=== PATIENT | male | born 1950 | race Two or more races ===

== ENCOUNTER 2018-12-28 01:55 | Inpatient (IN) | payer MEDICARE, OTHER ==
[2018-12-28] VITALS (7 sets, daily range): BP systolic 110–133; BP diastolic 67–77
[~2018-12-28] VITALS: Ht 167.6 cm; Wt 90.3 kg
--- NOTE | 2018-12-28 02:10 | Emergency Room Report ---
History of Present Illness General Chief Complaint: Chest Pain Source: Patient, Medical Record Present Illness HPI This is a 68-year-old male who is a [facility] patient. He has a history of sepsis, GI bleed. He presents with chief complaint of chest pain. Onset was about 40 minutes prior to arrival. He was laying in bed and developed sudden left-sided chest pain. It was sharp. No radiation. No nausea no vomiting. No fever chills. halfway gave him a dose of nitroglycerin. They called 911. He said the pain is 8 out of 10. Nursing Education Specialist gave him nitroglycerin and aspirin. Now pain is 1 out of 10. Never had this problem before. No exertional component. Allergies: Coded Allergies: No Known Allergies (Unverified , 12/28/18) Patient History Past Medical History: see triage record, old chart reviewed Past Surgical History: other Pertinent Family History: none Social History: Denies: smoking Immunizations: other Reviewed Nursing Documentation: PMH: Agreed; PSxH: Agreed Nursing Documentation-PM Past Medical History: No History, Except For Review of Systems Eye: Denies: eye pain, blurred vision ENT: Denies: ear pain, nose congestion, throat swelling Respiratory: Denies: cough, shortness of breath Cardiovascular: Reports: chest pain; Denies: palpitations Gastrointestinal: Denies: abdominal pain, diarrhea, nausea, vomiting Musculoskeletal: Denies: back pain, joint pain Skin: Denies: rash Neurological: Denies: headache, numbness Endocrine: Denies: increased thirst, increased urine Hematologic/Lymphatic: Denies: easy bruising All Other Systems: negative except mentioned in HPI Physical Exam Vital Signs Date Time Temp Pulse Resp B/P (MAP) Pulse Ox O2 Delivery O2 Flow Rate FiO2 12/28/18 01:53 98.2 72 18 118/75 (89) 98 Room Air Vitals normal Sp02 EP Interpretation: reviewed, normal General Appearance: well appearing, no apparent distress, alert Head: normocephalic, atraumatic Eyes: bilateral eye PERRL, bilateral eye EOMI ENT: hearing grossly normal, normal pharynx Neck: full range of motion, supple, no meningismus Respiratory: chest non-tender, lungs clear, normal breath sounds Cardiovascular #1: regular rate, rhythm, no murmur Gastrointestinal: normal bowel sounds, non tender, no mass, no organomegaly, no bruit, non-distended Musculoskeletal: back normal, normal range of motion Psychiatric: mood/affect normal Medical Decision Making Diagnostic Impression: Primary Impression: Chest pain Qualified Codes: R07.9 - Chest pain, unspecified Additional Impression: UTI (urinary tract infection) Qualified Codes: N30.00 - Acute cystitis without hematuria ER Course Patient presents with chest pain that got better with nitro. Atypical in nature but based on his age and risk factor, will admit for rule out. He does have a urinary tract infections and Rocephin was given. Based on his insurance , will admit to Dr. Aldridge. I discussed case with him. EKG Diagnostic Results Rate: normal Rhythm: NSR ST Segments: other - NSST changes Rhythm Strip Diag. Results EP Interpretation: yes Rate: 65 Rhythm: NSR, no PVC's, no ectopy Chest X-Ray Diagnostic Results Chest X-Ray Diagnostic Results : Chest X-Ray Ordered: Yes # of Views/Limited/Complete: 1 View Indication: Chest Pain EP Interpretation: Yes Interpretation: no consolidation, no effusion, no pneumothorax, no acute cardiopulmonary disease Impression: No acute disease Electronically Signed by: Micah Gooden MD Last Vital Signs Date Time Temp Pulse Resp B/P (MAP) Pulse Ox O2 Delivery O2 Flow Rate FiO2 12/28/18 01:53 98.2 72 18 118/75 (89) 98 Room Air Status: improved Disposition: ADMITTED INPATIENT Condition: Serious Micah Gooden MD Dec 28, 2018 02:10
[2018-12-28] MEDS ORDERED: NITROSTAT0.4 M2 SL (02:13)
[2018-12-28] MEDS ORDERED: DOCUSATE SODIU100 MG ORAL (02:13)
[2018-12-28] MEDS ORDERED: PANTOPRAZOLE SO40 MG ORAL (02:13)
[2018-12-28] MEDS ORDERED: COUMADIN2.5 MG ORAL (02:13)
[2018-12-28] MEDS ORDERED: FERROUSUL325 M1 PO (02:13)
[2018-12-28] MEDS ORDERED: CARVEDILOL3.125 MG ORAL (02:13)
[2018-12-28] MEDS ORDERED: LACTULOSE20 GM/301 ORAL (02:13)
[2018-12-28] MEDS ORDERED: FUROSEMIDE20 M1 ORAL (02:13)
[2018-12-28] MEDS ORDERED: SENNA8.6 M2 PO (02:13)
[2018-12-28] MEDS ORDERED: ULTRAM50 MG ORAL (02:13)
--- NOTE | 2018-12-28 02:15 | NUR ---
ER Nurse Note: Pt BIBA [facility] c/o chest pain, sudden onset while pt is resting in bed for about 40 mins ago prior to arrival. Pt stated pain was 6/10 throbbing and pressure on LT chest that radiates for LT arm. On route, EMS administed nitro and asa; effective and pain is 1/10. Pt a&ox4, VSS, no signs of acute distress. Redness with blanching was found around the groin and sacral area. SLIV started on RT wrist by EMS; patent. Will continue to [facility].
[2018-12-28 02:23] LABS: BASOPHILS % (AUTO) 0.5 % (0.0-2.0); EOSINOPHILS % (AUTO) 2.3 % (0.0-3.0); HEMATOCRIT 28.5 % (42.0-52.0); HEMOGLOBIN 9.2 G/DL (14.2-18.0); LYMPHOCYTES % (AUTO) 23.2 % (20.0-45.0); MEAN CORPUSCULAR VOLUME 83 FL (80-99); MONOCYTES % (AUTO) 7.7 % (1.0-10.0); NEUTROPHILS % (AUTO) 66.3 % (45.0-75.0); PLATELET COUNT 186 K/UL (150-450); RED BLOOD COUNT 3.41 M/UL (4.70-6.10); RED CELL DISTRIBUTION WIDTH 17.3 % (11.6-14.8); WHITE BLOOD COUNT 6.3 K/UL (4.8-10.8)
[2018-12-28 02:26] LABS: BILIRUBIN, URINE NEGATIVE (NEGATIVE); GLUCOSE, URINE (UA) NEGATIVE (NEGATIVE); KETONES,URINE 1+ (NEGATIVE); LEUKOCYTE ESTERASE ,URINE 1+ (NEGATIVE); NITRITE,URINE NEGATIVE (NEGATIVE); PH,URINE 6 (4.5-8.0); PROTEIN,URINE 2+ (NEGATIVE); UROBILINOGEN,URINE 1 MG/DL (0.0-1.0)
[2018-12-28 02:29] LABS: ANION GAP 6 mmol/L (5-15); BLOOD UREA NITROGEN 12 mg/dL (7-18); CARBON DIOXIDE 28 MMOL/L (21-32); CHLORIDE 102 MMOL/L (98-107); CREATININE 1.2 MG/DL (0.55-1.30); POTASSIUM 3.6 MMOL/L (3.5-5.1); SODIUM 136 MMOL/L (136-145)
[2018-12-28 02:35] LABS: COLOR,URINE YELLOW
[2018-12-28 02:36] LABS: APPEARANCE,URINE SLIGHTLY CLOUDY
[2018-12-28 02:43] LABS: ALANINE AMINOTRANSFERASE 68 U/L (12-78); ALBUMIN 2.2 G/DL (3.4-5.0); ALBUMIN/GLOBULIN RATIO 0.4 (1.0-2.7); ALKALINE PHOSPHATASE 135 U/L (46-116); ASPARTATE AMINO TRANSFERASE 73 U/L (15-37); BILIRUBIN,TOTAL 0.4 MG/DL (0.2-1.0); CREATINE KINASE 34 U/L (26-308)
--- NOTE | 2018-12-28 02:46 | NUR ---
ER Nurse Note: All orders completed per ERMD orders. Pictures uploaded. Pt calm, relaxed, cooperative. VSS. All safety measures met; will continue to monitor.
[2018-12-28] MEDS ORDERED: cefTRIAXone 1 GM in NS 55 ML IVPB ONE (03:00)
--- NOTE | 2018-12-28 03:22 | NUR ---
ER Nurse Note: Report given to YASMIN Tabor in tele for continuity of care. Pt a&ox4, VSS, no signs of distress. All orders completed per ERMD orders. Per CN in tele, room is getting ready and was told to bring pt in 10 minutes. All safety measures met; will continue to montior.
--- NOTE | 2018-12-28 03:40 | NUR ---
ER Nurse Note: Pt transported 207-2; pt stable.
--- NOTE | 2018-12-28 03:45 | NUR ---
NURSE NOTES: Received report from Saw Cormier RN. regarding patient's transfer to TELE floor from ED. No belongings noted and head to toe assessment initiated with noted skin issue observed (pictures taken). Patient is AAO X4 Prydeinig speaking with some Frisian noted. No complaints of CP or discomfort at this time. IV line intact and patent with continuous cardiac monitoring in place per protocol. Safety precaution in place; siderails X3 up, call light within reach, bed in lowest position, brakes and alarm on at all times. Patient is on bedrest and offered urinal at bedside. Needs and wants anticipated and attended, will continue plan of care.
[2018-12-28] MEDS ORDERED: Nitroglycerin Subl 0.4mg tab SL PRN (04:45)
--- NOTE | 2018-12-28 04:50 | NUR ---
NURSE NOTES: Spoke with Saulo Aldridge MD. regarding patient's arrival on the floor. New orders received and carried out. Will continue to monitor.
--- NOTE | 2018-12-28 06:00 | NUR ---
NURSE NOTES: EKG result reported to Saulo Aldridge MD. NNO
--- NOTE | 2018-12-28 07:10 | NUR ---
NURSE NOTES: Report received from Leander HOFFMAN.Pt asleep but awakens easily with verbal command alert oriented,,no resp distress presented,on RA,denies any c/o chest pain,verbalized feeling better,SR on the monitor,IV site to RH heplock intact ,skin warm and dry ,HOB elevated,SR up x2 bed lock in lowest position,will continue with plans of care.
[2018-12-28] MEDS ORDERED: Warfarin Sodium 2.5mg ORAL SCH (09:00)
[2018-12-28] MEDS: Lactulose 20gm/30ml UDC ORAL SCH (09:41)
[2018-12-28] MEDS: Docusate 100mg cap ORAL SCH ×2 (09:42→17:50)
[2018-12-28] MEDS: Sennosides 8.6mg tab ORAL SCH (09:42)
--- NOTE | 2018-12-28 13:28 | NUR ---
*-* INSURANCE *-* AVAILABLE CLINICALS HAVE BEEN FAXED TO: [facility] F: [phone] P: [phone]
--- NOTE | 2018-12-28 13:30 | NUR ---
NURSE NOTES: Dr Aldridge at bedside,discussed with pt re plans of care with an wrist liner Renae HOFFMAN.
--- NOTE | 2018-12-28 14:52 | History & Physical ---
History and Physical History & Physicial dict ACS CHF hx PE AZUL multiple other medical problems see orders cardiology to see Zac Aldridge MD Dec 28, 2018 14:52
[2018-12-28] MEDS ORDERED: Warfarin Sodium 1mg ORAL SCH (17:00)
--- NOTE | 2018-12-28 17:15 | History and Physical Report ---
DATE OF ADMISSION: 12/28/2018 CHIEF COMPLAINT: Chest pain. HISTORY OF PRESENT ILLNESS: The patient was hospitalized recently at another facility for sepsis and discharged to a retirement where he resided for several weeks getting rehabilitation therapy. Yesterday, he developed severe chest pain across the right anterior chest. He was transported to the emergency department here by paramedics and chest pain resolved after nitroglycerin. Admission was arranged. PAST MEDICAL HISTORY: The patient is a poor historian. Records from the retirement are reviewed. He has a history of hypertension, possible coronary disease, congestive heart failure with ejection fraction 25 to 30 percent, cardiomyopathy, atrial fibrillation with rapid ventricular response, now in sinus rhythm with PVC's. Recently, he has been admitted with sepsis due to urinary tract infection and GI bleeding due to a gastric ulcer. He had a right lower lobe pulmonary embolism and is now on anticoagulants. He had severe aortic stenosis and underwent transcutaneous aortic valve replacement on December 03, 2018. He has had a past stroke and has difficulty ambulating. The details of his coronary disease are not known. He has pulmonary hypertension and sleep apnea, on CPAP. MEDICATIONS: Reviewed in detail and reconciled. He is on Coumadin with therapeutic INR. ALLERGIES: None. REVIEW OF SYSTEMS: He has no chest pain at this time. He has no shortness of breath. There is no nausea, vomiting, or diarrhea. He has no difficulty urinating. There are no headaches. He has no visual difficulty. He is not ambulatory. He eats regular diet. PHYSICAL EXAMINATION: GENERAL: The patient is alert and responds appropriately in Ukrainian. VITAL SIGNS: Stable. The dish room worker shows sinus rhythm with PVC's. SKIN: Warm and dry. He is obese. HEENT: The head is normocephalic. CHEST: Clear. CARDIAC: Rhythm is irregular. ABDOMEN: Soft and nontender. EXTREMITIES: No clubbing, cyanosis, or edema. CODE STATUS: Full Code. IMPRESSION: 1. Acute coronary syndrome with history of coronary heart disease. Details unknown. 2. Status post TAVR. 3. History of atrial fibrillation and PVC's, currently in sinus rhythm. 4. History of sepsis. 5. Recent GI bleed due to gastric ulcer. 6. Recent pulmonary embolism, on therapeutic Coumadin. 7. Congestive heart failure with reduced ejection fraction. 8. Hyperlipidemia. 9. History of stroke involving the right middle cerebral artery. 10. Aortic atheromatous disease. 11. Anemia. PLAN: The patient has had normal troponin tests since admission. He will be seen by Cardiology and some cardiac imaging will be obtained to evaluate the severity of his coronary disease. He will be transferred back to a nursing facility and his condition is stabilized. However, he declines to go back to the same facility he came from. Zac Aldridge M.D. DR: GEORGES JOB#: [id number] CC:
--- NOTE | 2018-12-28 17:23 | Consultation ---
Consult Note Assessment/Plan IMP: CP doubt ischemia Elevated LFTs S/P TAVR AZUL Obesity H/O PE Plan: Abdominal CONSTANTIN Lexiscan stress test on Mon Adjust Coumadin Continue other meds. Discussed with Ag Salomon MD Dec 28, 2018 17:23
--- NOTE | 2018-12-28 17:47 | Cardiology Report ---
APPROVED REPORT EXAM: Two-dimensional and M-mode echocardiogram with Doppler and color Doppler. INDICATION Congestive Heart Failure M-Mode DIMENSIONS IVSd1.1 (0.7-1.1cm)Left Atrium (MM)3.5 (1.6-4.0cm) LVDd6.5 (3.5-5.6cm)Aortic Root2.9 (2.0-3.7cm) PWd1.4 (0.7-1.1cm)Aortic Cusp Exc.1.1 (1.5-2.0cm) LVDs4.9 (2.5-4.0cm) PWs1.8 cm Technically difficult study due to poor acoustic windows. Study quality precludes accurate assessment of regional wall motion. Mild left ventricular enlargement. Global left ventricular hypokinesis. Left ventricular ejection fraction estimated to be 40-45 %. Mild left ventricular hypertrophy. No evidence of pericardial effusion. Mild left atrial enlargement by 2D. Right atrial chamber size is within normal limits. Right ventricular chamber size at upper limits of normal. S/P TAVR with decreased aortic valve cusp excursion c/w aortic stenosis. Mildly thickened mitral valve leaflets with normal excursion. Mild mitral annulus and aortic root calcification. Pulmonic valve not well visualized. Normal tricuspid valve structure. IVC is normal in size with physiological collapse. A color flow and spectral Doppler study was performed and revealed: Mild to moderate aortic regurgitation. Peak aortic valve gradient of 53 mmHg and a mean of 27 mmHg. Aortic valve area 0.7 cm2 calculated by continuity equation. NOTE: Presence of AI may cause an overestimatio of A.S. Mild mitral regurgitation. Mitral inflow velocities indicates possible pseudo normalization pattern implying significant left ventricular diastolic dysfunction (Grade II). Mild tricuspid regurgitation. Tricuspid systolic velocities suggests peak right ventricular systolic pressure of 38 mmHg, consistent with mild pulmonary hypertension. No pulmonic regurgitation present.
--- NOTE | 2018-12-28 17:55 | Diagnostic Imaging Report ---
Indication: Chest pain for 2 hours Technique: One view of the chest Comparison: none Findings: Heart is borderline enlarged. The lungs and pleural spaces are clear. The aorta is tortuous and calcified Impression: Borderline cardiomegaly No acute process
--- NOTE | 2018-12-28 19:34 | NUR ---
HAND-OFF: Report given to Kristian Hilton RN,pt stable no c/o chest pain during the shift.
--- NOTE | 2018-12-28 19:46 | NUR ---
NURSE NOTES: Report received from YASMIN Henriquez. Observed pt lying in the bed. A/O x4, denies any pain. No signs of acute distress at this time. SR with PVC noted on telemetry monitor. IV on R FA 20G, SL. Bed in the lowest position. Side rails up x3. Call light within reach. Will continue to monitor.
--- NOTE | 2018-12-28 22:47 | NUR ---
RESPIRATORY NOTE: Pt placed on CPAP for nightly use. Pt now on CPAP 10, 30%. Pt placed on a Facial mask, skin intact, no redness/breakdowns noted. Foam tape applied on pt's nosebridge/cheeks/chin to prevent any mask irritations. Pt is alert/awake, follows commands. B/S eduarda. diminished, nonproductive cough. CPAP plugged into red outlet, alarms on & audible. Pt in no apparent distress at this time. Will continue plan of care.
--- NOTE | 2018-12-28 23:00 | NUR ---
NURSE NOTES: Left a message to regarding Mg is 1.4. Awaiting for call back.
--- NOTE | 2018-12-28 23:16 | NUR ---
NURSE NOTES: Notified regarding pt having trigeminy, asymptomatic, BP 130/69, P 60. New order received and will be carried out.
--- NOTE | 2018-12-28 23:46 | NUR ---
NURSE NOTES: Left a message regarding 4 beats of Vtach, asymptomatic, BP 120/60, P 60. Pt appears calm and comfortable. Awaiting call back. Will continue to monitor.
--- NOTE | 2018-12-28 23:54 | NUR ---
NURSE NOTES: New order of Mg 2g IVPB received and will be carried out. Pt appears calm and comfortable. On CPAP with no distress noted. Will continue to monitor.
[2018-12-29] VITALS: BP 131/61
--- NOTE | 2018-12-29 00:30 | Consultation ---
DATE OF CONSULTATION: 12/28/2018 CARDIOLOGY CONSULTATION CONSULTING PHYSICIAN: Ag Diaz M.D. ATTENDING PHYSICIAN: Zac Aldridge M.D. REASON FOR CONSULTATION: Evaluation of chest pain in patient with complicated past medical history. HISTORY OF PRESENT ILLNESS: The patient is a 68-year-old male, who was brought in from the [facility] because of an episode of chest pain, which lasted for 30 minutes. The patient describes the pain as a sharp pain, which started in the right lower chest area and radiated to the left lower chest area and was not exertionally induced and not related to food or activity. The patient has been sedentary and walks with a walker and is mostly in bed. The patient has had no further chest pain since admission. Troponins have been negative so far. EKG shows left bundle branch block with PVC's and has been nondiagnostic. PAST MEDICAL HISTORY: Significant for: 1. Aortic stenosis status post TAVR, 2. History of renal insufficiency. 3. History of gastric ulcer with H. pylori. 4. History of obstructive sleep apnea on CPAP. 5. Obesity. 6. History of UTI. 7. History of PVC's. 8. History of first-degree AV block. 9. History of pulmonary embolism. MEDICATIONS: Include Coumadin 2 mg a day, which has now been reduced to 1 mg due to elevated INR, carvedilol 3.125 mg b.i.d, Lasix 20 mg daily, lactulose 20 mg daily, Pantoprazole 40 mg daily, Senokot daily, ferrous sulfate 325 mg daily, nitroglycerin p.r.n., tramadol p.r.n., and ceftriaxone IV. ALLERGIES: None known. REVIEW OF SYSTEMS: GENERAL: Denies weight loss, fevers, chills, or night sweats. HEENT: Denies headaches or sinus problem. PULMONARY: Denies cough or sputum production. CARDIOVASCULAR: Complains of chest pain as above, but currently has no chest pain and denies chest pain with activity. He does not exercise, but walks with a walker at the assisted. GASTROINTESTINAL: Denies dysphagia, dyspepsia, abdominal pain, nausea, vomiting, or diarrhea. GENITOURINARY: Denies dysuria or hematuria. MUSCULOSKELETAL: Complains of pain in the upper extremities and his hands. PHYSICAL EXAMINATION: VITAL SIGNS: Blood pressure is 127/71, heart rate 97, temp afebrile. HEENT: Unremarkable. NECK: Supple. Jugular venous pressure is about 8 cm of water. LUNGS: Without rales or wheezes, but breath sounds are diminished at the bases with poor inspiration. CARDIAC: S1, S2 are normal. Heart sounds are distant. No murmurs heard. ABDOMEN: Obese, soft, and nontender. Bowel sounds are present. EXTREMITIES: Without cyanosis, clubbing, or edema, but there were chronic changes of the skin of the lower extremities bilaterally. DIAGNOSTIC DATA: EKG shows sinus rhythm with frequent PVC's and left bundle branch block and first-degree AV block. LABORATORY DATA: Reviewed. An echocardiogram was obtained which shows a mildly reduced LV ejection fraction with ejection fraction of 40 to 45 percent with aortic valve replacement. Aortic valve area is reduced with aortic valve area of 0.7 cm consistent with severe aortic stenosis. There is mild tricuspid and mitral regurgitation. The tricuspid velocities suggest systolic pressure of 38 mmHg consistent with mild pulmonary hypertension. IMPRESSION: 1. Status post TAVR, still with increased Aortic valve gradient which may be due to the valve structure and presence of AI. 2. Cardiomyopathy with reduced LV ejection fraction. 3. LV dysfunction with congestive heart failure. 4. Left bundle branch block. 5. First-degree AV block. 6. Chest pain, most likely, nonischemic based on the nature of the pain and lack of history of coronary artery disease. 7. Obstructive sleep apnea. 8. Obesity. 9. History of GI bleed. PLAN OF SUGGESTION: At this point, we will continue current medication and reduced dose of Coumadin as has been initiated. Echocardiogram and EKGs have been reviewed. Will schedule Lexiscan nuclear stress test to r/o ischemia. If stress test is negative and the patient remains stable, I would feel that he can be discharged back to the extended care facility and monitored for his PT/INR and dose of Coumadin adjusted. Dr. Aldridge, thank you for allowing me to participate in the care of this patient and I will be happy to follow with you as necessary. Ag Diaz M.D. DR: AFTAB JOB#: [id number] CC: Ag Diaz M.D.; Fax#: [phone] The Chart MTDD
--- NOTE | 2018-12-29 01:24 | NUR ---
NURSE NOTES: Observed pt sleeping in the bed. On CPAP 10, 30%. No acute distress noted at this time. SR with BBB and 1st AVB noted on library monitor. Will continue to monitor.
[2018-12-29] MEDS: traMADol 50mg tab ORAL PRN (03:33)
[2018-12-29 04:00] VITALS: BP 135/64
--- NOTE | 2018-12-29 07:26 | NUR ---
HAND-OFF: Report given to YASMIN Henriquez. No acute distress noted at this time.
--- NOTE | 2018-12-29 07:30 | NUR ---
NURSE NOTES: Report received from Kristian Hilton RN.Pt resting quietly in bed awake,alert oriented in no resp distress,denies any c/o chest pain or discomfort,SR on the monitor,kept NPO for ultrasound of Abdomen, IV site to RH heplock intact,skin warm and dry,SRn up x2 HOB elevated,bed lock in lowest position will continue with plans of care.
[2018-12-29 08:00] VITALS: BP 141/57
[2018-12-29 08:34] LABS: INR 1.7 (0.9-1.1)
[2018-12-29 08:39] LABS: BASOPHILS % (AUTO) 0.7 % (0.0-2.0); EOSINOPHILS % (AUTO) 2.6 % (0.0-3.0); HEMATOCRIT 26.7 % (42.0-52.0); HEMOGLOBIN 8.4 G/DL (14.2-18.0); MEAN CORPUSCULAR VOLUME 84 FL (80-99); MONOCYTES % (AUTO) 9.7 % (1.0-10.0); PLATELET COUNT 153 K/UL (150-450); RED BLOOD COUNT 3.17 M/UL (4.70-6.10); RED CELL DISTRIBUTION WIDTH 17.2 % (11.6-14.8); WHITE BLOOD COUNT 5.4 K/UL (4.8-10.8)
[2018-12-29 08:57] LABS: ALANINE AMINOTRANSFERASE 51 U/L (12-78); ALBUMIN 2.2 G/DL (3.4-5.0); ALBUMIN/GLOBULIN RATIO 0.5 (1.0-2.7); ALKALINE PHOSPHATASE 113 U/L (46-116); ANION GAP 3 mmol/L (5-15); ASPARTATE AMINO TRANSFERASE 54 U/L (15-37); BILIRUBIN,TOTAL 0.5 MG/DL (0.2-1.0); BLOOD UREA NITROGEN 10 mg/dL (7-18); CARBON DIOXIDE 31 MMOL/L (21-32); CHLORIDE 103 MMOL/L (98-107); CREATININE 1.1 MG/DL (0.55-1.30); POTASSIUM 3.6 MMOL/L (3.5-5.1); SODIUM 137 MMOL/L (136-145)
--- NOTE | 2018-12-29 09:00 | NUR ---
NURSE NOTES: PO medic on hold pending US of Abdomen,pt is NPO.
[2018-12-29 12:00] VITALS: BP 137/58
--- NOTE | 2018-12-29 12:00 | NUR ---
NURSE NOTES: Ultra sound Tech at bedside,US of abdomen in progress.
[2018-12-29] MEDS: Docusate 100mg cap ORAL SCH ×2 (13:40→17:24)
[2018-12-29] MEDS: Lactulose 20gm/30ml UDC ORAL SCH (13:40)
[2018-12-29] MEDS: Sennosides 8.6mg tab ORAL SCH (13:41)
--- NOTE | 2018-12-29 14:24 | NUR ---
NURSE NOTES: Dr Diaz at bedside,aware of pt's abnormal EKG rhythm.
--- NOTE | 2018-12-29 14:29 | Cardiology Progress Note ---
Assessment/Plan Status Narrative H/O A.S. s/p TAVR CMP HTN PVCs/ VT CP - NC ruled out Elevated LFTs Assessment/Plan Continue current meds Await Abd. CONSTANTIN results Lexiscan stress test on Monday Continue meds. Increase Coreg to 6.25 mg BID, may need to increase further if BP tolerates. Subjective Cardiovascular: Reports: palpitations; Denies: chest pain Respiratory: Denies: cough, orthopnea, shortness of breath Gastrointestinal/Abdominal: Reports: no symptoms; Denies: abdominal pain Genitourinary: Reports: no symptoms Subjective Feeling better, no CP. Had abd. CONSTANTIN done Last nite had PVCs with 4 beat VT. Mg level 1.4. IV mg given Objective Last 24 Hour Vital Signs Date Time Temp Pulse Resp B/P (MAP) Pulse Ox O2 Delivery O2 Flow Rate FiO2 12/29/18 13:40 59 137/58 12/29/18 12:00 59 12/29/18 12:00 98.1 54 18 137/58 (84) 96 12/29/18 09:00 Room Air 12/29/18 08:00 98.3 58 18 141/57 (85) 98 12/29/18 08:00 55 12/29/18 04:00 97.5 61 20 135/64 (87) 98 12/29/18 04:00 62 12/29/18 03:25 30 12/29/18 03:12 60 17 100 Facial 30 12/29/18 00:55 60 18 98 Facial 30 12/29/18 00:00 30 12/29/18 00:00 61 12/29/18 00:00 98.0 63 19 131/61 (84) 99 12/28/18 22:45 61 21 97 Facial 30 12/28/18 22:45 61 21 97 Bi-Pap 30 12/28/18 22:30 30 12/28/18 21:00 Room Air 12/28/18 20:55 65 130/69 12/28/18 20:00 65 12/28/18 20:00 97.0 60 19 130/69 (89) 97 12/28/18 16:00 97.7 61 20 117/67 (84) 97 12/28/18 16:00 59 General Appearance: WD/WN, no apparent distress EENT: PERRL/EOMI Neck: supple Rhythm: NSR, PVCs Cardiovascular: regular rhythm, no gallop/murmur Respiratory/Chest: lungs clear Abdomen: normal bowel sounds, non tender, soft, no organomegaly, no mass Extremities: non-tender, no calf tenderness, no swelling Intake and Output 12/28/18 12/29/18 19:00 07:00 Intake Total 450 ml 320 ml Balance 450 ml 320 ml Intake Oral 450 ml 120 ml IV Total 200 ml # Voids 5 2 # Bowel Movements 1 Laboratory Tests Test 12/28/18 21:42 12/29/18 07:34 Magnesium Level 1.4 MG/DL (1.8-2.4) L Troponin I 0.023 ng/mL (0.000-0.056) White Blood Count 5.4 K/UL (4.8-10.8) Red Blood Count 3.17 M/UL (4.70-6.10) L Hemoglobin 8.4 G/DL (14.2-18.0) L Hematocrit 26.7 % (42.0-52.0) L Mean Corpuscular Volume 84 FL (80-99) Mean Corpuscular Hemoglobin 26.7 PG (27.0-31.0) L Mean Corpuscular Hemoglobin Concent 31.6 G/DL (32.0-36.0) L Red Cell Distribution Width 17.2 % (11.6-14.8) H Platelet Count 153 K/UL (150-450) Mean Platelet Volume 4.4 FL (6.5-10.1) L Neutrophils (%) (Auto) 62.0 % (45.0-75.0) Lymphocytes (%) (Auto) 25.0 % (20.0-45.0) Monocytes (%) (Auto) 9.7 % (1.0-10.0) Eosinophils (%) (Auto) 2.6 % (0.0-3.0) Basophils (%) (Auto) 0.7 % (0.0-2.0) Prothrombin Time 17.5 SEC (9.30-11.50) H Prothromb Time International Ratio 1.7 (0.9-1.1) H Sodium Level 137 MMOL/L (136-145) Potassium Level 3.6 MMOL/L (3.5-5.1) Chloride Level 103 MMOL/L (98-107) Carbon Dioxide Level 31 MMOL/L (21-32) Anion Gap 3 mmol/L (5-15) L Blood Urea Nitrogen 10 mg/dL (7-18) Creatinine 1.1 MG/DL (0.55-1.30) Estimat Glomerular Filtration Rate > 60 mL/min (>60) Glucose Level 96 MG/DL (74-106) Calcium Level 9.0 MG/DL (8.5-10.1) Total Bilirubin 0.5 MG/DL (0.2-1.0) Aspartate Amino Transf (AST/SGOT) 54 U/L (15-37) H Alanine Aminotransferase (ALT/SGPT) 51 U/L (12-78) Alkaline Phosphatase 113 U/L (46-116) Total Protein 7.0 G/DL (6.4-8.2) Albumin 2.2 G/DL (3.4-5.0) L Globulin 4.8 g/dL Albumin/Globulin Ratio 0.5 (1.0-2.7) L Microbiology Date/Time Source Procedure Growth Status 12/28/18 02:15 Nasal Nares MRSA Culture - Final Staphylococcus Aureus - Mrsa Complete 12/28/18 02:20 Urine,Clean Catch Urine Culture - Preliminary Gram Negative Narciso Resulted 12/28/18 02:15 Rectum Received Ag Diaz MD Dec 29, 2018 14:29
--- NOTE | 2018-12-29 14:30 | NUR ---
NURSE NOTES: Seen by Dr Diaz,aware of pt's abnormal ECG strips,with orders noted.
--- NOTE | 2018-12-29 14:43 | Cardiology Report ---
APPROVED REPORT EKG Measurement Heart [id number] Sinus rhythm with 1st degree AV block with frequent premature ventricular complexes Left axis deviation Left bundle branch block Abnormal ECG
--- NOTE | 2018-12-29 14:48 | Cardiology Report ---
APPROVED REPORT EKG Measurement Heart [id number] Sinus rhythm with 1st degree AV block with frequent premature ventricular complexes Left axis deviation Nonspecific intraventricular block Cannot rule out Inferior infarct, age undetermined Abnormal ECG
--- NOTE | 2018-12-29 15:12 | Diagnostic Imaging Report ---
EXAM: US Abdomen Complete CLINICAL HISTORY: Chest pain TECHNIQUE: Real-time ultrasound of the abdomen (complete) with image documentation. COMPARISON: No relevant prior studies available. FINDINGS: Liver: Diffusely echogenic liver, suggesting fatty infiltration. Liver diameter of 16.9 cm. No visible parenchymal lesions. No intrahepatic biliary ductal dilatation. Gallbladder: Mild diffusely thickened gallbladder wall measuring up to 6.5 mm. Mild pericholecystic fluid. No visible gallstones or sludge. Common bile duct: Common bile duct diameter 3.7 mm, within normal limits. Pancreas: Unremarkable as visualized. Pancreatic body and tail are obscured by bowel gas. Kidneys: 2.7 x 2.4 cm solid masslike lesion in the right lower renal pole. 1.2 x 0.8 cm simple-appearing cortical cyst in the mid right kidney. Right kidney length of 11 cm. Left kidney length of 10.8 cm. Normal cortical thickness. No visible stones. No hydronephrosis. Spleen: Spleen is enlarged, with a diameter of 13.8 cm. Aorta: Obscured by bowel gas. Inferior vena cava: Obscured by bowel gas. IMPRESSION: 1. 2.7 x 2.4 cm solid masslike lesion in the right lower renal pole. Recommend further evaluation with contrast-enhanced CT or MRI. 2. Gallbladder wall thickening, measuring up to 6.5 mm. Mild pericholecystic fluid. No visible gallstones or sludge. Cannot exclude an acalculous cholecystitis. 3. Spleen is enlarged, with a diameter of 13.8 cm. 4. 1.2 x 0.8 cm simple-appearing cortical cyst in the mid right kidney. 5. Diffusely echogenic liver, suggesting fatty infiltration.
[2018-12-29 16:00] VITALS: BP 134/66
[2018-12-29] MEDS ORDERED: Warfarin Sodium 1mg ORAL SCH (17:00)
[2018-12-29] MEDS ORDERED: Tubing IV Secondary IV ONE (17:32)
[2018-12-29] MEDS ORDERED: NS 275ml ONE (17:32)
[2018-12-29] MEDS ORDERED: PANTOPRAZOLE SO40 MG ORAL (18:00)
[2018-12-29] MEDS ORDERED: DERMAFUNGAL113 GM TP (18:14)
[2018-12-29] MEDS ORDERED: A AND D DIAPER113 GM TP (18:14)
[2018-12-29] MEDS ORDERED: ASCORBIC ACID500 MG ORAL (18:14)
[2018-12-29] MEDS ORDERED: POVIDONE IODINE TOP (18:14)
[2018-12-29] MEDS ORDERED: AMIODARONE HCL400 M1 ORAL (18:14)
[2018-12-29] MEDS ORDERED: ASPIRIN EC81 MG ORAL (18:14)
[2018-12-29] MEDS ORDERED: ATORVASTATIN CA40 MG ORAL (18:14)
[2018-12-29] MEDS ORDERED: MULTIVITAMINS1 EAC2 ORAL (18:21)
[2018-12-29] MEDS ORDERED: MAGNESIUM CITR296 M1 PO (18:21)
[2018-12-29] MEDS ORDERED: VOLTAREN100 G1 TP (18:21)
--- NOTE | 2018-12-29 19:25 | NUR ---
HAND-OFF: Report given to King Gaona RN,pt resting in bed ,stable no Cp presented during the shift.
--- NOTE | 2018-12-29 19:26 | NUR ---
NURSE NOTES: Got report from Florence HOFFMAN. Pt in stable condition. Denies any pain. No s/s of distress or discomfort noted. Pt resting in bed comfortably. Bed in low and locked position, call light within reach, bedside table within reach. Continue to monitor.
[2018-12-29 20:00] VITALS: BP 146/63
--- NOTE | 2018-12-29 20:13 | Pulmonology Progress Note ---
Assessment/Plan Assessment/Plan 1. Acute coronary syndrome with history of coronary heart disease. Details unknown. 2. Status post TAVR. 3. History of atrial fibrillation and PVC's, currently in sinus rhythm. 4. History of sepsis. 5. Recent GI bleed due to gastric ulcer. 6. Recent pulmonary embolism, on therapeutic Coumadin. 7. Congestive heart failure with reduced ejection fraction. 8. Hyperlipidemia. 9. History of stroke involving the right middle cerebral artery. 10. Aortic athersclerosis 11. UTI start abx and fu UA results check labs bipap qhs and prn distress wound care CM to address placemetn issues Subjective Constitutional: Reports: no symptoms HEENT: Repors: no symptoms Respiratory: Reports: dry cough, productive cough Cardiovascular: Reports: no symptoms Gastrointestinal/Abdominal: Reports: no symptoms Allergies: Coded Allergies: No Known Allergies (Unverified , 12/28/18) Subjective awale on RA no distress not getting oob no pain no vnv or bleeding Objective Last 24 Hour Vital Signs Date Time Temp Pulse Resp B/P (MAP) Pulse Ox O2 Delivery O2 Flow Rate FiO2 12/29/18 16:00 97.7 71 18 134/66 (88) 99 12/29/18 16:00 63 12/29/18 13:40 59 137/58 12/29/18 12:00 59 12/29/18 12:00 98.1 54 18 137/58 (84) 96 12/29/18 09:00 Room Air 12/29/18 08:00 98.3 58 18 141/57 (85) 98 12/29/18 08:00 55 12/29/18 04:00 97.5 61 20 135/64 (87) 98 12/29/18 04:00 62 12/29/18 03:25 30 12/29/18 03:12 60 17 100 Facial 30 12/29/18 00:55 60 18 98 Facial 30 12/29/18 00:00 30 12/29/18 00:00 61 12/29/18 00:00 98.0 63 19 131/61 (84) 99 12/28/18 22:45 61 21 97 Facial 30 12/28/18 22:45 61 21 97 Bi-Pap 30 12/28/18 22:30 30 12/28/18 21:00 Room Air 12/28/18 20:55 65 130/69 Intake and Output 8/16/19 8/17/19 18:59 06:59 Intake Total 450 ml 320 ml Balance 450 ml 320 ml Intake Oral 450 ml 120 ml IV Total 200 ml # Voids 5 2 # Bowel Movements 1 General Appearance: WD/WN Respiratory/Chest: rhonchi Cardiovascular: normal rate, regular rhythm Abdomen: soft, non tender, no organomegaly Skin: no rash, no ulcers Neurologic/Psychiatric: alert, responsive Microbiology Date/Time Source Procedure Growth Status 12/28/18 02:15 Nasal Nares MRSA Culture - Final Staphylococcus Aureus - Mrsa Complete 12/28/18 02:20 Urine,Clean Catch Urine Culture - Preliminary Gram Negative Narciso Resulted 12/28/18 02:15 Rectum Received Laboratory Tests 12/28/18 21:42: Magnesium Level 1.4L, Troponin I 0.023 12/29/18 07:34: White Blood Count 5.4, Red Blood Count 3.17L, Hemoglobin 8.4L, Hematocrit 26.7L , Mean Corpuscular Volume 84, Mean Corpuscular Hemoglobin 26.7L, Mean Corpuscular Hemoglobin Concent 31.6L, Red Cell Distribution Width 17.2H, Platelet Count 153, Mean Platelet Volume 4.4L, Neutrophils (%) (Auto) 62.0, Lymphocytes (%) (Auto) 25.0, Monocytes (%) (Auto) 9.7, Eosinophils (%) (Auto) 2.6, Basophils (%) (Auto) 0.7, Prothrombin Time 17.5H, Prothromb Time International Ratio 1.7H, Sodium Level 137, Potassium Level 3.6, Chloride Level 103, Carbon Dioxide Level 31, Anion Gap 3L, Blood Urea Nitrogen 10, Creatinine 1.1, Estimat Glomerular Filtration Rate > 60, Glucose Level 96, Calcium Level 9.0, Total Bilirubin 0.5, Aspartate Amino Transf (AST/SGOT) 54H, Alanine Aminotransferase (ALT/SGPT) 51, Alkaline Phosphatase 113, Total Protein 7.0, Albumin 2.2L, Globulin 4.8, Albumin/Globulin Ratio 0.5L Current Medications Medications (Trade) Dose Ordered Sig/Chloe Route PRN Reason Start Time Stop Time Status Last Admin Dose Admin Carvedilol (Coreg) 6.25 mg EVERY 12 HOURS ORAL 12/29/18 21:00 01/28/19 20:59 Docusate Sodium (Colace) 100 mg TWICE A DAY ORAL 12/28/18 09:00 01/27/19 08:59 12/29/18 17:24 Ferrous Sulfate (Feosol) 325 mg ACBREAKFAST ORAL 12/28/18 06:30 01/27/19 06:29 12/29/18 06:02 Furosemide (Lasix) 20 mg DAILY ORAL 12/28/18 09:00 01/27/19 08:59 12/29/18 13:41 Lactulose (Cephulac) 20 gm DAILY ORAL 12/28/18 09:00 01/27/19 08:59 12/29/18 13:40 Nitroglycerin (Ntg) 0.4 mg Q5M PRN SL Prn Chest Pain 12/28/18 04:45 01/27/19 04:44 Pantoprazole (Protonix) 40 mg DAILY ORAL 12/28/18 09:00 01/27/19 08:59 12/29/18 13:41 Potassium Chloride (K-Dur) 40 meq DAILY ORAL 12/30/18 09:00 01/29/19 08:59 Regadenoson (Lexiscan) 0.4 mg ONCE IV 12/31/18 06:00 12/31/18 19:00 Sennosides (Senokot) 8.6 mg DAILY ORAL 12/28/18 09:00 01/27/19 08:59 12/29/18 13:41 Tramadol HCl (Ultram) 50 mg Q4H PRN ORAL Moderate Pain (Pain Scale 4-6) 12/28/18 04:45 01/04/19 04:44 12/29/18 03:33 Warfarin Sodium (Coumadin per pharmacy) 1 ea DAILY PRN MISC . 12/28/18 07:15 01/27/19 07:14 Caitlyn Patel DO Dec 29, 2018 20:13
[2018-12-29] MEDS: Carvedilol 6.25mg Tab ORAL SCH (21:00)
[2018-12-29] MEDS: Piperacillin/Tazobactam 3.375 GM in NS 110 ML IVPB SCH (22:00)
[2018-12-30] VITALS: BP 123/62
[2018-12-30 04:00] VITALS: BP 152/61
[2018-12-30] MEDS: Piperacillin/Tazobactam 3.375 GM in NS 110 ML IVPB SCH ×3 (05:49→21:42)
--- NOTE | 2018-12-30 07:59 | NUR ---
HAND-OFF: Report given to Jovanny HOFFMAN. Endorsed plan of care.
[2018-12-30 08:00] VITALS: BP 129/77
--- NOTE | 2018-12-30 08:00 | NUR ---
NURSE NOTES: Pt in bed in low position, bed alarm on and HOB in high fowlers, call light at bedside, pt makes needs known, Cook Islander speaker, reports right hand pain that has been going on before admission pain level is 3 and tolerable for the pt, breakfast at bedside, pt on Room air, IV site patent and running ABX, mag level was low and night nurse stated the pt received 2 bags of mag, pt will need to be turn Q2hrs, no s/s of distress or SOB noted.
[2018-12-30 08:44] LABS: BASOPHILS % (AUTO) 0.8 % (0.0-2.0); EOSINOPHILS % (AUTO) 2.5 % (0.0-3.0); HEMATOCRIT 26.8 % (42.0-52.0); HEMOGLOBIN 8.4 G/DL (14.2-18.0); LYMPHOCYTES % (AUTO) 24.5 % (20.0-45.0); MEAN CORPUSCULAR VOLUME 85 FL (80-99); MONOCYTES % (AUTO) 9.8 % (1.0-10.0); NEUTROPHILS % (AUTO) 62.3 % (45.0-75.0); PLATELET COUNT 145 K/UL (150-450); RED BLOOD COUNT 3.18 M/UL (4.70-6.10); RED CELL DISTRIBUTION WIDTH 17.3 % (11.6-14.8); WHITE BLOOD COUNT 5.5 K/UL (4.8-10.8)
[2018-12-30 08:49] LABS: INR 1.6 (0.9-1.1)
[2018-12-30 09:00] LABS: ANION GAP 8 mmol/L (5-15); BLOOD UREA NITROGEN 10 mg/dL (7-18); CALCIUM 9.1 MG/DL (8.5-10.1); CARBON DIOXIDE 28 MMOL/L (21-32); CHLORIDE 99 MMOL/L (98-107); CREATININE 1.1 MG/DL (0.55-1.30); POTASSIUM 3.5 MMOL/L (3.5-5.1); SODIUM 135 MMOL/L (136-145)
[2018-12-30] MEDS: Lactulose 20gm/30ml UDC ORAL SCH (09:41)
[2018-12-30] MEDS: Sennosides 8.6mg tab ORAL SCH (09:42)
[2018-12-30] MEDS: Docusate 100mg cap ORAL SCH ×2 (09:42→17:43)
[2018-12-30] MEDS: Carvedilol 6.25mg Tab ORAL SCH ×2 (09:42→21:00)
[2018-12-30 12:00] VITALS: BP 124/71
[2018-12-30 16:00] VITALS: BP 114/53
[2018-12-30] MEDS ORDERED: Warfarin Sodium 1mg ORAL SCH (17:00)
[2018-12-30 20:00] VITALS: BP 106/58
--- NOTE | 2018-12-30 20:35 | Pulmonology Progress Note ---
Assessment/Plan Assessment/Plan 1. Acute coronary syndrome with history of coronary heart disease. Details unknown. 2. Status post TAVR. 3. History of atrial fibrillation and PVC's, currently in sinus rhythm. 4. History of sepsis. 5. Recent GI bleed due to gastric ulcer. 6. Recent pulmonary embolism, on therapeutic Coumadin. 7. Congestive heart failure with reduced ejection fraction. 8. Hyperlipidemia. 9. History of stroke involving the right middle cerebral artery. 10. Aortic athersclerosis 11. UTI continueabx and fu UA results check labs bipap qhs and prn distress wound care CM to address placement issues hgb stable Subjective Constitutional: Reports: no symptoms HEENT: Repors: no symptoms Respiratory: Reports: no symptoms Cardiovascular: Reports: no symptoms Allergies: Coded Allergies: No Known Allergies (Unverified , 12/28/18) Subjective awake on RA no distress not getting oob and wants to get up and walk no pain no vnv or bleeding Objective Last 24 Hour Vital Signs Date Time Temp Pulse Resp B/P (MAP) Pulse Ox O2 Delivery O2 Flow Rate FiO2 12/30/18 16:00 97.7 59 18 114/53 (73) 98 12/30/18 15:27 62 12/30/18 12:00 97.2 61 21 124/71 (88) 97 12/30/18 11:48 61 12/30/18 09:42 61 129/77 12/30/18 08:18 Room Air 12/30/18 08:00 97.0 61 20 129/77 (94) 96 12/30/18 07:48 64 12/30/18 04:00 97.9 55 19 152/61 (91) 97 12/30/18 04:00 57 12/30/18 03:07 68 21 98 Facial 30 12/30/18 00:05 62 18 96 Facial 30 12/30/18 00:00 57 12/30/18 00:00 97.5 62 19 123/62 (82) 99 12/29/18 21:00 45 136/63 12/29/18 21:00 Room Air Intake and Output 12/29/18 12/30/18 18:59 06:59 Intake Total 600 ml Output Total 350 ml Balance 250 ml Intake Oral 600 ml Output Urine Total 350 ml # Voids 1 3 # Bowel Movements 2 General Appearance: WD/WN Respiratory/Chest: chest wall non-tender, lungs clear, normal breath sounds Cardiovascular: normal rate, regular rhythm, edema, other Abdomen: soft, non tender, no organomegaly Neurologic/Psychiatric: alert, oriented x 3, responsive Microbiology Date/Time Source Procedure Growth Status 12/28/18 02:15 Nasal Nares MRSA Culture - Final Staphylococcus Aureus - Mrsa Complete 12/28/18 02:20 Urine,Clean Catch Urine Culture - Preliminary Pseudomonas Aeruginosa Gram Negative Bacillus 2 Resulted 12/28/18 02:15 Rectum - Final NO CARBAPENEM-RESISTANT ENTEROBACTERI... Complete 12/28/18 02:15 Rectum VRE Culture - Final NO VANCOMYCIN RESISTANT ENTEROCOCCUS ... Complete Laboratory Tests 12/30/18 06:44: White Blood Count 5.5, Red Blood Count 3.18L, Hemoglobin 8.4L, Hematocrit 26.8L , Mean Corpuscular Volume 85, Mean Corpuscular Hemoglobin 26.6L, Mean Corpuscular Hemoglobin Concent 31.4L, Red Cell Distribution Width 17.3H, Platelet Count 145L, Mean Platelet Volume 4.6L, Neutrophils (%) (Auto) 62.3, Lymphocytes (%) (Auto) 24.5, Monocytes (%) (Auto) 9.8, Eosinophils (%) (Auto) 2.5, Basophils (%) (Auto) 0.8, Prothrombin Time 16.7H, Prothromb Time International Ratio 1.6H, Sodium Level 135L, Potassium Level 3.5, Chloride Level 99, Carbon Dioxide Level 28, Anion Gap 8, Blood Urea Nitrogen 10, Creatinine 1.1, Estimat Glomerular Filtration Rate > 60, Glucose Level 91, Calcium Level 9.1 Current Medications Medications (Trade) Dose Ordered Sig/Chloe Route PRN Reason Start Time Stop Time Status Last Admin Dose Admin Carvedilol (Coreg) 6.25 mg EVERY 12 HOURS ORAL 12/29/18 21:00 01/28/19 20:59 12/30/18 09:42 Docusate Sodium (Colace) 100 mg TWICE A DAY ORAL 12/28/18 09:00 01/27/19 08:59 12/30/18 17:43 Ferrous Sulfate (Feosol) 325 mg ACBREAKFAST ORAL 12/28/18 06:30 01/27/19 06:29 12/30/18 06:01 Furosemide (Lasix) 20 mg DAILY ORAL 12/28/18 09:00 01/27/19 08:59 12/30/18 09:42 Lactulose (Cephulac) 20 gm DAILY ORAL 12/28/18 09:00 01/27/19 08:59 12/30/18 09:41 Nitroglycerin (Ntg) 0.4 mg Q5M PRN SL Prn Chest Pain 12/28/18 04:45 01/27/19 04:44 Ondansetron HCl (Zofran) 4 mg Q6H PRN IVP Nausea & Vomiting 12/30/18 13:15 01/29/19 13:14 12/30/18 13:26 Pantoprazole (Protonix) 40 mg DAILY ORAL 12/28/18 09:00 01/27/19 08:59 12/30/18 09:42 Piperacillin Sod/ Tazobactam Sod 3.375 gm/Sodium Chloride 110 ml @ 27.5 mls/hr EVERY 8 HOURS IVPB 12/29/18 22:00 01/03/19 21:59 12/30/18 14:03 Potassium Chloride (K-Dur) 40 meq DAILY ORAL 12/30/18 09:00 01/29/19 08:59 12/30/18 09:42 Regadenoson (Lexiscan) 0.4 mg ONCE IV 12/31/18 06:00 12/31/18 19:00 Sennosides (Senokot) 8.6 mg DAILY ORAL 12/28/18 09:00 01/27/19 08:59 12/30/18 09:42 Tramadol HCl (Ultram) 50 mg Q4H PRN ORAL Moderate Pain (Pain Scale 4-6) 12/28/18 04:45 01/04/19 04:44 12/29/18 03:33 Warfarin Sodium (Coumadin per pharmacy) 1 ea DAILY PRN MISC . 12/28/18 07:15 01/27/19 07:14 Caitlyn Patel DO Dec 30, 2018 20:35
[2018-12-31] VITALS: BP 110/59
[2018-12-31 04:00] VITALS: BP 110/62
[2018-12-31] MEDS: Piperacillin/Tazobactam 3.375 GM in NS 110 ML IVPB SCH ×3 (05:37→22:25)
[2018-12-31] MEDS ORDERED: Lexiscan 0.4mg/5ml syringe IV SCH (06:00)
--- NOTE | 2018-12-31 07:00 | NUR ---
HAND-OFF: Report given to Namrata HOFFMAN. Endorsed plan of care.
[2018-12-31 07:09] LABS: INR 1.6 (0.9-1.1)
--- NOTE | 2018-12-31 07:10 | NUR ---
NURSE NOTES: Nurse report given by YASMIN Malik. Patient's awake at bedside. Denies pain, AO x 3. Gabonese speaking only. No s/s of distress or SOB. Bed at lowest position, break engaged, call light within reach. IV is running fluid, no sign of redness or tenderness. Will continue to monitor.
--- NOTE | 2018-12-31 07:40 | NUR ---
NURSE NOTES: Nurse report given by YASMIN Chanel. Patient's getting ready to go down for PEG placement. Patient's in stable condition, no s/s of acute distress or SOB. IV is saline lock, flushed well, patent and asymptomatic. AO x 1, lethargic. Patient's off the floor at 0745. Will continue to monitor. Addendum: 12/31/18 at 0751 by Estrellita Blair RN Wrong patient's note.
[2018-12-31 08:00] VITALS: BP 114/65
--- NOTE | 2018-12-31 08:51 | NUR ---
CASE MANAGEMENT:REVIEW 68 YR OLD MALE BIBA FROM [facility] CC: CHEST PAIN SI: CHEST PAIN. UTI 98.2 72 18 118/75 98% ON RA H/H-9.2/28.5 TROPONIN(-) PT+17.5 INR-1.7 IS: IV ROCEPHIN IV MAG SULFATE Q1HRS X2 URINE CX CHEST XRAY : TO TELEMETRY 12/30/18 SI: ACS. CHF. RECENT PULMONARY EMBOLISM 97.7 59 18 114/53 98% ON RA PT+16.7 INR-1.6 IS: COUMADIN 2MG PO X1 K-DUR PO QD IV ZOSYN Q8HRS LASIX PO QD COREG PO Q12 LACTULOSE PO QD PROTONIX PO QD : TELEMETRY STATUS PLAN: CARDIAC CONSULT 12/31/18 SI: ACS. CHF. RECENT PULMONARY EMBOLISM 98.0 60 18 110/62 98% ON RA PT+16.4 INR-1.6 IS: COUMADIN 2MG PO X1 IV LEXISCAN IV ZOSYN Q8HRS COREG PO Q12 LASIX PO QD LACTULOSE PO QD : TELEMETRY STATUS DCP: FROM [facility] PLAN: CARDIAC STRESS TEST SCHEDULED FOR TODAY
[2018-12-31] MEDS: Carvedilol 6.25mg Tab ORAL SCH ×2 (09:00→21:04)
[2018-12-31] MEDS: Lactulose 20gm/30ml UDC ORAL SCH (09:32)
[2018-12-31] MEDS: Sennosides 8.6mg tab ORAL SCH (09:32)
[2018-12-31] MEDS: Docusate 100mg cap ORAL SCH ×2 (09:32→18:00)
--- NOTE | 2018-12-31 09:40 | CDS Physician Query ---
PLEASE COMPLETE THE DOCUMENT BEFORE SIGNING Dear Dr. Aldridge Date: 12-31-18 CDS Name: Stacey Rielly Phone Exercise your independent professional judgment when responding to query. Question asked do not imply a particular answer is desired/expected Clinical Documentation States: "Heart Failure / CHF" documented in progress Clinical Findings Show: Diuretic: Furosemide Echocardiogram Ejection Fraction 40-45% Please Clarify: Acuity [ ] Acute [ x] Chronic [ ] Acute on Chronic Type [ ] Systolic [ ] Diastolic [ ] Systolic & Diastolic (Combined) [ ] Left Heart failure [ ] Other: Etiology [x ] CHF due to Hypertension [ ] Cardiomyopathy [ ] Valvular Heart Disease [ ] Coronary Artery Disease [ ] Unable to determine [ ] Other: Condition Present on Admission: [ x] Yes [ ] No [ ] Clinically Undeterminable Please also document in your Progress Notes and/or Discharge Summary and indicate if the condition was present on admission. KELLY
[2018-12-31 12:00] VITALS: BP 97/67
--- NOTE | 2018-12-31 13:04 | Pulmonology Progress Note ---
Assessment/Plan Problems: (1) Chest pain (2) UTI (urinary tract infection) Assessment/Plan Assessment/Plan 1. Acute coronary syndrome with history of coronary heart disease. Details unknown. 2. Status post TAVR. 3. History of atrial fibrillation and PVC's, currently in sinus rhythm. 4. History of sepsis. 5. Recent GI bleed due to gastric ulcer. 6. Recent pulmonary embolism, on therapeutic Coumadin. 7. Congestive heart failure with reduced ejection fraction. 8. Hyperlipidemia. 9. History of stroke involving the right middle cerebral artery. 10. Aortic athersclerosis 11. PsA UTI Plan: F/U cards recs ---> plan for stress test today Continue AC Zosyn, ID eval CPAP qHS wound care CM recs re: placement Subjective Allergies: Coded Allergies: No Known Allergies (Unverified , 12/28/18) Subjective AFVSS on RA Stress test today Refuses to return to prior SNF No F/C/CP/SOB/N/V/D/C Objective Last 24 Hour Vital Signs Date Time Temp Pulse Resp B/P (MAP) Pulse Ox O2 Delivery O2 Flow Rate FiO2 12/31/18 12:00 98.2 72 20 97/67 (77) 97 12/31/18 09:00 57 114/65 12/31/18 09:00 Room Air 12/31/18 08:00 98.1 57 18 114/65 (81) 95 12/31/18 08:00 64 12/31/18 04:00 62 12/31/18 04:00 98.0 60 18 110/62 (78) 98 12/31/18 00:01 64 20 99 Facial 30 12/31/18 00:00 98.1 59 18 110/59 (76) 97 12/31/18 00:00 62 12/30/18 21:00 55 106/58 12/30/18 21:00 Room Air 12/30/18 20:00 98.5 55 17 106/58 (74) 97 12/30/18 20:00 69 12/30/18 16:00 97.7 59 18 114/53 (73) 98 12/30/18 15:27 62 Intake and Output 12/30/18 12/31/18 19:00 07:00 Intake Total 580 ml 120 ml Output Total 700 ml Balance -120 ml 120 ml Intake Oral 580 ml 120 ml Output Urine Total 700 ml # Voids 3 # Bowel Movements 4 2 General Appearance: WD/WN, no acute distress HEENT: normocephalic, atraumatic, anicteric, mucous membranes moist Respiratory/Chest: chest wall non-tender, lungs clear, normal breath sounds, no respiratory distress, no accessory muscle use Cardiovascular: normal peripheral pulses, normal rate, regular rhythm Abdomen: normal bowel sounds, soft, non tender, no organomegaly, non distended , no mass Extremities: no cyanosis, no clubbing, no edema Laboratory Tests 12/31/18 05:45: Prothrombin Time 16.4H, Prothromb Time International Ratio 1.6H Current Medications Medications (Trade) Dose Ordered Sig/Chloe Route PRN Reason Start Time Stop Time Status Last Admin Dose Admin Carvedilol (Coreg) 6.25 mg EVERY 12 HOURS ORAL 12/29/18 21:00 01/28/19 20:59 12/31/18 09:00 Docusate Sodium (Colace) 100 mg TWICE A DAY ORAL 12/28/18 09:00 01/27/19 08:59 12/31/18 09:32 Ferrous Sulfate (Feosol) 325 mg ACBREAKFAST ORAL 12/28/18 06:30 01/27/19 06:29 12/30/18 06:01 Furosemide (Lasix) 20 mg DAILY ORAL 12/28/18 09:00 01/27/19 08:59 12/31/18 09:32 Lactulose (Cephulac) 20 gm DAILY ORAL 12/28/18 09:00 01/27/19 08:59 12/31/18 09:32 Nitroglycerin (Ntg) 0.4 mg Q5M PRN SL Prn Chest Pain 12/28/18 04:45 01/27/19 04:44 Ondansetron HCl (Zofran) 4 mg Q6H PRN IVP Nausea & Vomiting 12/30/18 13:15 01/29/19 13:14 12/30/18 13:26 Pantoprazole (Protonix) 40 mg DAILY ORAL 12/28/18 09:00 01/27/19 08:59 12/31/18 09:32 Piperacillin Sod/ Tazobactam Sod 3.375 gm/Sodium Chloride 110 ml @ 27.5 mls/hr EVERY 8 HOURS IVPB 12/29/18 22:00 01/03/19 21:59 12/31/18 05:37 Potassium Chloride (K-Dur) 40 meq DAILY ORAL 12/30/18 09:00 01/29/19 08:59 12/31/18 09:32 Regadenoson (Lexiscan) 0.4 mg ONCE IV 12/31/18 06:00 12/31/18 19:00 12/31/18 12:10 Sennosides (Senokot) 8.6 mg DAILY ORAL 12/28/18 09:00 01/27/19 08:59 12/31/18 09:32 Tramadol HCl (Ultram) 50 mg Q4H PRN ORAL Moderate Pain (Pain Scale 4-6) 12/28/18 04:45 01/04/19 04:44 12/29/18 03:33 Warfarin Sodium (Coumadin per pharmacy) 1 ea DAILY PRN MISC . 12/28/18 07:15 01/27/19 07:14 Warfarin Sodium (Coumadin) 2 mg ONCE ORAL 12/31/18 17:00 12/31/18 19:00 Brett Gonsalez MD Dec 31, 2018 13:04
--- NOTE | 2018-12-31 14:51 | Diagnostic Imaging Report ---
Indications: Chest pain and congestive heart failure Technique: Single day single isotope protocol utilized. Initially, resting images obtained using IV administration 10.8 millicuries 99M technetium Myoview. Subsequently, patient underwent lexiscan stress testing. See cardiology report for details. During Lexiscan infusion, IV administration 31.7 mCi 99 M technetium Myoview. SPECT and planar images obtained. SPECT images gated to 8 phases of the cardiac cycle were also obtained, and reformatted into cine images for evaluation of ejection fraction. Comparison: none Findings: Presence or absence of symptoms during infusion is not described in the cardiology report. Per cardiology report, resting EKG demonstrates sinus rhythm with first-degree AV block and QT prolongation. Imaging demonstrates fixed apparent slightly decreased perfusion in the inferior wall and lower apex. No reversible perfusion defects are demonstrated. Calculated post stress ejection fraction 40%. Gated images demonstrate wide appears to be hypokinesis of the inferior and septal abernathy as well as of the apex Impression: Nonischemic clinical response to pharmacologic stress, per cardiology report Nonischemic electrocardiographic response to pharmacologic stress, per cardiology report No evidence of ischemia, at level of stress achieved Apparent fixed decreased perfusion in the inferior wall and lower apex. Suspect that this represents attenuation artifact. However, this could also represent an infarct, particularly in view of evidence of inferior wall hypokinesis on the gated images Calculated post stress ejection fraction 40%
[2018-12-31 16:00] VITALS: BP 113/58
[2018-12-31] MEDS ORDERED: Warfarin Sodium 1mg ORAL SCH (17:00)
--- NOTE | 2018-12-31 17:19 | Consultation ---
History of Present Illness General Date patient seen: Dec 31, 2018 Chief Complaint: Chest Pain Present Illness HPI 68 y/o M with hx of s/p TAVR 12/03/18, CKD, CAD, pHTN, CVA, CHF w/ EF 25-30%, Afib, GIB, PUD w/ H. pylori infection, AZUL on CPAP, obesity, UTI, 1st degree AV block, PE on Coumadin presented to ED on 12/28 with chest pain. Pain lasted 30 minutes, described as sharp, started on R lower chest area and radiated to Left lower chest area ID is consulted for UTI. Denied n/v/d, f/c. Allergies: Coded Allergies: No Known Allergies (Unverified , 12/28/18) Medication History Scheduled Amiodarone Hcl* (Amiodarone Hcl*), 400 MG ORAL EVERY 12 HOURS, (Reported) Ascorbic Acid* (Ascorbic Acid*), 500 MG ORAL EVERY 12 HOURS, (Reported) Aspirin Ec* (Aspirin Ec*), 81 MG ORAL DAILY, (Reported) Atorvastatin Calcium* (Atorvastatin Calcium*), 40 MG ORAL BEDTIME, (Reported) Carvedilol* (Carvedilol*), 3.125 MG ORAL EVERY 12 HOURS, (Reported) Dimethic/Zinc Ox/Vits A,D/Aloe (A And D Diaper Rash Cream), 113 GM TP DAILY, ( Reported) Docusate Sodium* (Docusate Sodium*), 100 MG ORAL TWICE A DAY, (Reported) Ferrous Sulfate (Ferrousul), 325 MG PO DAILY , (Reported) Furosemide* (Lasix*), 20 MG ORAL DAILY, (Reported) Miconazole Nitrate (Dermafungal), 113 GM TP DAILY, (Reported) Multivitamins* (Multivitamins*), 1 TAB ORAL DAILY, (Reported) Nitroglycerin (Nitrostat), 0.4 MG SL ONCE, (Reported) Pantoprazole* (Pantoprazole*), 40 MG ORAL EVERY 12 HOURS, (Reported) Povidone-Iodine (Povidone Iodine), 1 APPLIC TOP DAILY, (Reported) Sennosides (Senna), 17.2 MG PO QHS, (Reported) Warfarin Sod* (Coumadin*), 2.5 MG ORAL DAILY, (Reported) Scheduled PRN Diclofenac Sodium (Voltaren), 100 GM TP Q6HR PRN for JOINT PAIN, (Reported) Lactulose (Lactulose*), 30 ML ORAL EVERY 6 HOURS PRN for CONST IF SENNS INEFFECTIVE, (Reported) Magnesium Citrate (Magnesium Citrate), 1 APPLIC PO DAILY PRN for CONST IF LACTULOSE INEFFECTIVE, (Reported) Tramadol Hcl (Ultram*), 50 MG ORAL Q6HR PRN for For Pain, (Reported) Discontinued Medications Pantoprazole* (Pantoprazole*), 40 MG ORAL DAILY, (Reported) Discontinued Reason: Pt stopped taking med Patient History Healthcare decision maker Resuscitation status Full Code Advanced Directive on File Patient History Narrative Fhx: non contributory Shx: Denies: smoking Fhx: non contributory Review of Systems All Other Systems: negative except mentioned in HPI Physical Exam Physical Exam Narrative GENERAL: The patient is alert and responds appropriately in Amharic. VITAL SIGNS: Stable. The monitoring engineer shows sinus rhythm with PVC's. SKIN: Warm and dry. He is obese. HEENT: The head is normocephalic. CHEST: Clear. CARDIAC: Rhythm is irregular. ABDOMEN: Soft and nontender. EXTREMITIES: No clubbing, cyanosis, or edema. Last 24 Hour Vital Signs Date Time Temp Pulse Resp B/P (MAP) Pulse Ox O2 Delivery O2 Flow Rate FiO2 12/31/18 12:00 69 12/31/18 12:00 98.2 72 20 97/67 (77) 97 12/31/18 09:00 57 114/65 12/31/18 09:00 Room Air 12/31/18 08:00 98.1 57 18 114/65 (81) 95 12/31/18 08:00 64 12/31/18 04:00 62 12/31/18 04:00 98.0 60 18 110/62 (78) 98 12/31/18 00:01 64 20 99 Facial 30 12/31/18 00:00 98.1 59 18 110/59 (76) 97 12/31/18 00:00 62 12/30/18 21:00 55 106/58 12/30/18 21:00 Room Air 12/30/18 20:00 98.5 55 17 106/58 (74) 97 12/30/18 20:00 69 Intake and Output 12/30/18 12/31/18 19:00 07:00 Intake Total 580 ml 120 ml Output Total 700 ml Balance -120 ml 120 ml Intake Oral 580 ml 120 ml Output Urine Total 700 ml # Voids 3 # Bowel Movements 4 2 Laboratory Tests Test 12/31/18 05:45 Prothrombin Time 16.4 SEC (9.30-11.50) H Prothromb Time International Ratio 1.6 (0.9-1.1) H Height (Feet): 5 Height (Inches): 6.00 Weight (Pounds): 205 Medications Current Medications Medications (Trade) Dose Ordered Sig/Chloe Route PRN Reason Start Time Stop Time Status Last Admin Dose Admin Carvedilol (Coreg) 6.25 mg EVERY 12 HOURS ORAL 12/29/18 21:00 01/28/19 20:59 12/31/18 09:00 Docusate Sodium (Colace) 100 mg TWICE A DAY ORAL 12/28/18 09:00 01/27/19 08:59 12/31/18 09:32 Ferrous Sulfate (Feosol) 325 mg ACBREAKFAST ORAL 12/28/18 06:30 01/27/19 06:29 12/30/18 06:01 Furosemide (Lasix) 20 mg DAILY ORAL 12/28/18 09:00 01/27/19 08:59 12/31/18 09:32 Lactulose (Cephulac) 20 gm DAILY ORAL 12/28/18 09:00 01/27/19 08:59 12/31/18 09:32 Nitroglycerin (Ntg) 0.4 mg Q5M PRN SL Prn Chest Pain 12/28/18 04:45 01/27/19 04:44 Ondansetron HCl (Zofran) 4 mg Q6H PRN IVP Nausea & Vomiting 12/30/18 13:15 01/29/19 13:14 12/30/18 13:26 Pantoprazole (Protonix) 40 mg DAILY ORAL 12/28/18 09:00 01/27/19 08:59 12/31/18 09:32 Piperacillin Sod/ Tazobactam Sod 3.375 gm/Sodium Chloride 110 ml @ 27.5 mls/hr EVERY 8 HOURS IVPB 12/29/18 22:00 01/03/19 21:59 12/31/18 14:48 Potassium Chloride (K-Dur) 40 meq DAILY ORAL 12/30/18 09:00 01/29/19 08:59 12/31/18 09:32 Regadenoson (Lexiscan) 0.4 mg ONCE IV 12/31/18 06:00 12/31/18 19:00 12/31/18 12:10 Sennosides (Senokot) 8.6 mg DAILY ORAL 12/28/18 09:00 01/27/19 08:59 12/31/18 09:32 Tramadol HCl (Ultram) 50 mg Q4H PRN ORAL Moderate Pain (Pain Scale 4-6) 12/28/18 04:45 01/04/19 04:44 12/29/18 03:33 Warfarin Sodium (Coumadin per pharmacy) 1 ea DAILY PRN MISC . 12/28/18 07:15 01/27/19 07:14 Warfarin Sodium (Coumadin) 2 mg ONCE ORAL 12/31/18 17:00 12/31/18 19:00 Assessment/Plan Assessment/Plan: Abx: Ceftriaxone x1 12/28 Zosyn 12/29- Assessment: Chest pain - CXR:Borderline cardiomegaly. No acute process Afebrile No leukocytosis Probable UTI (+urinary hesitancy), renal mass- r/o abscess -u/a wbc 2-4, nit neg, leuk +1; ucx >100k PsA (conde S), GNB #2 Renal mass- r/o malignancy -Abd US: 1. 2.7 x 2.4 cm solid masslike lesion in the right lower renal pole. Recommend further evaluation with contrast-enhanced CT or MRI. Gallbladder wall thickening, measuring up to 6.5 mm. Mild pericholecystic fluid. No visible gallstones or sludge. Cannot exclude an acalculous cholecystitis. Spleen is enlarged, with a diameter of 13.8 cm. 1.2 x 0.8 cm simple-appearing cortical cyst in the mid right kidney. Diffusely echogenic liver, suggesting fatty infiltration. s/p TAVR 12/03/18 CKD CAD pHTN CVA CHF w/ EF 25-30% Afib GIB PUD w/ H. pylori infection AZUL on CPAP obesity hx of UTI 1st degree AV block PE on Coumadin Plan: -Continue empiric ZOsyn #3 for now pending ucx -f/u cx -Monitor CBC/CMP, temperatures -CT abd/p w/ to eval renal mass seen in US Thank you for this consultation. Will continue to follow along with you. Discussed with Nelli Keenan M.D. Dec 31, 2018 17:19
[2018-12-31] MEDS ORDERED: Isovue-300 100ml vial INJ PRN (18:15)
--- NOTE | 2018-12-31 19:10 | NUR ---
HAND-OFF: Report given to YASMIN Lamas. Plan of care endorsed.
--- NOTE | 2018-12-31 19:12 | NUR ---
NURSE NOTES: Received patient awake, lying in semi wick's; resting comfortably. A/O x 4. Pascual pain at this time. No signs of acute cardiorespiratory distress noted. Primarily [place] speaking. Checked IV site intact and flushed. No erythema, bleeding or infiltration noted. Bed at lowest position, brakes on, siderails x3. Call light within reach. Comfort care provided. Will continue to monitor.
[2018-12-31 20:00] VITALS: BP 105/54
[2019-01-01] VITALS: BP 95/66
--- NOTE | 2019-01-01 00:07 | NUR ---
RESPIRATORY NOTE: Pt placed on cpap 10 fio2 30%. Pt is resting comfortably. RN aware of pt on cpap. Will cont. to monitor pt.
--- NOTE | 2019-01-01 02:09 | NUR ---
Safety maintained throughout the night. No significant change of condition noted. Will continue to monitor. Addendum: 01/01/19 at 0211 by Morenita Kang RN NURSE NOTES: Safety maintained throughout the night. No significant change of condition noted. Will continue to monitor.
[2019-01-01 04:00] VITALS: BP 107/62
[2019-01-01] MEDS: Piperacillin/Tazobactam 3.375 GM in NS 110 ML IVPB SCH (05:20)
--- NOTE | 2019-01-01 07:00 | NUR ---
NURSE NOTES: Nurse report given by Riley RN. Patient's awake in bed, anxious and wanted to talk to case packer and would like to be walked. IV is running medication, intact, patent and asymptomatic. Ao x 3. Bed at lowest position, break engaged, call light within reach. Denies pain. Will continue to monitor.
--- NOTE | 2019-01-01 07:02 | NUR ---
HAND-OFF: Report given to YASMIN Haro. Addendum: 01/01/19 at 0739 by Morenita Kang RN Plan for care endorsed.
[2019-01-01 07:07] LABS: INR 1.8 (0.9-1.1)
[2019-01-01 08:00] VITALS: BP 117/70
[2019-01-01] MEDS: Sennosides 8.6mg tab ORAL SCH (08:35)
[2019-01-01] MEDS: Carvedilol 6.25mg Tab ORAL SCH ×2 (08:35→21:27)
[2019-01-01] MEDS: Lactulose 20gm/30ml UDC ORAL SCH (08:35)
[2019-01-01] MEDS: Docusate 100mg cap ORAL SCH ×2 (08:35→17:30)
[2019-01-01] MEDS ORDERED: Gentamicin Rx monitoring MISC PRN (10:30)
--- NOTE | 2019-01-01 11:16 | Cardiology Report ---
APPROVED REPORT EKG Measurement Heart [id number] Sinus rhythm with 1st degree AV block with frequent premature ventricular complexes Left axis deviation Nonspecific intraventricular block Abnormal ECG
[2019-01-01 12:00] VITALS: BP 98/69
[2019-01-01] MEDS ORDERED: NS IVPB SCH (12:00)
[2019-01-01] MEDS ORDERED: GENTAMICIN IVPB SCH (12:00)
--- NOTE | 2019-01-01 12:05 | Pulmonology Progress Note ---
Assessment/Plan Problems: (1) Chest pain (2) UTI (urinary tract infection) Assessment/Plan Assessment/Plan 1. Acute coronary syndrome with history of coronary heart disease. Details unknown. 2. Status post TAVR. 3. History of atrial fibrillation and PVC's, currently in sinus rhythm. 4. History of sepsis. 5. Recent GI bleed due to gastric ulcer. 6. Recent pulmonary embolism, on therapeutic Coumadin. 7. Congestive heart failure with reduced ejection fraction. 8. Hyperlipidemia. 9. History of stroke involving the right middle cerebral artery. 10. Aortic athersclerosis 11. PsA UTI 12. Renal mass on US Plan: F/U cards recs Continue AC Zosyn per ID CPAP qHS wound care F/U CT AP CM recs re: placement Subjective Allergies: Coded Allergies: No Known Allergies (Unverified , 12/28/18) Subjective AFVSS on RA Stress test without e/o ischemia Refuses to return to prior SNF No F/C/CP/SOB/N/V/D/C Objective Last 24 Hour Vital Signs Date Time Temp Pulse Resp B/P (MAP) Pulse Ox O2 Delivery O2 Flow Rate FiO2 01/01/19 08:35 64 117/70 01/01/19 08:22 Room Air 01/01/19 08:00 97.0 64 20 117/70 (86) 96 01/01/19 08:00 64 01/01/19 04:00 72 01/01/19 04:00 96.8 58 18 107/62 (77) 95 01/01/19 00:06 71 18 98 Facial 30 01/01/19 00:00 98.0 67 19 95/66 (76) 97 01/01/19 00:00 63 12/31/18 21:04 63 105/54 12/31/18 21:00 Room Air 12/31/18 20:00 70 12/31/18 20:00 98.2 63 18 105/54 (71) 98 12/31/18 16:00 64 12/31/18 16:00 98.3 57 20 113/58 (76) 98 Intake and Output 12/31/18 01/01/19 19:00 07:00 Intake Total 200 ml 155.8 ml Output Total 800 ml 60 ml Balance -600 ml 95.8 ml Intake Oral 200 ml IV Total 155.8 ml Output Urine Total 800 ml 60 ml # Voids 5 3 # Bowel Movements 2 General Appearance: WD/WN, no acute distress, other - ob M HEENT: normocephalic, atraumatic, anicteric, mucous membranes moist Respiratory/Chest: chest wall non-tender, lungs clear, normal breath sounds, no respiratory distress, no accessory muscle use Cardiovascular: normal peripheral pulses, normal rate, regular rhythm Abdomen: normal bowel sounds, soft, non tender, no organomegaly, non distended , no mass Extremities: no cyanosis, no clubbing, no edema Laboratory Tests 01/01/19 05:56: Prothrombin Time 18.9H, Prothromb Time International Ratio 1.8H Current Medications Medications (Trade) Dose Ordered Sig/Chloe Route PRN Reason Start Time Stop Time Status Last Admin Dose Admin Barium Sulfate (Readi-Cat 2) 450 ml NOW PRN ORAL Radiology Procedure 12/31/18 18:15 01/02/19 18:01 Carvedilol (Coreg) 6.25 mg EVERY 12 HOURS ORAL 12/29/18 21:00 01/28/19 20:59 12/31/18 21:04 Docusate Sodium (Colace) 100 mg TWICE A DAY ORAL 12/28/18 09:00 01/27/19 08:59 12/31/18 09:32 Ferrous Sulfate (Feosol) 325 mg ACBREAKFAST ORAL 12/28/18 06:30 01/27/19 06:29 12/30/18 06:01 Furosemide (Lasix) 20 mg DAILY ORAL 12/28/18 09:00 01/27/19 08:59 12/31/18 09:32 Gentamicin Protocol (Gentamicin pharmacy to dose) 1 ea DAILY PRN MISC . 01/01/19 10:30 01/31/19 10:29 Gentamicin Sulfate 380 mg/ Sodium Chloride 119.5 ml @ 119.5 mls/ hr Q24H IVPB 01/01/19 12:00 01/08/19 11:59 Iopamidol (Isovue-300 100ml) 100 ml NOW PRN INJ Radiology Procedure 12/31/18 18:15 01/02/19 18:14 Lactulose (Cephulac) 20 gm DAILY ORAL 12/28/18 09:00 01/27/19 08:59 12/31/18 09:32 Nitroglycerin (Ntg) 0.4 mg Q5M PRN SL Prn Chest Pain 12/28/18 04:45 01/27/19 04:44 Ondansetron HCl (Zofran) 4 mg Q6H PRN IVP Nausea & Vomiting 12/30/18 13:15 01/29/19 13:14 12/30/18 13:26 Pantoprazole (Protonix) 40 mg DAILY ORAL 12/28/18 09:00 01/27/19 08:59 12/31/18 09:32 Potassium Chloride (K-Dur) 40 meq DAILY ORAL 12/30/18 09:00 01/29/19 08:59 12/31/18 09:32 Sennosides (Senokot) 8.6 mg DAILY ORAL 12/28/18 09:00 01/27/19 08:59 12/31/18 09:32 Tramadol HCl (Ultram) 50 mg Q4H PRN ORAL Moderate Pain (Pain Scale 4-6) 12/28/18 04:45 01/04/19 04:44 12/29/18 03:33 Warfarin Sodium (Coumadin per pharmacy) 1 ea DAILY PRN MISC . 12/28/18 07:15 01/27/19 07:14 Warfarin Sodium (Coumadin) 2 mg ONCE ORAL 01/01/19 17:00 01/01/19 19:00 Brett Gonsalez MD Jan 01, 2019 12:05
--- NOTE | 2019-01-01 12:22 | Infectious Diseases Prog Note ---
Assessment/Plan Assessment/Plan Assessment: Chest pain - CXR:Borderline cardiomegaly. No acute process Afebrile No leukocytosis Probable UTI (+urinary hesitancy), renal mass- r/o abscess -u/a wbc 2-4, nit neg, leuk +1; ucx >100k PsA (conde S), MDR K.pna (S Amikacin, Gentamicin) Renal mass- r/o malignancy -Abd US: 1. 2.7 x 2.4 cm solid masslike lesion in the right lower renal pole. Recommend further evaluation with contrast-enhanced CT or MRI. Gallbladder wall thickening, measuring up to 6.5 mm. Mild pericholecystic fluid. No visible gallstones or sludge. Cannot exclude an acalculous cholecystitis. Spleen is enlarged, with a diameter of 13.8 cm. 1.2 x 0.8 cm simple-appearing cortical cyst in the mid right kidney. Diffusely echogenic liver, suggesting fatty infiltration. s/p TAVR 12/03/18 CKD CAD pHTN CVA CHF w/ EF 25-30% Afib GIB PUD w/ H. pylori infection AZUL on CPAP obesity hx of UTI 1st degree AV block PE on Coumadin Plan: -Switch empiric ZOsyn #4 to Gentamicin #1/5 based on UCx results -12/28 SP Ceftriaxone x1 -f/u cx -Monitor CBC/CMP, temperatures -f/u CT abd/p w/ to eval renal mass seen in US Thank you for this consultation. Will continue to follow along with you. Discussed with RN Subjective Allergies: Coded Allergies: No Known Allergies (Unverified , 12/28/18) Objective Vital Signs Last 24 Hour Vital Signs Date Time Temp Pulse Resp B/P (MAP) Pulse Ox O2 Delivery O2 Flow Rate FiO2 01/01/19 08:35 64 117/70 01/01/19 08:22 Room Air 01/01/19 08:00 97.0 64 20 117/70 (86) 96 01/01/19 08:00 64 01/01/19 04:00 72 01/01/19 04:00 96.8 58 18 107/62 (77) 95 01/01/19 00:06 71 18 98 Facial 30 01/01/19 00:00 98.0 67 19 95/66 (76) 97 01/01/19 00:00 63 12/31/18 21:04 63 105/54 12/31/18 21:00 Room Air 12/31/18 20:00 70 12/31/18 20:00 98.2 63 18 105/54 (71) 98 12/31/18 16:00 64 12/31/18 16:00 98.3 57 20 113/58 (76) 98 Height (Feet): 5 Height (Inches): 6.00 Weight (Pounds): 205 Objective GENERAL: The patient is alert and responds appropriately in Luxembourgish. VITAL SIGNS: Stable. The rn cardiac shows sinus rhythm with PVC's. SKIN: Warm and dry. He is obese. HEENT: The head is normocephalic. CHEST: Clear. CARDIAC: Rhythm is irregular. ABDOMEN: Soft and nontender. EXTREMITIES: No clubbing, cyanosis, or edema. Laboratory Tests Test 01/01/19 05:56 Prothrombin Time 18.9 SEC (9.30-11.50) H Prothromb Time International Ratio 1.8 (0.9-1.1) H Current Medications Medications (Trade) Dose Ordered Sig/Chloe Route PRN Reason Start Time Stop Time Status Last Admin Dose Admin Barium Sulfate (Readi-Cat 2) 450 ml NOW PRN ORAL Radiology Procedure 12/31/18 18:15 01/02/19 18:01 Carvedilol (Coreg) 6.25 mg EVERY 12 HOURS ORAL 12/29/18 21:00 01/28/19 20:59 12/31/18 21:04 Docusate Sodium (Colace) 100 mg TWICE A DAY ORAL 12/28/18 09:00 01/27/19 08:59 12/31/18 09:32 Ferrous Sulfate (Feosol) 325 mg ACBREAKFAST ORAL 12/28/18 06:30 01/27/19 06:29 12/30/18 06:01 Furosemide (Lasix) 20 mg DAILY ORAL 12/28/18 09:00 01/27/19 08:59 12/31/18 09:32 Gentamicin Protocol (Gentamicin pharmacy to dose) 1 ea DAILY PRN MISC . 01/01/19 10:30 01/31/19 10:29 Gentamicin Sulfate 380 mg/ Sodium Chloride 119.5 ml @ 119.5 mls/ hr Q24H IVPB 01/01/19 12:00 01/08/19 11:59 Iopamidol (Isovue-300 100ml) 100 ml NOW PRN INJ Radiology Procedure 12/31/18 18:15 01/02/19 18:14 Lactulose (Cephulac) 20 gm DAILY ORAL 12/28/18 09:00 01/27/19 08:59 12/31/18 09:32 Nitroglycerin (Ntg) 0.4 mg Q5M PRN SL Prn Chest Pain 12/28/18 04:45 01/27/19 04:44 Ondansetron HCl (Zofran) 4 mg Q6H PRN IVP Nausea & Vomiting 12/30/18 13:15 01/29/19 13:14 12/30/18 13:26 Pantoprazole (Protonix) 40 mg DAILY ORAL 12/28/18 09:00 01/27/19 08:59 12/31/18 09:32 Potassium Chloride (K-Dur) 40 meq DAILY ORAL 12/30/18 09:00 01/29/19 08:59 12/31/18 09:32 Sennosides (Senokot) 8.6 mg DAILY ORAL 12/28/18 09:00 01/27/19 08:59 12/31/18 09:32 Tramadol HCl (Ultram) 50 mg Q4H PRN ORAL Moderate Pain (Pain Scale 4-6) 12/28/18 04:45 01/04/19 04:44 12/29/18 03:33 Warfarin Sodium (Coumadin per pharmacy) 1 ea DAILY PRN MISC . 12/28/18 07:15 01/27/19 07:14 Warfarin Sodium (Coumadin) 2 mg ONCE ORAL 01/01/19 17:00 01/01/19 19:00 Nelli Jara M.D. Jan 01, 2019 12:22
--- NOTE | 2019-01-01 13:30 | NUR ---
CASE MANAGEMENT:REVIEW 01/01/19 SI: ACS. CHF. UTI RECENT PULMONARY EMBOLI. RENAL MASS ON US 97.0 64 20 117/70 96% ON RA PT+18.9 INR-1.8 IS: COUMADIN 2MG PO X1 IV GENTAMICIN Q24 K-DUR PO QD COREG PO Q12 LASIX PO QD LACTULOSE PO QD PROTONIX PO QD : TELEMETRY STATUS DCP: FROM [facility] PLAN: REGULAR DIET CT ABD/PELVIS PT EVAL
--- NOTE | 2019-01-01 14:59 | Cardiology Progress Note ---
Assessment/Plan Status Narrative H/O A.S. s/p TAVR CMP HTN PVCs/ VT CP - PR ruled out- Non ischemic Elevated LFT - Possible cholecystitis Renal Mass? Etio Assessment/Plan Continue current meds Increase Coreg to 12.5 mg BID. DC Monitor ABx Will sign off and see PRN Subjective Cardiovascular: Reports: no symptoms Respiratory: Reports: no symptoms Gastrointestinal/Abdominal: Reports: no symptoms Genitourinary: Reports: no symptoms Subjective Had Lexiscan stress test done- Non Ischemic Objective Last 24 Hour Vital Signs Date Time Temp Pulse Resp B/P (MAP) Pulse Ox O2 Delivery O2 Flow Rate FiO2 01/01/19 12:00 98.2 65 18 98/69 (79) 95 01/01/19 12:00 65 01/01/19 08:35 64 117/70 01/01/19 08:22 Room Air 01/01/19 08:00 97.0 64 20 117/70 (86) 96 01/01/19 08:00 64 01/01/19 04:00 72 01/01/19 04:00 96.8 58 18 107/62 (77) 95 01/01/19 00:06 71 18 98 Facial 30 01/01/19 00:00 98.0 67 19 95/66 (76) 97 01/01/19 00:00 63 12/31/18 21:04 63 105/54 12/31/18 21:00 Room Air 12/31/18 20:00 70 12/31/18 20:00 98.2 63 18 105/54 (71) 98 12/31/18 16:00 64 12/31/18 16:00 98.3 57 20 113/58 (76) 98 Rhythm: NSR, PVCs, PACs Cardiovascular: normal rate, regular rhythm, no gallop/murmur Respiratory/Chest: lungs clear Abdomen: normal bowel sounds, non tender, soft, no organomegaly, no mass Extremities: non-tender, normal inspection, no calf tenderness, no swelling Intake and Output 12/31/18 01/01/19 19:00 07:00 Intake Total 200 ml 155.8 ml Output Total 800 ml 60 ml Balance -600 ml 95.8 ml Intake Oral 200 ml IV Total 155.8 ml Output Urine Total 800 ml 60 ml # Voids 5 3 # Bowel Movements 2 2D Echo: reviewed Laboratory Tests Test 01/01/19 05:56 Prothrombin Time 18.9 SEC (9.30-11.50) H Prothromb Time International Ratio 1.8 (0.9-1.1) H Objective Abd. CONSTANTIN: IMPRESSION: 1. 2.7 x 2.4 cm solid masslike lesion in the right lower renal pole. Recommend further evaluation with contrast-enhanced CT or MRI. 2. Gallbladder wall thickening, measuring up to 6.5 mm. Mild pericholecystic fluid. No visible gallstones or sludge. Cannot exclude an acalculous cholecystitis. 3. Spleen is enlarged, with a diameter of 13.8 cm. 4. 1.2 x 0.8 cm simple-appearing cortical cyst in the mid right kidney. 5. Diffusely echogenic liver, suggesting fatty infiltration. Ag Diaz MD Jan 01, 2019 14:59
--- NOTE | 2019-01-01 15:52 | Diagnostic Imaging Report ---
Indication: Abdominal pain, renal mass demonstrated on prior sonogram Technique: Patient ingested oral contrast. Precontrast spiral acquisitions obtained through the abdomen and pelvis. IV ministration nonionic contrast. Multiphasic spiral acquisitions obtained through the abdomen and pelvis Multiplanar reconstructions were generated. Total dose length product 3790 mGycm. CTDIvol(s) 26, 12, 121, 17, 18, 18 mGy. Radiation dose was minimized using automated exposure control Comparison: No comparison CT scans. Reference is made to abdominal sonogram dated 12/29/2018 Findings: Both kidneys demonstrate subcentimeter low-attenuation lesions which are too small to characterize. There is some cortical scarring of the left kidney. No renal mass lesion is demonstrated on any of the sequences. No renal or ureteral calculi. No hydronephrosis or hydroureter demonstrated. The renal collecting systems are unremarkable. There is somewhat delayed filling of the ureters, neither of which are opacified at 3 minutes. The bladder is nondistended. The bladder is equivocally thick-walled. The prostate is prominent, heterogeneous, and protrudes into the bladder floor. It measures 5.1 cm transverse diameter. No retroperitoneal, mesenteric, or pelvic mass or adenopathy demonstrated. The liver is unremarkable. There are equivocally small calculi within the gallbladder neck. No biliary ductal dilatation. The pancreas, spleen, adrenals are unremarkable. The appendix is normal. There is colonic diverticulosis. No evidence of diverticulitis. There is suggestion of wall thickening of the distal sigmoid and rectum. There is equivocally some very rectal fat stranding. There is also edema of the presacral fat. There is suggestion of some scarring in the right inguinal region, possibly indicating prior inguinal hernia repair. There is what appears to be a percutaneous aortic valve prosthesis. Included lung bases demonstrate posterior dependent atelectatic changes. The bones demonstrate degenerative spondylosis changes. There is an old healed fracture deformity of the right eighth rib laterally. Impression: No evidence of renal mass lesion. Findings demonstrated on prior sonogram presumably artifactual. Equivocally thick-walled bladder, possibly artifact of under distention, but cystitis possible. Correlate with clinical and laboratory findings Mild prostatomegaly Scarring in the right inguinal region, suggestive of prior inguinal hernia repair Equivocal cholelithiasis Thick-walled distal sigmoid and rectum with slight pericolonic fat stranding, concerning for proctitis/colitis. Correlate with clinical findings Other findings as noted, including old healed right eighth rib fracture deformity, degenerative spondylosis, aortic valve prosthesis, posterior dependent pulmonary atelectatic changes The CT scanner at [facility] is accredited by the [employer] and the scans are performed using protocols designed to limit radiation exposure to as low as reasonably achievable to attain images of sufficient resolution adequate for diagnostic evaluation.
--- NOTE | 2019-01-01 15:56 | NUR ---
P.T Note: P.T evaluation completed and treatment initiated. Please refer to P.T evaluation for current functional status. Pt is alert , O x 4 , pleasant and cooperative. Pt presented pain and swelling of the R hand/wrist pain in the lower back and R posterior thigh and generalized weakness affecting mobility independence and safety. Skilled P.T service is warranted to improve strength, balance , endurance to increase mobility independence and safety. Recommend home P.T at [place].
[2019-01-01 16:00] VITALS: BP 119/64
--- NOTE | 2019-01-01 16:57 | NUR ---
*-* NO INSURANCE INFORMATION IN THE BAR UNABLE TO SEND CLINICALS OR REVIEWS *-*
[2019-01-01] MEDS ORDERED: Warfarin Sodium 1mg ORAL SCH (17:00)
--- NOTE | 2019-01-01 19:00 | NUR ---
HAND-OFF: Report given to Candice RN. Plan of care endorsed.
--- NOTE | 2019-01-01 19:01 | NUR ---
NURSE NOTES: Received patient awake, lying in semi-wick's; resting comfortably. A/O x 4. Primarily Korean speaking. Denies pain at this time. No signs of acute cardiorespiratory distress noted. Checked IV site intact and flushed. No erythema, bleeding or infiltration noted. Bed at lowest position, brakes on, siderails x 3. Call light within reach. Comfort care provided. Will continue to monitor.
[2019-01-01 20:00] VITALS: BP 119/64
--- NOTE | 2019-01-01 20:19 | NUR ---
NURSE NOTES: Patient complains of shortness of breath. 4L of oxygen through nasal cannula applied per patient's request.
[2019-01-02] VITALS (7 sets, daily range): BP systolic 98–126; BP diastolic 52–77
--- NOTE | 2019-01-02 00:38 | NUR ---
NURSE NOTES: Resting throughout the night. No significant change of condition noted. Will continue to monitor.
[2019-01-02 06:21] LABS: INR 1.7 (0.9-1.1)
--- NOTE | 2019-01-02 07:26 | NUR ---
NURSE NOTES: Report received from YASMIN Lamas. Patient AOx3. In 2LNC denies any pain or SOB. R H 20g IV patent, flushed, SL. Cleaned and made Pt. comfortable. Bed on lowest position, side rails upx2, brakes engaged, alarm on. Call light within easy reach.
--- NOTE | 2019-01-02 07:26 | NUR ---
HAND-OFF: Report given to YASMIN James. Plan of care endorsed.
[2019-01-02] MEDS: traMADol 50mg tab ORAL PRN ×2 (07:38→19:56)
[2019-01-02] MEDS: Docusate 100mg cap ORAL SCH ×3 (08:46→17:56)
[2019-01-02] MEDS: Lactulose 20gm/30ml UDC ORAL SCH (08:46)
[2019-01-02] MEDS: Sennosides 8.6mg tab ORAL SCH (08:46)
[2019-01-02] MEDS: Carvedilol 6.25mg Tab ORAL SCH ×2 (08:47→20:10)
[2019-01-02] MEDS ORDERED: Isovue-300 100ml vial INJ PRN (09:45)
[2019-01-02] MEDS ORDERED: Nitroglycerin Subl 0.4mg tab SL PRN (09:50)
--- NOTE | 2019-01-02 10:00 | NUR ---
NURSE NOTES: Report given to William Schmidtn. Pt. in stable condition.
--- NOTE | 2019-01-02 10:00 | NUR ---
TRANSFER TO FLOOR: Patient transferred to med surg, per MD order. Report given to Adalberto La RN. Belongings and medications given to RN.
[2019-01-02] MEDS ORDERED: Gentamicin Rx monitoring MISC PRN (10:30)
--- NOTE | 2019-01-02 10:30 | NUR ---
NURSE NOTES: Pt was transferred from [facility] by hospital bed. Got report from YASMIN James. Room air. AO x4. Stable vital 114/66, ME 64, SpO2 95%, RR 18. Iv on R hand intact and patent. Skin intact. Orientation on new unit given. Pt has no belongings. Bed in the lowest and locked. Call light within reach. Will continue to monitor
--- NOTE | 2019-01-02 11:29 | Pulmonology Progress Note ---
Assessment/Plan Problems: (1) Chest pain (2) UTI (urinary tract infection) Assessment/Plan Assessment/Plan 1. Acute coronary syndrome with history of coronary heart disease. Details unknown. 2. Status post TAVR. 3. History of atrial fibrillation and PVC's, currently in sinus rhythm. 4. History of sepsis. 5. Recent GI bleed due to gastric ulcer. 6. Recent pulmonary embolism, on therapeutic Coumadin. 7. Congestive heart failure with reduced ejection fraction. 8. Hyperlipidemia. 9. History of stroke involving the right middle cerebral artery. 10. Aortic athersclerosis 11. PsA & Klebsiella UTI 12. Renal mass on US not seen on CT 13. Concern for proctitis/colitis on CT Plan: F/U cards recs Continue AC (Coumadin per Rx) Abx per ID (Gent) CPAP qHS wound care GI eval Re: possible colitis/proctitis CM recs re: placement Subjective Allergies: Coded Allergies: No Known Allergies (Unverified , 12/28/18) Subjective AFVSS on RA CT AP without renal mass, + cystitis, possible proctitis/colitis Refuses to return to prior SNF No F/C/CP/SOB/N/V/D/C Objective Last 24 Hour Vital Signs Date Time Temp Pulse Resp B/P (MAP) Pulse Ox O2 Delivery O2 Flow Rate FiO2 01/02/19 09:00 Room Air 01/02/19 08:47 66 115/75 01/02/19 08:13 66 20 96 Room Air 21 01/02/19 08:00 97.1 61 20 115/75 (88) 96 01/02/19 04:00 97.9 61 18 101/64 (76) 98 01/02/19 00:20 69 15 98 Facial 30 01/02/19 00:00 98.6 79 18 98/52 (67) 98 01/01/19 22:15 65 14 98 Facial 30 01/01/19 21:27 74 119/64 01/01/19 21:00 Room Air 01/01/19 20:00 70 01/01/19 20:00 97.8 74 18 119/64 (82) 98 01/01/19 16:00 98.7 67 18 119/64 (82) 92 01/01/19 16:00 74 01/01/19 12:00 98.2 65 18 98/69 (79) 95 01/01/19 12:00 65 Intake and Output 01/01/19 01/02/19 19:00 07:00 Intake Total 300 ml Output Total 60 ml 40 ml Balance 240 ml -40 ml Intake Oral 300 ml Output Urine Total 60 ml 40 ml # Voids 3 2 # Bowel Movements 1 General Appearance: WD/WN, no acute distress HEENT: normocephalic, atraumatic, anicteric, mucous membranes moist Respiratory/Chest: chest wall non-tender, lungs clear, normal breath sounds, no respiratory distress, no accessory muscle use Cardiovascular: normal peripheral pulses, normal rate, regular rhythm Abdomen: normal bowel sounds, soft, non tender, no organomegaly, non distended , no mass Extremities: no cyanosis, no clubbing, no edema Laboratory Tests 01/02/19 00:30: Random Gentamicin Level 4.3 01/02/19 04:00: Prothrombin Time 17.7H, Prothromb Time International Ratio 1.7H Current Medications Medications (Trade) Dose Ordered Sig/Chloe Route PRN Reason Start Time Stop Time Status Last Admin Dose Admin Barium Sulfate (Readi-Cat 2) 450 ml PRN PRN ORAL Radiology Procedure 01/02/19 09:45 01/02/19 18:01 Carvedilol (Coreg) 6.25 mg EVERY 12 HOURS ORAL 01/02/19 21:00 01/28/19 20:59 Docusate Sodium (Colace) 100 mg TWICE A DAY ORAL 01/02/19 18:00 01/27/19 08:59 Ferrous Sulfate (Feosol) 325 mg ACBREAKFAST ORAL 01/03/19 06:30 01/27/19 06:29 Furosemide (Lasix) 20 mg DAILY ORAL 01/03/19 09:00 01/27/19 08:59 Gentamicin Protocol (Gentamicin pharmacy to dose) 1 ea DAILY PRN MISC Per Rx Protocol 01/02/19 10:30 02/01/19 10:29 Gentamicin Sulfate 380 mg/ Sodium Chloride 119.5 ml @ 119.5 mls/ hr Q36H IVPB 01/03/19 00:00 01/10/19 00:00 Iopamidol (Isovue-300 100ml) 100 ml PRN PRN INJ Radiology Procedure 01/02/19 09:45 01/02/19 18:14 Lactulose (Cephulac) 20 gm DAILY ORAL 01/03/19 09:00 01/27/19 08:59 Nitroglycerin (Ntg) 0.4 mg Q5M PRN SL Prn Chest Pain 01/02/19 09:50 01/27/19 04:44 Ondansetron HCl (Zofran) 4 mg Q6H PRN IVP Nausea & Vomiting 01/02/19 10:30 01/29/19 10:29 Pantoprazole (Protonix) 40 mg DAILY ORAL 01/03/19 09:00 01/27/19 08:59 Potassium Chloride (K-Dur) 40 meq DAILY ORAL 01/03/19 09:00 01/29/19 08:59 Sennosides (Senokot) 8.6 mg DAILY ORAL 01/03/19 09:00 01/27/19 08:59 Tramadol HCl (Ultram) 50 mg Q4H PRN ORAL Moderate Pain (Pain Scale 4-6) 01/02/19 11:00 01/04/19 10:59 Warfarin Sodium (Coumadin per pharmacy) 1 ea DAILY PRN MISC . 01/02/19 10:30 02/01/19 10:29 Brett Gonsalez MD Jan 02, 2019 11:29
--- NOTE | 2019-01-02 12:26 | NUR ---
CASE MANAGEMENT:REVIEW 01/02/19 SI: ACS. CHF. PSEUDOMONAS UTI RECENT PULMONARY EMBOLI. RENAL MASS ON US 97.1 61 20 115/75 96% ON RA PT+17.7 INR-1.7 IS: COUMADIN PO DAILY IV GENTAMICIN Q36 K-DUR PO QD COREG PO Q12 LASIX PO QD LACTULOSE PO QD PROTONIX PO QD : TELEMETRY STATUS DCP: FROM [facility] PLAN: REGULAR DIET CT ABD/PELVIS ~ CHOLELITHIASIS
--- NOTE | 2019-01-02 12:39 | NUR ---
DISCHARGE PLANNING DISCHARGE PLAN DISCUSSED WITH DR DEAN RETURN TO SNF IN 1-2 DAYS
--- NOTE | 2019-01-02 15:04 | NUR ---
*-* INSURANCE *-* AVAILABLE CLINICALS HAVE BEEN FAXED TO: [facility] F: [phone] P: [phone]
--- NOTE | 2019-01-02 15:34 | Infectious Diseases Prog Note ---
Assessment/Plan Assessment/Plan Assessment: Chest pain - CXR:Borderline cardiomegaly. No acute process Afebrile No leukocytosis Probable UTI (+urinary hesitancy) -CT abd/p: No evidence of renal mass lesion. Findings demonstrated on prior sonogram presumably artifactual. Equivocally thick-walled bladder, possibly artifact of under distention, but cystitis possible. Correlate with clinical and laboratory findings. Mild prostatomegaly. Scarring in the right inguinal region, suggestive of prior inguinal hernia repair. Equivocal cholelithiasis Thick-walled distal sigmoid and rectum with slight pericolonic fat stranding, concerning for proctitis/colitis. Correlate with clinical findings. Other findings as noted, including old healed right eighth rib fracture deformity, degenerative spondylosis, aortic valve prosthesis, posterior dependent pulmonary atelectatic changes -u/a wbc 2-4, nit neg, leuk +1; ucx >100k PsA (conde S), MDR K.pna (S Amikacin, Gentamicin) -Abd US: 1. 2.7 x 2.4 cm solid masslike lesion in the right lower renal pole. Recommend further evaluation with contrast-enhanced CT or MRI. Gallbladder wall thickening, measuring up to 6.5 mm. Mild pericholecystic fluid. No visible gallstones or sludge. Cannot exclude an acalculous cholecystitis. Spleen is enlarged, with a diameter of 13.8 cm. 1.2 x 0.8 cm simple-appearing cortical cyst in the mid right kidney. Diffusely echogenic liver, suggesting fatty infiltration. s/p TAVR 12/03/18 CKD CAD pHTN CVA CHF w/ EF 25-30% Afib GIB PUD w/ H. pylori infection AZUL on CPAP obesity hx of UTI 1st degree AV block PE on Coumadin Plan: -Cont Gentamicin #2/5 based on UCx results -01/01 SP ZOsyn #4 -12/28 SP Ceftriaxone x1 -f/u cx -Monitor CBC/CMP, temperatures Thank you for this consultation. Will continue to follow along with you. Discussed with RN Subjective Allergies: Coded Allergies: No Known Allergies (Unverified , 12/28/18) Subjective afebrile no leucocytosis Objective Vital Signs Last 24 Hour Vital Signs Date Time Temp Pulse Resp B/P (MAP) Pulse Ox O2 Delivery O2 Flow Rate FiO2 01/02/19 12:00 80.0 64 20 114/66 (82) 95 01/02/19 09:00 Room Air 01/02/19 08:47 66 115/75 01/02/19 08:13 66 20 96 Room Air 21 01/02/19 08:00 97.1 61 20 115/75 (88) 96 01/02/19 04:00 97.9 61 18 101/64 (76) 98 01/02/19 00:20 69 15 98 Facial 30 01/02/19 00:00 98.6 79 18 98/52 (67) 98 01/01/19 22:15 65 14 98 Facial 30 01/01/19 21:27 74 119/64 01/01/19 21:00 Room Air 01/01/19 20:00 70 01/01/19 20:00 97.8 74 18 119/64 (82) 98 01/01/19 16:00 98.7 67 18 119/64 (82) 92 01/01/19 16:00 74 Height (Feet): 5 Height (Inches): 6.00 Weight (Pounds): 202 Objective GENERAL: The patient is alert and responds appropriately in [place]. VITAL SIGNS: Stable. 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 SKIN: Warm and dry. He is obese. HEENT: The head is normocephalic. CHEST: Clear. CARDIAC: Rhythm is irregular. ABDOMEN: Soft and nontender. EXTREMITIES: No clubbing, cyanosis, or edema. Laboratory Tests Test 01/02/19 00:30 01/02/19 04:00 Random Gentamicin Level 4.3 ug/mL Prothrombin Time 17.7 SEC (9.30-11.50) H Prothromb Time International Ratio 1.7 (0.9-1.1) H Current Medications Medications (Trade) Dose Ordered Sig/Chloe Route PRN Reason Start Time Stop Time Status Last Admin Dose Admin Barium Sulfate (Readi-Cat 2) 450 ml PRN PRN ORAL Radiology Procedure 01/02/19 09:45 01/02/19 18:01 Carvedilol (Coreg) 6.25 mg EVERY 12 HOURS ORAL 01/02/19 21:00 01/28/19 20:59 Docusate Sodium (Colace) 100 mg TWICE A DAY ORAL 01/02/19 18:00 01/27/19 08:59 Ferrous Sulfate (Feosol) 325 mg ACBREAKFAST ORAL 01/03/19 06:30 01/27/19 06:29 Furosemide (Lasix) 20 mg DAILY ORAL 01/03/19 09:00 01/27/19 08:59 Gentamicin Protocol (Gentamicin pharmacy to dose) 1 ea DAILY PRN MISC Per Rx Protocol 01/02/19 10:30 02/01/19 10:29 Gentamicin Sulfate 380 mg/ Sodium Chloride 119.5 ml @ 119.5 mls/ hr Q36H IVPB 01/03/19 00:00 01/10/19 00:00 Iopamidol (Isovue-300 100ml) 100 ml PRN PRN INJ Radiology Procedure 01/02/19 09:45 01/02/19 18:14 Lactulose (Cephulac) 20 gm DAILY ORAL 01/03/19 09:00 01/27/19 08:59 Nitroglycerin (Ntg) 0.4 mg Q5M PRN SL Prn Chest Pain 01/02/19 09:50 01/27/19 04:44 Ondansetron HCl (Zofran) 4 mg Q6H PRN IVP Nausea & Vomiting 01/02/19 10:30 01/29/19 10:29 Pantoprazole (Protonix) 40 mg DAILY ORAL 01/03/19 09:00 01/27/19 08:59 Potassium Chloride (K-Dur) 40 meq DAILY ORAL 01/03/19 09:00 01/29/19 08:59 Sennosides (Senokot) 8.6 mg DAILY ORAL 01/03/19 09:00 01/27/19 08:59 Tramadol HCl (Ultram) 50 mg Q4H PRN ORAL Moderate Pain (Pain Scale 4-6) 01/02/19 11:00 01/04/19 10:59 Warfarin Sodium (Coumadin per pharmacy) 1 ea DAILY PRN MISC . 01/02/19 10:30 02/01/19 10:29 Warfarin Sodium (Coumadin) 3 mg COUMADIN ORAL 01/02/19 17:00 01/02/19 18:00 Nelli Jara M.D. Jan 02, 2019 15:34
[2019-01-02] MEDS ORDERED: Warfarin Sodium 3mg ORAL SCH (17:00)
--- NOTE | 2019-01-02 19:37 | NUR ---
HAND-OFF: Report given to YASMIN Goodson.
--- NOTE | 2019-01-02 20:00 | NUR ---
NURSE NOTES: Patient received in bed, aaox4, c/o right knee pain. R leg repositioned and ultram given as ordered. Will continue to monitor.l
[2019-01-02] MEDS ORDERED: HYDROcodone/Acetamin 5/325 tab ORAL SCH (21:27)
--- NOTE | 2019-01-02 21:30 | NUR ---
NURSE NOTES: Patient woke up and c/o pain again on right knee, stating that ultram did not work. Patient was asleep earlier after giving ultram; but woke up with pain again. Notified Dr. leija and received order for norco x1. Given as ordered and will monitor.
--- NOTE | 2019-01-02 22:46 | NUR ---
RESPIRATORY NOTE: Pt placed on CPAP for nightly use. Pt on CPAP 10, 30%. Pt placed on a Facial mask, skin intact, no redness/breakdowns noted. Foam tape applied on pt's nosebridge/cheeks/chin to prevent any mask irritations. Pt alert/awake, follows commands. B/S eduarda. diminished, nonproductive cough. CPAP plugged into red outlet, alarms on & audible. Pt in no apparent distress at this time. Will continue plan of care.
[2019-01-02] MEDS: NS IVPB SCH (23:06)
[2019-01-02] MEDS: GENTAMICIN IVPB SCH (23:06)
[2019-01-03] MEDS ORDERED: GENTAMICIN IVPB SCH ×2
[2019-01-03] MEDS ORDERED: NS IVPB SCH ×2
[2019-01-03 04:29] VITALS: BP 109/67
[2019-01-03] MEDS: traMADol 50mg tab ORAL PRN ×3 (05:43→21:11)
[2019-01-03 06:41] LABS: BASOPHILS % (AUTO) 1.4 % (0.0-2.0); EOSINOPHILS % (AUTO) 2.4 % (0.0-3.0); HEMATOCRIT 28.5 % (42.0-52.0); HEMOGLOBIN 8.7 G/DL (14.2-18.0); LYMPHOCYTES % (AUTO) 22.4 % (20.0-45.0); MEAN CORPUSCULAR VOLUME 85 FL (80-99); MONOCYTES % (AUTO) 11.9 % (1.0-10.0); NEUTROPHILS % (AUTO) 61.9 % (45.0-75.0); PLATELET COUNT 123 K/UL (150-450); RED BLOOD COUNT 3.37 M/UL (4.70-6.10); RED CELL DISTRIBUTION WIDTH 17.2 % (11.6-14.8); WHITE BLOOD COUNT 4.9 K/UL (4.8-10.8)
[2019-01-03 06:45] LABS: INR 1.9 (0.9-1.1)
[2019-01-03 06:46] LABS: ANION GAP 7 mmol/L (5-15); BLOOD UREA NITROGEN 12 mg/dL (7-18); CARBON DIOXIDE 27 MMOL/L (21-32); CHLORIDE 99 MMOL/L (98-107); CREATININE 1.2 MG/DL (0.55-1.30); POTASSIUM 4.4 MMOL/L (3.5-5.1); SODIUM 133 MMOL/L (136-145)
--- NOTE | 2019-01-03 07:35 | NUR ---
HAND-OFF: Report given to Karol HOFFMAN.
--- NOTE | 2019-01-03 07:40 | NUR ---
NURSE NOTES: Patient received in stable condition, resting in bed, Setswana speaking. Breathing unlabored, Cipap machine being removed by respiratory therapist. Denies chest pain or SOB. Urinal by the bedside. IV site on right hand patent and intact, saline locked. Bed locked in lowest position, call light placed within reach. Will continue to monitor.
[2019-01-03 08:00] VITALS: BP 113/66
[2019-01-03] MEDS: Sennosides 8.6mg tab ORAL SCH (09:03)
[2019-01-03] MEDS: Docusate 100mg cap ORAL SCH ×2 (09:03→17:11)
[2019-01-03] MEDS: Lactulose 20gm/30ml UDC ORAL SCH (09:03)
[2019-01-03] MEDS: Carvedilol 6.25mg Tab ORAL SCH ×2 (09:03→21:00)
--- NOTE | 2019-01-03 10:48 | NUR ---
*-* INSURANCE *-* AVAILABLE CLINICALS HAVE BEEN FAXED TO: [facility] F: [phone] P: [phone]
--- NOTE | 2019-01-03 11:59 | NUR ---
CASE MANAGEMENT:REVIEW 01/03/19 SI: ACS. CHF. PSEUDOMONAS UTI RECENT PULMONARY EMBOLI. RENAL MASS ON US 97.1 61 20 115/75 96% ON RA PT+19.6 INR+1.9 IS: COUMADIN 2MG PO QD IV GENTAMICIN Q36 K-DUR PO QD COREG PO Q12 LASIX PO QD LACTULOSE PO QD PROTONIX PO QD : TELEMETRY STATUS DCP: FROM [facility] PLAN: REGULAR DIET DISCHARGE PLANNING ~ PATIENT DOES NOT WANT TO RETURN TO [facility] ~ MESSAGE LEFT FOR [place] AT [facility]
[2019-01-03 12:00] VITALS: BP 111/69
--- NOTE | 2019-01-03 12:03 | NUR ---
DISCHARGE PLANNING PATIENT IS REQUESTING NOT TO RETURN TO [facility] THIS [employer] LEADER LEFT [facility] FOR [facility] MARKET EDITOR, RIOS, REQUESTING A CHANGE IN SNF'S AWAIT A CALL BACK ULTIMATELY IF HMO CANNOT FIND ALTERNATIVE SNF PATIENT WILL HAVE TO RETURN TO [facility]
--- NOTE | 2019-01-03 12:49 | General Progress Note ---
Assessment/Plan Assessment/Plan: GI CONSULT Assessment - questionable distal colon findings on CT, ? due to non distention - Had EGD/Colon at [facility] in November for evaluation of anemia - will ask for results - abnormal LFT, ? fatty liver - anemia Recommendations - get EGD/Colon from [facility] - hold Fe - continue bowel regimen - Repeat CT with rectal contrast Thank you Ulices Huynh Subjective Allergies: Coded Allergies: No Known Allergies (Unverified , 12/28/18) Objective Last 24 Hour Vital Signs Date Time Temp Pulse Resp B/P (MAP) Pulse Ox O2 Delivery O2 Flow Rate FiO2 01/03/19 12:00 97.7 64 17 111/69 (83) 98 01/03/19 09:03 68 109/67 01/03/19 09:00 Room Air 01/03/19 08:00 97.5 63 19 113/66 (82) 99 01/03/19 07:36 68 20 97 Room Air 21 01/03/19 06:13 97.7 01/03/19 05:21 61 14 98 Facial 30 01/03/19 04:29 97.7 60 16 109/67 (81) 99 01/03/19 03:01 63 15 99 Facial 30 01/03/19 01:11 62 15 99 Facial 30 01/02/19 23:09 96.8 61 16 111/77 (88) 99 01/02/19 22:44 65 13 98 Facial 30 01/02/19 22:01 97.9 01/02/19 20:42 Room Air 01/02/19 20:10 57 121/54 01/02/19 19:58 97.9 63 18 121/74 (90) 98 01/02/19 19:37 68 20 97 Room Air 21 01/02/19 16:00 98.4 63 18 126/60 (82) 97 Intake and Output 01/02/19 01/03/19 19:00 07:00 Intake Total 840 ml 319.5 ml Output Total 250 ml 2 ml Balance 590 ml 317.5 ml Intake Oral 240 ml 200 ml IV Total 119.5 ml Other 600 ml Output Urine Total 250 ml 2 ml Laboratory Tests 01/03/19 06:00: White Blood Count 4.9, Red Blood Count 3.37L, Hemoglobin 8.7L, Hematocrit 28.5L , Mean Corpuscular Volume 85, Mean Corpuscular Hemoglobin 25.9L, Mean Corpuscular Hemoglobin Concent 30.7L, Red Cell Distribution Width 17.2H, Platelet Count 123L, Mean Platelet Volume 4.8L, Neutrophils (%) (Auto) 61.9, Lymphocytes (%) (Auto) 22.4, Monocytes (%) (Auto) 11.9H, Eosinophils (%) (Auto) 2.4, Basophils (%) (Auto) 1.4, Prothrombin Time 19.6H, Prothromb Time International Ratio 1.9H, Sodium Level 133L, Potassium Level 4.4, Chloride Level 99, Carbon Dioxide Level 27, Anion Gap 7, Blood Urea Nitrogen 12, Creatinine 1.2, Estimat Glomerular Filtration Rate 59.9, Glucose Level 99, Calcium Level 9.0 Height (Feet): 5 Height (Inches): 6.00 Weight (Pounds): 202 Frankie Huynh MD Jan 03, 2019 12:48
--- NOTE | 2019-01-03 14:38 | Pulmonology Progress Note ---
Assessment/Plan Problems: (1) Chest pain (2) UTI (urinary tract infection) Assessment/Plan Assessment/Plan 1. Acute coronary syndrome with history of coronary heart disease. Details unknown. 2. Status post TAVR. 3. History of atrial fibrillation and PVC's, currently in sinus rhythm. 4. History of sepsis. 5. Recent GI bleed due to gastric ulcer. 6. Recent pulmonary embolism, on therapeutic Coumadin. 7. Congestive heart failure with reduced ejection fraction. 8. Hyperlipidemia. 9. History of stroke involving the right middle cerebral artery. 10. Aortic athersclerosis 11. PsA & Klebsiella UTI 12. Renal mass on US not seen on CT 13. Concern for proctitis/colitis on CT Plan: F/U cards recs Continue AC (Coumadin per Rx) Abx per ID (Gent) CPAP qHS wound care GI recs, awaiting outside EGD/colo report, possible CT with rectal contrast CM recs re: placement Subjective Allergies: Coded Allergies: No Known Allergies (Unverified , 12/28/18) Subjective AFVSS on RA GI eval noted ---> awaiting outside colonoscopy report and possible repeat CT with rectal contrast Refuses to return to prior SNF, CM working to find an accepting facility No F/C/CP/SOB/N/V/D/C Objective Last 24 Hour Vital Signs Date Time Temp Pulse Resp B/P (MAP) Pulse Ox O2 Delivery O2 Flow Rate FiO2 01/03/19 12:00 97.7 64 17 111/69 (83) 98 01/03/19 09:03 68 109/67 01/03/19 09:00 Room Air 01/03/19 08:00 97.5 63 19 113/66 (82) 99 01/03/19 07:36 68 20 97 Room Air 21 01/03/19 06:13 97.7 01/03/19 05:21 61 14 98 Facial 30 01/03/19 04:29 97.7 60 16 109/67 (81) 99 01/03/19 03:01 63 15 99 Facial 30 01/03/19 01:11 62 15 99 Facial 30 01/02/19 23:09 96.8 61 16 111/77 (88) 99 01/02/19 22:44 65 13 98 Facial 30 01/02/19 22:01 97.9 8/21/19 20:42 Room Air 01/02/19 20:10 57 121/54 01/02/19 19:58 97.9 63 18 121/74 (90) 98 01/02/19 19:37 68 20 97 Room Air 21 01/02/19 16:00 98.4 63 18 126/60 (82) 97 Intake and Output 01/02/19 01/03/19 19:00 07:00 Intake Total 840 ml 319.5 ml Output Total 250 ml 2 ml Balance 590 ml 317.5 ml Intake Oral 240 ml 200 ml IV Total 119.5 ml Other 600 ml Output Urine Total 250 ml 2 ml General Appearance: WD/WN, no acute distress HEENT: normocephalic, atraumatic, anicteric, mucous membranes moist Respiratory/Chest: chest wall non-tender, lungs clear, normal breath sounds, no respiratory distress, no accessory muscle use Cardiovascular: normal peripheral pulses, normal rate, regular rhythm Abdomen: normal bowel sounds, soft, non tender, no organomegaly, non distended , no mass Extremities: no cyanosis, no clubbing, no edema Laboratory Tests 01/03/19 06:00: White Blood Count 4.9, Red Blood Count 3.37L, Hemoglobin 8.7L, Hematocrit 28.5L , Mean Corpuscular Volume 85, Mean Corpuscular Hemoglobin 25.9L, Mean Corpuscular Hemoglobin Concent 30.7L, Red Cell Distribution Width 17.2H, Platelet Count 123L, Mean Platelet Volume 4.8L, Neutrophils (%) (Auto) 61.9, Lymphocytes (%) (Auto) 22.4, Monocytes (%) (Auto) 11.9H, Eosinophils (%) (Auto) 2.4, Basophils (%) (Auto) 1.4, Prothrombin Time 19.6H, Prothromb Time International Ratio 1.9H, Sodium Level 133L, Potassium Level 4.4, Chloride Level 99, Carbon Dioxide Level 27, Anion Gap 7, Blood Urea Nitrogen 12, Creatinine 1.2, Estimat Glomerular Filtration Rate 59.9, Glucose Level 99, Calcium Level 9.0 Current Medications Medications (Trade) Dose Ordered Sig/Chloe Route PRN Reason Start Time Stop Time Status Last Admin Dose Admin Carvedilol (Coreg) 6.25 mg EVERY 12 HOURS ORAL 01/02/19 21:00 01/28/19 20:59 01/03/19 09:03 Docusate Sodium (Colace) 100 mg TWICE A DAY ORAL 01/02/19 18:00 01/27/19 08:59 01/03/19 09:03 Ferrous Sulfate (Feosol) 325 mg ACBREAKFAST ORAL 01/03/19 06:30 01/27/19 06:29 01/03/19 05:43 Furosemide (Lasix) 20 mg DAILY ORAL 01/03/19 09:00 01/27/19 08:59 01/03/19 09:04 Gentamicin Protocol (Gentamicin pharmacy to dose) 1 ea DAILY PRN MISC Per Rx Protocol 01/02/19 10:30 02/01/19 10:29 Gentamicin Sulfate 380 mg/ Sodium Chloride 119.5 ml @ 119.5 mls/ hr Q36H IVPB 01/03/19 00:00 01/10/19 00:00 01/02/19 23:06 Lactulose (Cephulac) 20 gm DAILY ORAL 01/03/19 09:00 01/27/19 08:59 01/03/19 09:03 Nitroglycerin (Ntg) 0.4 mg Q5M PRN SL Prn Chest Pain 01/02/19 09:50 01/27/19 04:44 Ondansetron HCl (Zofran) 4 mg Q6H PRN IVP Nausea & Vomiting 01/02/19 10:30 01/29/19 10:29 Pantoprazole (Protonix) 40 mg DAILY ORAL 01/03/19 09:00 01/27/19 08:59 01/03/19 09:04 Potassium Chloride (K-Dur) 40 meq DAILY ORAL 01/03/19 09:00 01/29/19 08:59 01/03/19 09:04 Sennosides (Senokot) 8.6 mg DAILY ORAL 01/03/19 09:00 01/27/19 08:59 01/03/19 09:03 Tramadol HCl (Ultram) 50 mg Q4H PRN ORAL Moderate Pain (Pain Scale 4-6) 01/02/19 11:00 01/04/19 10:59 01/03/19 11:46 Warfarin Sodium (Coumadin per pharmacy) 1 ea DAILY PRN MISC . 01/02/19 10:30 02/01/19 10:29 Warfarin Sodium (Coumadin) 2 mg ONCE ORAL 01/03/19 17:00 01/08/19 19:00 Brett Gonsalez MD Jan 03, 2019 14:38
[2019-01-03 16:00] VITALS: BP 97/57
[2019-01-03] MEDS ORDERED: Warfarin Sodium 1mg ORAL SCH (17:00)
--- NOTE | 2019-01-03 18:11 | Infectious Diseases Prog Note ---
Assessment/Plan Assessment/Plan Assessment: Chest pain - CXR:Borderline cardiomegaly. No acute process Afebrile No leukocytosis Probable UTI (+urinary hesitancy) -CT abd/p: No evidence of renal mass lesion. Findings demonstrated on prior sonogram presumably artifactual. Equivocally thick-walled bladder, possibly artifact of under distention, but cystitis possible. Correlate with clinical and laboratory findings. Mild prostatomegaly. Scarring in the right inguinal region, suggestive of prior inguinal hernia repair. Equivocal cholelithiasis Thick-walled distal sigmoid and rectum with slight pericolonic fat stranding, concerning for proctitis/colitis. Correlate with clinical findings. Other findings as noted, including old healed right eighth rib fracture deformity, degenerative spondylosis, aortic valve prosthesis, posterior dependent pulmonary atelectatic changes -u/a wbc 2-4, nit neg, leuk +1; ucx >100k PsA (conde S), MDR K.pna (S Amikacin, Gentamicin) -Abd US: 1. 2.7 x 2.4 cm solid masslike lesion in the right lower renal pole. Recommend further evaluation with contrast-enhanced CT or MRI. Gallbladder wall thickening, measuring up to 6.5 mm. Mild pericholecystic fluid. No visible gallstones or sludge. Cannot exclude an acalculous cholecystitis. Spleen is enlarged, with a diameter of 13.8 cm. 1.2 x 0.8 cm simple-appearing cortical cyst in the mid right kidney. Diffusely echogenic liver, suggesting fatty infiltration. s/p TAVR 12/03/18 CKD CAD pHTN CVA CHF w/ EF 25-30% Afib GIB PUD w/ H. pylori infection AZUL on CPAP obesity hx of UTI 1st degree AV block PE on Coumadin Plan: -Cont Gentamicin #3/5 based on UCx results -01/01 SP ZOsyn #4 -12/28 SP Ceftriaxone x1 -f/u cx -Monitor CBC/CMP, temperatures Thank you for this consultation. Will continue to follow along with you. Discussed with RN Subjective Allergies: Coded Allergies: No Known Allergies (Unverified , 12/28/18) Subjective afebrile no leucocytosis Objective Vital Signs Last 24 Hour Vital Signs Date Time Temp Pulse Resp B/P (MAP) Pulse Ox O2 Delivery O2 Flow Rate FiO2 01/03/19 16:00 97.9 69 17 97/57 (70) 99 01/03/19 12:00 97.7 64 17 111/69 (83) 98 01/03/19 09:03 68 109/67 01/03/19 09:00 Room Air 01/03/19 08:00 97.5 63 19 113/66 (82) 99 01/03/19 07:36 68 20 97 Room Air 21 01/03/19 06:13 97.7 01/03/19 05:21 61 14 98 Facial 30 01/03/19 04:29 97.7 60 16 109/67 (81) 99 01/03/19 03:01 63 15 99 Facial 30 01/03/19 01:11 62 15 99 Facial 30 01/02/19 23:09 96.8 61 16 111/77 (88) 99 01/02/19 22:44 65 13 98 Facial 30 01/02/19 22:01 97.9 01/02/19 20:42 Room Air 01/02/19 20:10 57 121/54 01/02/19 19:58 97.9 63 18 121/74 (90) 98 01/02/19 19:37 68 20 97 Room Air 21 Height (Feet): 5 Height (Inches): 6.00 Weight (Pounds): 202 Objective GENERAL: The patient is alert and responds appropriately in Danish. VITAL SIGNS: Stable. The nuclear monitoring technician shows sinus rhythm with PVC's. SKIN: Warm and dry. He is obese. HEENT: The head is normocephalic. CHEST: Clear. CARDIAC: Rhythm is irregular. ABDOMEN: Soft and nontender. EXTREMITIES: No clubbing, cyanosis, or edema. Laboratory Tests Test 01/03/19 06:00 White Blood Count 4.9 K/UL (4.8-10.8) Red Blood Count 3.37 M/UL (4.70-6.10) L Hemoglobin 8.7 G/DL (14.2-18.0) L Hematocrit 28.5 % (42.0-52.0) L Mean Corpuscular Volume 85 FL (80-99) Mean Corpuscular Hemoglobin 25.9 PG (27.0-31.0) L Mean Corpuscular Hemoglobin Concent 30.7 G/DL (32.0-36.0) L Red Cell Distribution Width 17.2 % (11.6-14.8) H Platelet Count 123 K/UL (150-450) L Mean Platelet Volume 4.8 FL (6.5-10.1) L Neutrophils (%) (Auto) 61.9 % (45.0-75.0) Lymphocytes (%) (Auto) 22.4 % (20.0-45.0) Monocytes (%) (Auto) 11.9 % (1.0-10.0) H Eosinophils (%) (Auto) 2.4 % (0.0-3.0) Basophils (%) (Auto) 1.4 % (0.0-2.0) Prothrombin Time 19.6 SEC (9.30-11.50) H Prothromb Time International Ratio 1.9 (0.9-1.1) H Sodium Level 133 MMOL/L (136-145) L Potassium Level 4.4 MMOL/L (3.5-5.1) Chloride Level 99 MMOL/L (98-107) Carbon Dioxide Level 27 MMOL/L (21-32) Anion Gap 7 mmol/L (5-15) Blood Urea Nitrogen 12 mg/dL (7-18) Creatinine 1.2 MG/DL (0.55-1.30) Estimat Glomerular Filtration Rate 59.9 mL/min (>60) Glucose Level 99 MG/DL (74-106) Calcium Level 9.0 MG/DL (8.5-10.1) Current Medications Medications (Trade) Dose Ordered Sig/Chloe Route PRN Reason Start Time Stop Time Status Last Admin Dose Admin Carvedilol (Coreg) 6.25 mg EVERY 12 HOURS ORAL 01/02/19 21:00 01/28/19 20:59 01/03/19 09:03 Docusate Sodium (Colace) 100 mg TWICE A DAY ORAL 01/02/19 18:00 01/27/19 08:59 01/03/19 17:11 Ferrous Sulfate (Feosol) 325 mg ACBREAKFAST ORAL 01/03/19 06:30 01/27/19 06:29 01/03/19 05:43 Furosemide (Lasix) 20 mg DAILY ORAL 01/03/19 09:00 01/27/19 08:59 01/03/19 09:04 Gentamicin Protocol (Gentamicin pharmacy to dose) 1 ea DAILY PRN MISC Per Rx Protocol 01/02/19 10:30 02/01/19 10:29 Gentamicin Sulfate 380 mg/ Sodium Chloride 119.5 ml @ 119.5 mls/ hr Q36H IVPB 01/03/19 00:00 01/10/19 00:00 01/02/19 23:06 Lactulose (Cephulac) 20 gm DAILY ORAL 01/03/19 09:00 01/27/19 08:59 01/03/19 09:03 Nitroglycerin (Ntg) 0.4 mg Q5M PRN SL Prn Chest Pain 01/02/19 09:50 01/27/19 04:44 Ondansetron HCl (Zofran) 4 mg Q6H PRN IVP Nausea & Vomiting 01/02/19 10:30 01/29/19 10:29 Pantoprazole (Protonix) 40 mg DAILY ORAL 01/03/19 09:00 01/27/19 08:59 01/03/19 09:04 Potassium Chloride (K-Dur) 40 meq DAILY ORAL 01/03/19 09:00 01/29/19 08:59 01/03/19 09:04 Sennosides (Senokot) 8.6 mg DAILY ORAL 01/03/19 09:00 01/27/19 08:59 01/03/19 09:03 Tramadol HCl (Ultram) 50 mg Q4H PRN ORAL Moderate Pain (Pain Scale 4-6) 01/02/19 11:00 01/04/19 10:59 01/03/19 11:46 Warfarin Sodium (Coumadin per pharmacy) 1 ea DAILY PRN MISC . 01/02/19 10:30 02/01/19 10:29 Warfarin Sodium (Coumadin) 2 mg ONCE ORAL 01/03/19 17:00 01/08/19 19:00 01/03/19 17:12 Nelli Jara M.D. Jan 03, 2019 18:11
--- NOTE | 2019-01-03 19:30 | NUR ---
NURSE NOTES: RECEIVED PATIENT LYING IN BED, AWAKE, ALERT/ORIENTED X3, PRIMARY LANGUAGE/PERSIAN, ABLE TO MAKE SIMPLE NEEDS KNOWN IN SAMMARINESE, PATIENT WITH COMPLAINTS OF PAIN TO BILATERAL LOWER EXTREMITIES, NOTED WITH TEXTURE/COLOR CHANGES, ELEVATED ON PILLOW FOR PRESSURE RELIEF/COMFORT, TOLERATING WELL. NO SIGNS AND SYMPTOMS OF ACUTE CARDIO RESPIRATORY DISTRESS/SHORTNESS OF BREATH, DENIES CHEST PAIN. NO REPORT OF GI DISCOMFORT, NO N/V/D. SIDE RAILS UP X3/BED IN LOWEST POSITION FOR SAFETY. CALL LIGHT WITHIN REACH, CONTINUE WITH CURRENT PLAN OF CARE. NAD.
[2019-01-03 20:00] VITALS: BP 113/71
--- NOTE | 2019-01-03 23:15 | Consultation ---
DATE OF CONSULTATION: 01/03/2019 GASTROENTEROLOGY CONSULTATION REPORT CHIEF COMPLAINT: I was asked to see this patient by Dr. Brett Gonsalez for evaluation of abnormal CT scan. HISTORY OF PRESENT ILLNESS: The patient is a pleasant 68-year-old man from a halfway, who was brought in due to chest pain and other issues. The CT scan of the abdomen and pelvis was done showing thickening of the distal colon. The patient denies any abdominal pain or nausea. He also has had no diarrhea. The patient states he even had an endoscopy and colonoscopy in November of this year. This was done for evaluation of anemia. The exam was done at [facility] and he was not told of any abnormalities and examination. The patient denies any hematochezia. PAST MEDICAL HISTORY: History of hypertension, coronary artery disease, congestive heart failure, ejection fraction of 25% to 30%, cardiomyopathy, atrial fibrillation, rapid ventricular response, pulmonary embolism on anticoagulation, history of aortic stenosis, TAVR, history of stroke, difficulty ambulating, and sleep apnea on BiPAP. FAMILY HISTORY: Noncontributory. SOCIAL HISTORY: The patient is from a halfway and he has no current history of smoking. REVIEW OF SYSTEMS: Otherwise negative. PHYSICAL EXAMINATION: GENERAL: This is a pleasant man, seen in his room. HEENT: Normocephalic and atraumatic. Sclerae anicteric. Oropharynx is clear. NECK: Supple. CHEST: Clear to auscultation. CARDIOVASCULAR: Revealed regular rate. ABDOMEN: Soft with good bowel sounds. There is no organomegaly or tenderness. EXTREMITIES: Revealed no edema. LABORATORY AND DIAGNOSTIC DATA: Laboratory data was noted. CT scan was noted. ASSESSMENT: The patient presents with an abnormal CT scan with well-defined thickening of the distal colon and rectum. This is typically seen with under distention of bowel and usually does not reflect pathology. However, CT scan of the pelvis with rectal contrast to be done to reevaluate the distal colon. In addition, the patient's endoscopy and colonoscopy report can be retrieved from the outside hospital for further evaluation. RECOMMENDATIONS: Per above discussion and per orders written in the chart. Thank you for asking me to participate in the care of this patient. Frankie Huynh M.D. DR: Sheila JOB#: [id number] CC: KELLY
[2019-01-04] VITALS: BP 137/71
[2019-01-04 04:00] VITALS: BP 118/65
[2019-01-04] MEDS: traMADol 50mg tab ORAL PRN (05:57)
--- NOTE | 2019-01-04 06:07 | NUR ---
NURSE NOTES: RESTED WELL, NO SIGNIFICANT CHANGE OF CONDITION NOTED THROUGHOUT THE NIGHT. SAFETY MAINTAINED. NAD.
[2019-01-04 07:04] LABS: INR 2.3 (0.9-1.1)
--- NOTE | 2019-01-04 07:36 | NUR ---
HAND-OFF: Report given to YASMIN SCOTT.
--- NOTE | 2019-01-04 07:49 | NUR ---
NURSE NOTES: Patient received in stable condition, sleeping in bed currently with Cipap on. No signs of distress or pain observed. Bed locked in lowest position, call light placed within reach. Will continue to monitor.
[2019-01-04 08:00] VITALS: BP 110/68
--- NOTE | 2019-01-04 08:30 | Pulmonology Progress Note ---
Assessment/Plan Problems: (1) Chest pain (2) UTI (urinary tract infection) Assessment/Plan Assessment/Plan 1. Acute coronary syndrome with history of coronary heart disease. Details unknown. 2. Status post TAVR. 3. History of atrial fibrillation and PVC's, currently in sinus rhythm. 4. History of sepsis. 5. Recent GI bleed due to gastric ulcer. 6. Recent pulmonary embolism, on therapeutic Coumadin. 7. Congestive heart failure with reduced ejection fraction. 8. Hyperlipidemia. 9. History of stroke involving the right middle cerebral artery. 10. Aortic athersclerosis 11. PsA & Klebsiella UTI 12. Renal mass on US not seen on CT 13. Concern for proctitis/colitis on CT Plan: F/U cards recs Continue AC (Coumadin per Rx) Abx per ID (Gent) CPAP qHS wound care D/W GI colitis likely false + will await repeat CT with rectal contrast CM recs re: placement Subjective Allergies: Coded Allergies: No Known Allergies (Unverified , 12/28/18) Subjective AFVSS on RA D/W GI will F/U repeat CT with rectal contrast Refuses to return to prior SNF, CM working to find an accepting facility No F/C/CP/SOB/N/V/D/C Objective Last 24 Hour Vital Signs Date Time Temp Pulse Resp B/P (MAP) Pulse Ox O2 Delivery O2 Flow Rate FiO2 01/04/19 08:00 98.3 66 16 110/68 (82) 98 01/04/19 06:27 98.8 01/04/19 05:27 72 15 98 Facial 30 01/04/19 04:00 98.8 67 18 118/65 (82) 98 01/04/19 03:11 67 13 98 Facial 30 01/04/19 00:00 98.8 61 18 137/71 (93) 96 01/03/19 23:55 68 13 97 Facial 30 01/03/19 21:00 59 107/61 01/03/19 21:00 Room Air 01/03/19 20:18 62 20 95 Room Air 21 01/03/19 20:00 98.4 66 18 113/71 (85) 95 01/03/19 16:00 97.9 69 17 97/57 (70) 99 01/03/19 12:00 97.7 64 17 111/69 (83) 98 01/03/19 09:03 68 109/67 01/03/19 09:00 Room Air Intake and Output 01/03/19 01/04/19 18:59 06:59 Intake Total 400 ml 240 ml Output Total 500 ml 400 ml Balance -100 ml -160 ml Intake Oral 400 ml 240 ml Output Urine Total 500 ml 400 ml # Voids 7 General Appearance: WD/WN, no acute distress HEENT: normocephalic, atraumatic, anicteric, mucous membranes moist Respiratory/Chest: chest wall non-tender, lungs clear, normal breath sounds, no respiratory distress, no accessory muscle use Cardiovascular: normal peripheral pulses, normal rate, regular rhythm Abdomen: normal bowel sounds, soft, non tender, non distended, no mass Extremities: no cyanosis, no clubbing, no edema Laboratory Tests 01/04/19 05:23: Prothrombin Time 23.8H, Prothromb Time International Ratio 2.3H Current Medications Medications (Trade) Dose Ordered Sig/Chloe Route PRN Reason Start Time Stop Time Status Last Admin Dose Admin Carvedilol (Coreg) 6.25 mg EVERY 12 HOURS ORAL 01/02/19 21:00 01/28/19 20:59 01/03/19 09:03 Docusate Sodium (Colace) 100 mg TWICE A DAY ORAL 01/02/19 18:00 01/27/19 08:59 01/03/19 17:11 Ferrous Sulfate (Feosol) 325 mg ACBREAKFAST ORAL 01/03/19 06:30 01/27/19 06:29 01/04/19 05:57 Furosemide (Lasix) 20 mg DAILY ORAL 01/03/19 09:00 01/27/19 08:59 01/03/19 09:04 Gentamicin Protocol (Gentamicin pharmacy to dose) 1 ea DAILY PRN MISC Per Rx Protocol 01/02/19 10:30 02/01/19 10:29 Gentamicin Sulfate 380 mg/ Sodium Chloride 119.5 ml @ 119.5 mls/ hr Q36H IVPB 01/03/19 00:00 01/10/19 00:00 01/02/19 23:06 Lactulose (Cephulac) 20 gm DAILY ORAL 01/03/19 09:00 01/27/19 08:59 01/03/19 09:03 Nitroglycerin (Ntg) 0.4 mg Q5M PRN SL Prn Chest Pain 8/21/19 09:50 01/27/19 04:44 Ondansetron HCl (Zofran) 4 mg Q6H PRN IVP Nausea & Vomiting 01/02/19 10:30 01/29/19 10:29 Pantoprazole (Protonix) 40 mg DAILY ORAL 01/03/19 09:00 01/27/19 08:59 01/03/19 09:04 Potassium Chloride (K-Dur) 40 meq DAILY ORAL 01/03/19 09:00 01/29/19 08:59 01/03/19 09:04 Sennosides (Senokot) 8.6 mg DAILY ORAL 01/03/19 09:00 01/27/19 08:59 01/03/19 09:03 Tramadol HCl (Ultram) 50 mg Q4H PRN ORAL Moderate Pain (Pain Scale 4-6) 01/02/19 11:00 01/04/19 10:59 01/04/19 05:57 Warfarin Sodium (Coumadin per pharmacy) 1 ea DAILY PRN MISC . 01/02/19 10:30 02/01/19 10:29 Warfarin Sodium (Coumadin) 2 mg ONCE ORAL 01/03/19 17:00 01/08/19 19:00 01/03/19 17:12 Brett Gonsalez MD Jan 04, 2019 08:30
[2019-01-04] MEDS: Carvedilol 6.25mg Tab ORAL SCH ×2 (09:13→21:00)
[2019-01-04] MEDS: Lactulose 20gm/30ml UDC ORAL SCH (09:13)
[2019-01-04] MEDS: Sennosides 8.6mg tab ORAL SCH (09:14)
[2019-01-04] MEDS: Docusate 100mg cap ORAL SCH ×2 (09:14→17:00)
[2019-01-04] MEDS: HYDROcodone/Acetamin 10/325 tab ORAL PRN ×2 (11:53→22:36)
[2019-01-04 12:00] VITALS: BP 97/60
--- NOTE | 2019-01-04 12:07 | NUR ---
RD ASSESSMENT & RECOMMENDATIONS SEE CARE ACTIVITY FOR COMPLETE ASSESSMENT DAILY ESTIMATED NEEDS: Needs based on cardiac, pulmonary 71kg adj 25-30 kcals/kg [id number] total kcals 1-1.5 g protein/kg 71-107 g total protein Fluid per MD, on lasix NUTRITION DIAGNOSIS: Altered nutrition related lab values r/t clinical status as evidenced by low Hgb (8.7), low Na (133), elev AST. CURRENT DIET: Regular PO DIET RECOMMENDATIONS: Cardiac ADDITIONAL RECOMMENDATIONS: 1) Obtain a daily standing weight on lasix 2) Monitor Na (133), need for fluid restriction 3) Coumadin, FDI diet edu provided
--- NOTE | 2019-01-04 12:10 | Infectious Diseases Prog Note ---
Assessment/Plan Assessment/Plan Assessment: Chest pain - CXR:Borderline cardiomegaly. No acute process Afebrile No leukocytosis Probable UTI (+urinary hesitancy) -CT abd/p: No evidence of renal mass lesion. Findings demonstrated on prior sonogram presumably artifactual. Equivocally thick-walled bladder, possibly artifact of under distention, but cystitis possible. Correlate with clinical and laboratory findings. Mild prostatomegaly. Scarring in the right inguinal region, suggestive of prior inguinal hernia repair. Equivocal cholelithiasis Thick-walled distal sigmoid and rectum with slight pericolonic fat stranding, concerning for proctitis/colitis. Correlate with clinical findings. Other findings as noted, including old healed right eighth rib fracture deformity, degenerative spondylosis, aortic valve prosthesis, posterior dependent pulmonary atelectatic changes -u/a wbc 2-4, nit neg, leuk +1; ucx >100k PsA (conde S), MDR K.pna (S Amikacin, Gentamicin) -Abd US: 1. 2.7 x 2.4 cm solid masslike lesion in the right lower renal pole. Recommend further evaluation with contrast-enhanced CT or MRI. Gallbladder wall thickening, measuring up to 6.5 mm. Mild pericholecystic fluid. No visible gallstones or sludge. Cannot exclude an acalculous cholecystitis. Spleen is enlarged, with a diameter of 13.8 cm. 1.2 x 0.8 cm simple-appearing cortical cyst in the mid right kidney. Diffusely echogenic liver, suggesting fatty infiltration. s/p TAVR 12/03/18 CKD CAD pHTN CVA CHF w/ EF 25-30% Afib GIB PUD w/ H. pylori infection AZUL on CPAP obesity hx of UTI 1st degree AV block PE on Coumadin Plan: -Cont Gentamicin #4/5 based on UCx results -01/01 SP ZOsyn #4 -12/28 SP Ceftriaxone x1 -f/u cx -Monitor CBC/CMP, temperatures Thank you for this consultation. Will continue to follow along with you. Discussed with RN Subjective Allergies: Coded Allergies: No Known Allergies (Unverified , 12/28/18) Subjective afebrile no leucocytosis Objective Vital Signs Last 24 Hour Vital Signs Date Time Temp Pulse Resp B/P (MAP) Pulse Ox O2 Delivery O2 Flow Rate FiO2 01/04/19 09:30 60 20 96 Room Air 21 01/04/19 09:13 66 110/68 01/04/19 09:00 Room Air 01/04/19 08:00 98.3 66 16 110/68 (82) 98 01/04/19 06:27 98.8 01/04/19 05:27 72 15 98 Facial 30 01/04/19 04:00 98.8 67 18 118/65 (82) 98 01/04/19 03:11 67 13 98 Facial 30 01/04/19 00:00 98.8 61 18 137/71 (93) 96 01/03/19 23:55 68 13 97 Facial 30 01/03/19 21:00 59 107/61 01/03/19 21:00 Room Air 01/03/19 20:18 62 20 95 Room Air 21 01/03/19 20:00 98.4 66 18 113/71 (85) 95 01/03/19 16:00 97.9 69 17 97/57 (70) 99 Height (Feet): 5 Height (Inches): 6.00 Weight (Pounds): 202 Objective GENERAL: The patient is alert and responds appropriately in Nepali. VITAL SIGNS: Stable. The monitoring and evaluation advisor shows sinus rhythm with PVC's. SKIN: Warm and dry. He is obese. HEENT: The head is normocephalic. CHEST: Clear. CARDIAC: Rhythm is irregular. ABDOMEN: Soft and nontender. EXTREMITIES: No clubbing, cyanosis, or edema. Laboratory Tests Test 01/04/19 05:23 Prothrombin Time 23.8 SEC (9.30-11.50) H Prothromb Time International Ratio 2.3 (0.9-1.1) H Current Medications Medications (Trade) Dose Ordered Sig/Chloe Route PRN Reason Start Time Stop Time Status Last Admin Dose Admin Acetaminophen/ Hydrocodone Bitart ([place] 10/325) 1 tab Q6H PRN ORAL Pain Scale (6-10) 01/04/19 11:45 01/11/19 11:44 01/04/19 11:53 Carvedilol (Coreg) 6.25 mg EVERY 12 HOURS ORAL 01/02/19 21:00 01/28/19 20:59 01/04/19 09:13 Docusate Sodium (Colace) 100 mg TWICE A DAY ORAL 01/02/19 18:00 01/27/19 08:59 01/04/19 09:14 Ferrous Sulfate (Feosol) 325 mg ACBREAKFAST ORAL 01/03/19 06:30 01/27/19 06:29 01/04/19 05:57 Furosemide (Lasix) 20 mg DAILY ORAL 01/03/19 09:00 01/27/19 08:59 01/04/19 09:14 Gentamicin Protocol (Gentamicin pharmacy to dose) 1 ea DAILY PRN MISC Per Rx Protocol 01/02/19 10:30 02/01/19 10:29 Gentamicin Sulfate 380 mg/ Sodium Chloride 119.5 ml @ 119.5 mls/ hr Q36H IVPB 01/03/19 00:00 01/10/19 00:00 01/02/19 23:06 Lactulose (Cephulac) 20 gm DAILY ORAL 01/03/19 09:00 01/27/19 08:59 01/04/19 09:13 Nitroglycerin (Ntg) 0.4 mg Q5M PRN SL Prn Chest Pain 01/02/19 09:50 01/27/19 04:44 Ondansetron HCl (Zofran) 4 mg Q6H PRN IVP Nausea & Vomiting 01/02/19 10:30 01/29/19 10:29 Pantoprazole (Protonix) 40 mg DAILY ORAL 01/03/19 09:00 01/27/19 08:59 01/04/19 09:14 Potassium Chloride (K-Dur) 40 meq DAILY ORAL 01/03/19 09:00 01/29/19 08:59 01/04/19 09:14 Sennosides (Senokot) 8.6 mg DAILY ORAL 01/03/19 09:00 01/27/19 08:59 01/04/19 09:14 Warfarin Sodium (Coumadin per pharmacy) 1 ea DAILY PRN MISC . 01/02/19 10:30 02/01/19 10:29 Warfarin Sodium (Coumadin) 1 mg COUMADIN ORAL 01/04/19 17:00 01/04/19 18:00 Nelli Jara M.D. Jan 04, 2019 12:10
[2019-01-04] MEDS: GENTAMICIN IVPB SCH (12:26)
[2019-01-04] MEDS: NS IVPB SCH (12:26)
--- NOTE | 2019-01-04 14:31 | NUR ---
CASE MANAGEMENT:REVIEW 01/04/19 SI: ACS. CHF. PSEUDOMONAS UTI RECENT PULMONARY EMBOLI. RENAL MASS ON US 97.9 64 18 97/60 96% ON RA IS: IV GENTAMICIN Q36 COUMADIN 1MG PO QD NORCO PO Q6HRS PRN LASIX PO QD LACTULOSE PO QD PROTONIX PO QD K-DUR PO QD COREG PO Q12 : TELEMETRY STATUS DCP: FROM [facility] PLAN: REGULAR DIET CT PELVIS
--- NOTE | 2019-01-04 14:32 | NUR ---
*-* INSURANCE *-* AVAILABLE CLINICALS HAVE BEEN FAXED TO: [facility] F: [phone] P: [phone]
--- NOTE | 2019-01-04 14:34 | Diagnostic Imaging Report ---
Indication: Abdominal pain, evaluation of abnormality seen on earlier CT scan Technique: Patient given water-soluble contrast per rectum. Patient also ingested oral contrast. No IV contrast, per referring physician request. Noncontrast spiral acquisitions obtained through the pelvis. Multiplanar reconstructions generated. Total dose length product 846.77 mGycm. CTDIvol(s) 19.75 mGy. Dose reduction achieved using automated exposure control Comparison: Abdomen pelvis CT scan dated 01/01/2019 Findings: The rectum and sigmoid are well distended with contrast. These do not demonstrate any significant wall thickening. Contrast opacified, from earlier contrast demonstration, also stable are seen within the distal colon and rectum. There is mild infiltration of the presacral fat again noted. Visualized small bowel loops are nondistended with normal wall thickness. The appendix is normal. The bladder is unremarkable. The prostate is slightly prominent. No pelvic mass or adenopathy. The bones demonstrate mild degenerative changes of the right hip. There is suggestion of scarring in the right inguinal region again demonstrated Impression: No evidence of rectal or sigmoid wall thickening to suggest proctitis or colitis; previously described changes may be related to lack of distention or or may have resolved in the interim. There is persistent infiltration of the presacral fat. Significance of this is uncertain, possibly chronic. Previously demonstrated bladder wall thickening is no longer evident Scarring in the right inguinal region, could indicate prior hernia repair. Correlate with surgical history Minimal degenerative changes of the right hip The CT scanner at [facility] is accredited by the [employer] and the scans are performed using protocols designed to limit radiation exposure to as low as reasonably achievable to attain images of sufficient resolution adequate for diagnostic evaluation.
--- NOTE | 2019-01-04 14:44 | NUR ---
DISCHARGE PLANNING DREDGE ENGINEER SPOKE WITH BOTH NIASHLYN RUDD T: [phone] AND BELLA VALLADARES T: [phone] THIS DREDGE ENGINEER SPOKE WITH [facility]ALTH [employer] DREDGE ENGINEER, [facility], YESTERDAY. ONCE THERE IS A DISCHARGE ORDER [facility] WILL TRY TO FIND A DIFFERENT FACILITY. HOWEVER IF THEY ARE UNABLE TO PATIENT WILL HAVE TO RETURN TO [facility] DREDGE ENGINEER REACHED OUT TO [facility] AND REQUESTED PATIENT'S ROOM BE CHANGED IF AND WHEN HE RETURNS. PATIENT WAS VERY UNHAPPY WITH THE NOISE LEVEL IN HIS PREVIOUS ROOM. ALL OF THE ABOVE DISCUSSED WITH BOTH NIASHLYN ONCE DISCHARGE ORDER IS WRITTEN PLEASE CONTACT [facility]..THEY WILL ARRANGE TRANSPORTATION AND GIVE THE HALFWAY IT'S AUTHORIZATION [facility] T: [phone] #1 Addendum: 01/04/19 at 1508 by MALCOLM MAURO LVN LVN TO CONTACT AFTER HOURS DREDGE ENGINEER AT [facility] CALL [phone] OPT#1 AND ASK FOR SHIP SCALER DREDGE ENGINEER
[2019-01-04 15:55] VITALS: BP 95/59
[2019-01-04] MEDS ORDERED: Warfarin Sodium 1mg ORAL SCH (17:00)
--- NOTE | 2019-01-04 19:35 | NUR ---
NURSE NOTES: Patient received in stable condition, alert and oriented x4, sitting up in bed, resting, Kinyarwanda speaking. Breathing unlabored, on room air. At night Cipap machine will be on, fiO2 at 30%. Denies chest pain or SOB at this time. Urinal by the bedside. IV site on left hand 22 gauge, patent and intact, saline locked. Bed locked in lowest position, call light placed within reach. Will continue to monitor. No complaints or requests at this time.
[2019-01-04 20:00] VITALS: BP 112/66
--- NOTE | 2019-01-04 23:37 | General Progress Note ---
Assessment/Plan Assessment/Plan: Assessment - questionable distal colon findings on CT - not seen on pelvic CT with rectal contrast - Had EGD/Colon at [facility] in November for evaluation of anemia - will ask for results - abnormal LFT, ? fatty liver - anemia Recommendations - get EGD/Colon from [facility] - hold Fe - continue bowel regimen Subjective Allergies: Coded Allergies: No Known Allergies (Unverified , 12/28/18) Subjective feels OK no abdominal complaints Objective Last 24 Hour Vital Signs Date Time Temp Pulse Resp B/P (MAP) Pulse Ox O2 Delivery O2 Flow Rate FiO2 01/04/19 22:40 69 15 98 Facial 30 01/04/19 21:05 Room Air 01/04/19 21:00 65 112/60 01/04/19 20:13 65 20 96 Room Air 21 01/04/19 20:00 101.3 68 18 112/66 (81) 95 01/04/19 15:55 98.1 68 16 95/59 (71) 100 01/04/19 12:00 97.9 64 18 97/60 (72) 96 01/04/19 09:30 60 20 96 Room Air 21 01/04/19 09:13 66 110/68 01/04/19 09:00 Room Air 01/04/19 08:00 98.3 66 16 110/68 (82) 98 01/04/19 06:27 98.8 01/04/19 05:27 72 15 98 Facial 30 01/04/19 04:00 98.8 67 18 118/65 (82) 98 01/04/19 03:11 67 13 98 Facial 30 01/04/19 00:00 98.8 61 18 137/71 (93) 96 01/03/19 23:55 68 13 97 Facial 30 Intake and Output 01/03/19 01/04/19 19:00 07:00 Intake Total 400 ml 240 ml Output Total 500 ml 400 ml Balance -100 ml -160 ml Intake Oral 400 ml 240 ml Output Urine Total 500 ml 400 ml # Voids 7 Laboratory Tests 01/04/19 05:23: Prothrombin Time 23.8H, Prothromb Time International Ratio 2.3H Height (Feet): 5 Height (Inches): 6.00 Weight (Pounds): 202 Frankie Huynh MD Jan 04, 2019 23:37
[2019-01-05] VITALS: BP 115/61
[2019-01-05 04:11] VITALS: BP 108/64
--- NOTE | 2019-01-05 07:23 | NUR ---
HAND-OFF: Report given to YASMIN Souza.
[2019-01-05 07:59] LABS: INR 2.6 (0.9-1.1)
[2019-01-05 08:00] VITALS: BP 114/67
[2019-01-05] MEDS: Carvedilol 6.25mg Tab ORAL SCH ×2 (09:06→20:46)
[2019-01-05] MEDS: Docusate 100mg cap ORAL SCH ×2 (09:06→17:12)
[2019-01-05] MEDS: Lactulose 20gm/30ml UDC ORAL SCH (09:06)
[2019-01-05] MEDS: Sennosides 8.6mg tab ORAL SCH (09:06)
[2019-01-05] MEDS: HYDROcodone/Acetamin 10/325 tab ORAL PRN ×2 (10:25→16:34)
[2019-01-05 12:00] VITALS: BP 113/67
--- NOTE | 2019-01-05 14:04 | General Progress Note ---
Assessment/Plan Assessment/Plan: Assessment - Negative pelvic CT with rectal contrast - Had EGD/Colon at [facility] in November for evaluation of anemia - await results - abnormal LFT, ? fatty liver - anemia Recommendations - get EGD/Colon from [facility] - hold Fe - continue bowel regimen Subjective Allergies: Coded Allergies: No Known Allergies (Unverified , 12/28/18) Subjective feels OK no abdominal complaints Objective Last 24 Hour Vital Signs Date Time Temp Pulse Resp B/P (MAP) Pulse Ox O2 Delivery O2 Flow Rate FiO2 01/05/19 12:00 99.4 63 18 113/67 (82) 95 01/05/19 09:45 62 20 96 Room Air 21 01/05/19 09:06 68 114/67 01/05/19 09:00 Room Air 01/05/19 08:00 98.4 68 18 114/67 (83) 97 01/05/19 04:11 98.0 66 21 108/64 (79) 98 01/05/19 03:37 62 13 97 Facial 30 01/05/19 00:58 64 13 98 Facial 30 01/05/19 00:00 99.0 70 19 115/61 (79) 96 01/04/19 22:40 69 15 98 Facial 30 01/04/19 21:05 Room Air 01/04/19 21:00 65 112/60 01/04/19 20:13 65 20 96 Room Air 21 01/04/19 20:00 101.3 68 18 112/66 (81) 95 01/04/19 15:55 98.1 68 16 95/59 (71) 100 Intake and Output 01/04/19 01/05/19 18:59 06:59 Intake Total 1000 ml 1655 ml Output Total 900 ml 750 ml Balance 100 ml 905 ml Intake Oral 1000 ml 1000 ml IV Total 55 ml Other 600 ml Output Urine Total 900 ml 750 ml # Voids 2 # Bowel Movements 1 Laboratory Tests 01/05/19 05:55: Prothrombin Time 26.3H, Prothromb Time International Ratio 2.6H Height (Feet): 5 Height (Inches): 6.00 Weight (Pounds): 202 Frankie Huynh MD Jan 05, 2019 14:04
[2019-01-05 16:00] VITALS: BP 111/68
[2019-01-05] MEDS ORDERED: COUMADIN (16:38)
[2019-01-05] MEDS ORDERED: WARFARIN SODIUM1 MG ORAL (16:40)
[2019-01-05] MEDS ORDERED: Warfarin Sodium 1mg ORAL ONE (17:00)
--- NOTE | 2019-01-05 17:34 | NUR ---
NURSE NOTES: relayed to dr Patel that [facility] snf is accepting pt, per dc to snf, abx per id, then [facility] that [facility] said there is no bed tonight but tomorrow they will have. still awaiting dr Jara to call back re abx upon discharge
--- NOTE | 2019-01-05 17:49 | NUR ---
NURSE NOTES: per dr Jara no need for abx upon discharge
--- NOTE | 2019-01-05 19:35 | NUR ---
NURSE NOTES: Received report from YASMIN Serrano. Patient A&Ox4, Malay speaking. On room air, no signs of distress or labored breathing. IV intact, patent, and saline locked. Bed in lowest position with call light in reach. Will continue with plan of care.
--- NOTE | 2019-01-05 19:40 | NUR ---
HAND-OFF: Report given to YASMIN CALDERON..
[2019-01-05 20:00] VITALS: BP 98/56
--- NOTE | 2019-01-05 20:38 | Pulmonology Progress Note ---
Assessment/Plan Assessment/Plan 1. Acute coronary syndrome with history of coronary heart disease. Details unknown. 2. Status post TAVR. 3. History of atrial fibrillation and PVC's, currently in sinus rhythm. 4. History of sepsis. 5. Recent GI bleed due to gastric ulcer. 6. Recent pulmonary embolism, on therapeutic Coumadin. 7. Congestive heart failure with reduced ejection fraction. 8. Hyperlipidemia. 9. History of stroke involving the right middle cerebral artery. 10. Aortic athersclerosis 11. UTI OFF ABX LABS STABLE BIPAP QHS AND PRN DISTRESS TO SNF IN AM LOGN BED AVAILABLE. Subjective Constitutional: Reports: no symptoms HEENT: Repors: no symptoms Cardiovascular: Reports: no symptoms Gastrointestinal/Abdominal: Reports: no symptoms Genitourinary: Reports: no symptoms Neurologic: Reports: no symptoms Allergies: Coded Allergies: No Known Allergies (Unverified , 12/28/18) Subjective awake on RA no distress not getting oob and wants to get up and walk no pain no vnv or bleeding TO SNF IN AM Objective Last 24 Hour Vital Signs Date Time Temp Pulse Resp B/P (MAP) Pulse Ox O2 Delivery O2 Flow Rate FiO2 01/05/19 19:53 64 20 95 Room Air 21 01/05/19 17:11 99.3 01/05/19 16:00 99.3 60 18 111/68 (82) 98 01/05/19 12:00 99.4 63 18 113/67 (82) 95 01/05/19 09:45 62 20 96 Room Air 21 01/05/19 09:06 68 114/67 01/05/19 09:00 Room Air 01/05/19 08:00 98.4 68 18 114/67 (83) 97 01/05/19 04:11 98.0 66 21 108/64 (79) 98 01/05/19 03:37 62 13 97 Facial 30 01/05/19 00:58 64 13 98 Facial 30 01/05/19 00:00 99.0 70 19 115/61 (79) 96 01/04/19 22:40 69 15 98 Facial 30 01/04/19 21:05 Room Air 01/04/19 21:00 65 112/60 Intake and Output 01/04/19 01/05/19 19:00 07:00 Intake Total 1000 ml 1655 ml Output Total 900 ml 750 ml Balance 100 ml 905 ml Intake Oral 1000 ml 1000 ml IV Total 55 ml Other 600 ml Output Urine Total 900 ml 750 ml # Voids 2 # Bowel Movements 1 General Appearance: WD/WN Respiratory/Chest: lungs clear, normal breath sounds Cardiovascular: normal rate, regular rhythm Abdomen: soft, non tender, no organomegaly Skin: no rash, no ulcers Neurologic/Psychiatric: alert, responsive, normal mood/affect Laboratory Tests 01/05/19 05:55: Prothrombin Time 26.3H, Prothromb Time International Ratio 2.6H Current Medications Medications (Trade) Dose Ordered Sig/Chloe Route PRN Reason Start Time Stop Time Status Last Admin Dose Admin Acetaminophen/ Hydrocodone Bitart ([place] 10/325) 1 tab Q6H PRN ORAL Pain Scale (6-10) 01/04/19 11:45 01/11/19 11:44 01/05/19 16:34 Carvedilol (Coreg) 6.25 mg EVERY 12 HOURS ORAL 01/02/19 21:00 01/28/19 20:59 01/05/19 09:06 Docusate Sodium (Colace) 100 mg TWICE A DAY ORAL 01/02/19 18:00 01/27/19 08:59 01/05/19 17:12 Ferrous Sulfate (Feosol) 325 mg ACBREAKFAST ORAL 01/03/19 06:30 01/27/19 06:29 01/05/19 06:40 Furosemide (Lasix) 20 mg DAILY ORAL 01/03/19 09:00 01/27/19 08:59 01/05/19 09:06 Gentamicin Protocol (Gentamicin pharmacy to dose) 1 ea DAILY PRN MISC Per Rx Protocol 01/02/19 10:30 02/01/19 10:29 Gentamicin Sulfate 380 mg/ Sodium Chloride 119.5 ml @ 119.5 mls/ hr Q36H IVPB 01/03/19 00:00 01/10/19 00:00 01/04/19 12:26 Lactulose (Cephulac) 20 gm DAILY ORAL 01/03/19 09:00 01/27/19 08:59 01/05/19 09:06 Nitroglycerin (Ntg) 0.4 mg Q5M PRN SL Prn Chest Pain 01/02/19 09:50 01/27/19 04:44 Ondansetron HCl (Zofran) 4 mg Q6H PRN IVP Nausea & Vomiting 01/02/19 10:30 01/29/19 10:29 Pantoprazole (Protonix) 40 mg DAILY ORAL 01/03/19 09:00 01/27/19 08:59 01/05/19 09:06 Potassium Chloride (K-Dur) 40 meq DAILY ORAL 01/03/19 09:00 01/29/19 08:59 01/05/19 09:06 Sennosides (Senokot) 8.6 mg DAILY ORAL 01/03/19 09:00 01/27/19 08:59 01/05/19 09:06 Warfarin Sodium (Coumadin per pharmacy) 1 ea DAILY PRN MISC . 01/02/19 10:30 02/01/19 10:29 Caitlyn Patel DO Jan 05, 2019 20:38
--- NOTE | 2019-01-05 22:53 | NUR ---
RESPIRATORY NOTE: Pt placed on CPAP for nightly use. Pt on CPAP 10, 30%. Pt on a Facial mask, skin intact, no redness/breakdowns noted. Pt is alert/awake, follows commands. B/S eduarda. diminished, nonproductive cough. BiPAP plugged into red outlet, alarms on & audible. Pt in no apparent distress at this time. Will continue plan of care.
[2019-01-06] VITALS: BP 111/68
[2019-01-06] MEDS: GENTAMICIN IVPB SCH (00:08)
[2019-01-06] MEDS: NS IVPB SCH (00:08)
[2019-01-06 04:00] VITALS: BP 125/72
--- NOTE | 2019-01-06 07:31 | NUR ---
HAND-OFF: Report given to YASMIN Baldwin.
--- NOTE | 2019-01-06 07:47 | NUR ---
NURSE NOTES: Pt resting in bed. awake, A/O x 4, calm and cooperative. Denies pain, no SOB noted. no bleeding. bed in low position, bed alarm on, call light within reach. fall and iso precaution maintained. will continue to monitor.
[2019-01-06 07:57] LABS: INR 2.5 (0.9-1.1)
[2019-01-06 08:00] VITALS: BP 122/72
[2019-01-06] MEDS: Carvedilol 6.25mg Tab ORAL SCH ×2 (08:51→20:40)
[2019-01-06] MEDS: Docusate 100mg cap ORAL SCH ×2 (08:53→17:28)
[2019-01-06] MEDS: Sennosides 8.6mg tab ORAL SCH (08:54)
[2019-01-06] MEDS: Lactulose 20gm/30ml UDC ORAL SCH (08:54)
[2019-01-06 12:00] VITALS: BP 110/61
--- NOTE | 2019-01-06 12:46 | NUR ---
NURSE NOTES: Received call from Sarai ([facility]), regarding placement, she stated that [facility] [place] has no bed for iso pt. Pt refused to go back to [facility], he wants a SNF near [facility], to be close to his family. notified Sarai, she will try to fine new SNF near [facility]. waiting for call back. Addendum: 01/06/19 at 1251 by Nicolasa Rodríguez RN Sarai from [facility] tel # [phone].
[2019-01-06] MEDS: HYDROcodone/Acetamin 10/325 tab ORAL PRN (14:40)
[2019-01-06 16:00] VITALS: BP 113/80
[2019-01-06] MEDS ORDERED: Tubing IV Secondary IV ONE (16:00)
--- NOTE | 2019-01-06 16:01 | General Progress Note ---
Assessment/Plan Assessment/Plan: Assessment - Negative pelvic CT with rectal contrast - Had EGD/Colon at [facility] in November for evaluation of anemia - await results - abnormal LFT, ? fatty liver - anemia Recommendations - get EGD/Colon from [facility] [[email or web address] - hold Fe - continue bowel regimen Subjective Allergies: Coded Allergies: No Known Allergies (Unverified , 12/28/18) Subjective feels OK no abdominal complaints Objective Last 24 Hour Vital Signs Date Time Temp Pulse Resp B/P (MAP) Pulse Ox O2 Delivery O2 Flow Rate FiO2 01/06/19 12:00 98.6 58 16 110/61 (77) 97 01/06/19 09:00 Room Air 01/06/19 08:51 65 122/72 01/06/19 08:00 97.1 65 20 122/72 (89) 95 01/06/19 07:20 60 16 100 Room Air 21 01/06/19 05:17 62 14 98 Facial 30 01/06/19 04:00 97.5 72 19 125/72 (89) 95 01/06/19 03:34 63 14 98 Facial 30 01/06/19 01:33 64 16 98 Facial 30 01/06/19 00:00 98.2 63 19 111/68 (82) 98 01/05/19 22:50 70 13 97 Facial 30 01/05/19 21:00 Room Air 01/05/19 20:46 65 98/56 01/05/19 20:00 98.9 65 18 98/56 (70) 98 01/05/19 19:53 64 20 95 Room Air 21 01/05/19 17:11 99.3 Intake and Output 01/05/19 01/06/19 18:59 06:59 Intake Total 900 ml 1955 ml Output Total 650 ml Balance 900 ml 1305 ml Intake Oral 1000 ml IV Total 55 ml Other 900 ml 900 ml Output Urine Total 650 ml # Voids 2 # Bowel Movements 1 Laboratory Tests 01/06/19 06:10: Prothrombin Time 25.7H, Prothromb Time International Ratio 2.5H Height (Feet): 5 Height (Inches): 6.00 Weight (Pounds): 202 Frankie Huynh MD Jan 06, 2019 16:01
[2019-01-06] MEDS ORDERED: Warfarin Sodium 1mg ORAL SCH (17:00)
--- NOTE | 2019-01-06 17:33 | Infectious Diseases Prog Note ---
Assessment/Plan Assessment/Plan Assessment: Chest pain - CXR:Borderline cardiomegaly. No acute process Afebrile No leukocytosis Probable UTI (+urinary hesitancy) -CT abd/p: No evidence of renal mass lesion. Findings demonstrated on prior sonogram presumably artifactual. Equivocally thick-walled bladder, possibly artifact of under distention, but cystitis possible. Correlate with clinical and laboratory findings. Mild prostatomegaly. Scarring in the right inguinal region, suggestive of prior inguinal hernia repair. Equivocal cholelithiasis Thick-walled distal sigmoid and rectum with slight pericolonic fat stranding, concerning for proctitis/colitis. Correlate with clinical findings. Other findings as noted, including old healed right eighth rib fracture deformity, degenerative spondylosis, aortic valve prosthesis, posterior dependent pulmonary atelectatic changes -u/a wbc 2-4, nit neg, leuk +1; ucx >100k PsA (conde S), MDR K.pna (S Amikacin, Gentamicin) -Abd US: 1. 2.7 x 2.4 cm solid masslike lesion in the right lower renal pole. Recommend further evaluation with contrast-enhanced CT or MRI. Gallbladder wall thickening, measuring up to 6.5 mm. Mild pericholecystic fluid. No visible gallstones or sludge. Cannot exclude an acalculous cholecystitis. Spleen is enlarged, with a diameter of 13.8 cm. 1.2 x 0.8 cm simple-appearing cortical cyst in the mid right kidney. Diffusely echogenic liver, suggesting fatty infiltration. s/p TAVR 12/03/18 CKD CAD pHTN CVA CHF w/ EF 25-30% Afib GIB PUD w/ H. pylori infection AZUL on CPAP obesity hx of UTI 1st degree AV block PE on Coumadin Plan: -D/c Gentamicin #6/5 and montior off abx -01/01 SP ZOsyn #4 -12/28 SP Ceftriaxone x1 -f/u cx -Monitor CBC/CMP, temperatures Thank you for this consultation. Will continue to follow along with you. Discussed with RN Subjective Allergies: Coded Allergies: No Known Allergies (Unverified , 12/28/18) Subjective afebrile >36hrs no leucocytosis Objective Vital Signs Last 24 Hour Vital Signs Date Time Temp Pulse Resp B/P (MAP) Pulse Ox O2 Delivery O2 Flow Rate FiO2 01/06/19 16:00 98.4 65 19 113/80 (91) 97 01/06/19 15:10 98.6 01/06/19 12:00 98.6 58 16 110/61 (77) 97 01/06/19 09:00 Room Air 01/06/19 08:51 65 122/72 01/06/19 08:00 97.1 65 20 122/72 (89) 95 01/06/19 07:20 60 16 100 Room Air 21 01/06/19 05:17 62 14 98 Facial 30 01/06/19 04:00 97.5 72 19 125/72 (89) 95 01/06/19 03:34 63 14 98 Facial 30 01/06/19 01:33 64 16 98 Facial 30 01/06/19 00:00 98.2 63 19 111/68 (82) 98 01/05/19 22:50 70 13 97 Facial 30 01/05/19 21:00 Room Air 01/05/19 20:46 65 98/56 01/05/19 20:00 98.9 65 18 98/56 (70) 98 01/05/19 19:53 64 20 95 Room Air 21 Height (Feet): 5 Height (Inches): 6.00 Weight (Pounds): 202 Objective GENERAL: The patient is alert and responds appropriately in Danish. VITAL SIGNS: Stable. The biomedical scientist shows sinus rhythm with PVC's. SKIN: Warm and dry. He is obese. HEENT: The head is normocephalic. CHEST: Clear. CARDIAC: Rhythm is irregular. ABDOMEN: Soft and nontender. EXTREMITIES: No clubbing, cyanosis, or edema. Laboratory Tests Test 01/06/19 06:10 Prothrombin Time 25.7 SEC (9.30-11.50) H Prothromb Time International Ratio 2.5 (0.9-1.1) H Current Medications Medications (Trade) Dose Ordered Sig/Chloe Route PRN Reason Start Time Stop Time Status Last Admin Dose Admin Acetaminophen/ Hydrocodone Bitart ([place] 10/325) 1 tab Q6H PRN ORAL Pain Scale (6-10) 01/04/19 11:45 01/11/19 11:44 01/06/19 14:40 Carvedilol (Coreg) 6.25 mg EVERY 12 HOURS ORAL 01/02/19 21:00 01/28/19 20:59 01/06/19 08:51 Docusate Sodium (Colace) 100 mg TWICE A DAY ORAL 01/02/19 18:00 01/27/19 08:59 01/06/19 08:53 Ferrous Sulfate (Feosol) 325 mg ACBREAKFAST ORAL 01/03/19 06:30 01/27/19 06:29 01/06/19 06:38 Furosemide (Lasix) 20 mg DAILY ORAL 01/03/19 09:00 01/27/19 08:59 01/06/19 08:52 Gentamicin Protocol (Gentamicin pharmacy to dose) 1 ea DAILY PRN MISC Per Rx Protocol 01/02/19 10:30 02/01/19 10:29 Gentamicin Sulfate 380 mg/ Sodium Chloride 119.5 ml @ 119.5 mls/ hr Q36H IVPB 01/03/19 00:00 01/10/19 00:00 01/06/19 00:08 Lactulose (Cephulac) 20 gm DAILY ORAL 01/03/19 09:00 01/27/19 08:59 01/06/19 08:54 Nitroglycerin (Ntg) 0.4 mg Q5M PRN SL Prn Chest Pain 01/02/19 09:50 01/27/19 04:44 Ondansetron HCl (Zofran) 4 mg Q6H PRN IVP Nausea & Vomiting 01/02/19 10:30 01/29/19 10:29 Pantoprazole (Protonix) 40 mg DAILY ORAL 01/03/19 09:00 01/27/19 08:59 01/06/19 08:51 Potassium Chloride (K-Dur) 40 meq DAILY ORAL 01/03/19 09:00 01/29/19 08:59 01/06/19 08:53 Sennosides (Senokot) 8.6 mg DAILY ORAL 01/03/19 09:00 01/27/19 08:59 01/06/19 08:54 Warfarin Sodium (Coumadin per pharmacy) 1 ea DAILY PRN MISC . 01/02/19 10:30 02/01/19 10:29 Warfarin Sodium (Coumadin) 1 mg COUMADIN ORAL 01/06/19 17:00 01/11/19 16:59 Nelli Jara M.D. Jan 06, 2019 17:33
--- NOTE | 2019-01-06 18:21 | NUR ---
NURSE NOTES: Spoke with Sarai , no placement found, will try in the morning.
--- NOTE | 2019-01-06 18:30 | NUR ---
NURSE NOTES: RN contacted to Dr. Jara to ask about patient's isolation status and antibiotics. Per Dr. 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
--- NOTE | 2019-01-06 18:54 | Pulmonology Progress Note ---
Assessment/Plan Assessment/Plan 1. Acute coronary syndrome with history of coronary heart disease. Details unknown. 2. Status post TAVR. 3. History of atrial fibrillation and PVC's, currently in sinus rhythm. 4. History of sepsis. 5. Recent GI bleed due to gastric ulcer. 6. Recent pulmonary embolism, on therapeutic Coumadin. 7. Congestive heart failure with reduced ejection fraction. 8. Hyperlipidemia. 9. History of stroke involving the right middle cerebral artery. 10. Aortic athersclerosis 11. UTI OFF ABX LABS STABLE BIPAP QHS AND PRN DISTRESS TO SNF IN AM LOG BED AVAILABLE. Subjective Constitutional: Reports: no symptoms HEENT: Repors: no symptoms Respiratory: Reports: no symptoms Cardiovascular: Reports: no symptoms Allergies: Coded Allergies: No Known Allergies (Unverified , 12/28/18) Subjective awake on RA no distress not getting oob and wants to get up and walk no pain no vnv or bleeding TO SNF IN AM but per HCP no bed available Objective Last 24 Hour Vital Signs Date Time Temp Pulse Resp B/P (MAP) Pulse Ox O2 Delivery O2 Flow Rate FiO2 01/06/19 16:00 98.4 65 19 113/80 (91) 97 01/06/19 15:10 98.6 01/06/19 12:00 98.6 58 16 110/61 (77) 97 01/06/19 09:00 Room Air 01/06/19 08:51 65 122/72 01/06/19 08:00 97.1 65 20 122/72 (89) 95 01/06/19 07:20 60 16 100 Room Air 21 01/06/19 05:17 62 14 98 Facial 30 01/06/19 04:00 97.5 72 19 125/72 (89) 95 01/06/19 03:34 63 14 98 Facial 30 01/06/19 01:33 64 16 98 Facial 30 01/06/19 00:00 98.2 63 19 111/68 (82) 98 01/05/19 22:50 70 13 97 Facial 30 01/05/19 21:00 Room Air 01/05/19 20:46 65 98/56 01/05/19 20:00 98.9 65 18 98/56 (70) 98 01/05/19 19:53 64 20 95 Room Air 21 Intake and Output 01/05/19 01/06/19 18:59 06:59 Intake Total 900 ml 1955 ml Output Total 650 ml Balance 900 ml 1305 ml Intake Oral 1000 ml IV Total 55 ml Other 900 ml 900 ml Output Urine Total 650 ml # Voids 2 # Bowel Movements 1 General Appearance: WD/WN Respiratory/Chest: lungs clear, normal breath sounds Cardiovascular: normal rate, regular rhythm Abdomen: soft, non tender, no organomegaly Neurologic/Psychiatric: abnormal gait, responsive Laboratory Tests 01/06/19 06:10: Prothrombin Time 25.7H, Prothromb Time International Ratio 2.5H Current Medications Medications (Trade) Dose Ordered Sig/Chloe Route PRN Reason Start Time Stop Time Status Last Admin Dose Admin Acetaminophen/ Hydrocodone Bitart ([place] 10/325) 1 tab Q6H PRN ORAL Pain Scale (6-10) 01/04/19 11:45 01/11/19 11:44 01/06/19 14:40 Carvedilol (Coreg) 6.25 mg EVERY 12 HOURS ORAL 01/02/19 21:00 01/28/19 20:59 01/06/19 08:51 Docusate Sodium (Colace) 100 mg TWICE A DAY ORAL 01/02/19 18:00 01/27/19 08:59 01/06/19 17:28 Ferrous Sulfate (Feosol) 325 mg ACBREAKFAST ORAL 01/03/19 06:30 01/27/19 06:29 01/06/19 06:38 Furosemide (Lasix) 20 mg DAILY ORAL 01/03/19 09:00 01/27/19 08:59 01/06/19 08:52 Lactulose (Cephulac) 20 gm DAILY ORAL 01/03/19 09:00 01/27/19 08:59 01/06/19 08:54 Nitroglycerin (Ntg) 0.4 mg Q5M PRN SL Prn Chest Pain 01/02/19 09:50 01/27/19 04:44 Ondansetron HCl (Zofran) 4 mg Q6H PRN IVP Nausea & Vomiting 01/02/19 10:30 01/29/19 10:29 Pantoprazole (Protonix) 40 mg DAILY ORAL 01/03/19 09:00 01/27/19 08:59 01/06/19 08:51 Potassium Chloride (K-Dur) 40 meq DAILY ORAL 01/03/19 09:00 01/29/19 08:59 01/06/19 08:53 Sennosides (Senokot) 8.6 mg DAILY ORAL 01/03/19 09:00 01/27/19 08:59 01/06/19 08:54 Warfarin Sodium (Coumadin per pharmacy) 1 ea DAILY PRN MISC . 01/02/19 10:30 02/01/19 10:29 Warfarin Sodium (Coumadin) 1 mg COUMADIN ORAL 01/06/19 17:00 01/11/19 16:59 01/06/19 17:29 Caitlyn Patel DO Jan 06, 2019 18:54
--- NOTE | 2019-01-06 19:08 | NUR ---
HAND-OFF: Report given to Arnold HOFFMAN.
--- NOTE | 2019-01-06 19:15 | NUR ---
NURSE NOTES: Received report from YASMIN Baldwin. Patient A&Ox4, [place] Rican speaking. On room air, no signs of distress or labored breathing. IV intact, patent, and saline locked. Bed in lowest position with call light in reach. Will continue with plan of care.
--- NOTE | 2019-01-06 19:41 | NUR ---
NURSE NOTES: Left message for Sarai at [facility] (patient's insurance) to inform her that the patient's isolation is colonized and not active as that may accelerate patient's placement process. Charge nurse aware.
[2019-01-06 20:00] VITALS: BP 105/60
--- NOTE | 2019-01-06 20:00 | NUR ---
NURSE NOTES: Called [facility] facility inquiring if they would be able to take the patient since he is no longer active isolation but colonized. Facility informed that they just received an admission today and all beds are full. Charge nurse aware.
[2019-01-07] VITALS (7 sets, daily range): BP systolic 91–118; BP diastolic 59–72
--- NOTE | 2019-01-07 03:57 | NUR ---
HAND-OFF: Report given to YASMIN Hernandez (Rita). Patient in stable condition.
--- NOTE | 2019-01-07 04:00 | NUR ---
NURSE NOTES: Received patient from Danyelle RN, patient is on CPAP machine at this time, stable condition, no acute distress noted or reported. Will continue to monitor for safety and comfort.
--- NOTE | 2019-01-07 06:42 | General Progress Note ---
Assessment/Plan Assessment/Plan: Assessment - Negative pelvic CT with rectal contrast - Had EGD/Colon at [facility] in November for evaluation of anemia - await results - abnormal LFT, ? fatty liver - anemia Recommendations - get EGD/Colon from [facility] - will instruct RN again - continue bowel regimen - monitor CBC - anticoagulation Subjective Allergies: Coded Allergies: No Known Allergies (Unverified , 12/28/18) Subjective feels OK no abdominal complaints no events overnight Objective Last 24 Hour Vital Signs Date Time Temp Pulse Resp B/P (MAP) Pulse Ox O2 Delivery O2 Flow Rate FiO2 01/07/19 05:05 71 19 98 Facial 30 01/07/19 04:00 98.9 68 20 118/69 (85) 01/07/19 02:53 68 17 97 Facial 30 01/07/19 01:57 70 16 98 Facial 30 01/07/19 00:00 99.8 65 20 105/66 (79) 99 01/06/19 23:01 76 13 98 Facial 30 01/06/19 21:00 Room Air 01/06/19 20:40 63 105/60 01/06/19 20:00 99.0 63 19 105/60 (75) 96 01/06/19 19:56 66 18 97 Room Air 21 01/06/19 16:00 98.4 65 19 113/80 (91) 97 01/06/19 15:10 98.6 01/06/19 12:00 98.6 58 16 110/61 (77) 97 01/06/19 09:00 Room Air 01/06/19 08:51 65 122/72 01/06/19 08:00 97.1 65 20 122/72 (89) 95 01/06/19 07:20 60 16 100 Room Air 21 Intake and Output 01/06/19 01/07/19 19:00 07:00 Intake Total 860 ml Output Total 900 ml Balance -40 ml Intake Oral 860 ml Output Urine Total 900 ml Height (Feet): 5 Height (Inches): 6.00 Weight (Pounds): 202 Frankie Huynh MD Jan 07, 2019 06:42
--- NOTE | 2019-01-07 07:00 | NUR ---
HAND-OFF: Report given to Nicolasa HOFFMAN.
[2019-01-07 07:06] LABS: INR 2.1 (0.9-1.1)
--- NOTE | 2019-01-07 07:37 | NUR ---
NURSE NOTES: Pt resting in bed. Denies pain, no SOB noted. Dressing CDI. bed in low position, call light within reach. bed alarm on. fall precaution maintained. will continue to monitor.
[2019-01-07] MEDS: Docusate 100mg cap ORAL SCH ×2 (08:12→17:44)
[2019-01-07] MEDS: Sennosides 8.6mg tab ORAL SCH (08:13)
[2019-01-07] MEDS: Carvedilol 6.25mg Tab ORAL SCH ×2 (08:13→20:49)
[2019-01-07] MEDS: Lactulose 20gm/30ml UDC ORAL SCH (08:14)
--- NOTE | 2019-01-07 09:32 | NUR ---
DISCHARGE PLAN CALLED AND LEFT VM FOR [facility] @ [phone] OPT#1 REGARDING DISCHARGE ORDER [facility] WILL MAKE SNF AND TRANSPORTATION ARRANGEMENTS AWAIT CALL BACK
[2019-01-07] MEDS: HYDROcodone/Acetamin 10/325 tab ORAL PRN ×2 (09:37→22:39)
--- NOTE | 2019-01-07 11:43 | NUR ---
NURSE NOTES: Call [facility] regarding pts EKG/colonoscopy results, according to sales representative health insurance, there are xray, echo, angio, and MRI reports but no EKG/Colonoscopy results, MD aware. requested all the copies from [facility] , waiting for the copies.
--- NOTE | 2019-01-07 12:19 | NUR ---
called [facility] (Klarissa [phone]), regarding Mr Duong SNF placement, left message, waiting for call back.
--- NOTE | 2019-01-07 13:10 | General Progress Note ---
Assessment/Plan Assessment/Plan: 1. Acute coronary syndrome with history of coronary heart disease. Details unknown. 2. Status post TAVR. 3. History of atrial fibrillation and PVC's, currently in sinus rhythm. 4. History of sepsis. 5. Recent GI bleed due to gastric ulcer. 6. Recent pulmonary embolism, on therapeutic Coumadin. 7. Congestive heart failure with reduced ejection fraction. 8. Hyperlipidemia. 9. History of stroke involving the right middle cerebral artery. 10. Aortic athersclerosis 11. PsA & Klebsiella UTI 12. Renal mass on US not seen on CT 13. Concern for proctitis/colitis on CT not confirmed Plan: disc w cardiology GI eval neg cont coumadin CPAP qHS wound care Repeat CT with rectal contrast neg CM recs re: placement Subjective ROS Limited/Unobtainable: Yes Allergies: Coded Allergies: No Known Allergies (Unverified , 12/28/18) Objective Last 24 Hour Vital Signs Date Time Temp Pulse Resp B/P (MAP) Pulse Ox O2 Delivery O2 Flow Rate FiO2 01/07/19 12:00 98.2 57 17 100/59 (73) 97 01/07/19 10:07 98.3 01/07/19 08:57 Room Air 01/07/19 08:13 62 111/63 01/07/19 07:57 98.3 62 19 111/63 (79) 97 01/07/19 05:05 71 19 98 Facial 30 01/07/19 04:00 98.9 68 20 118/69 (85) 01/07/19 02:53 68 17 97 Facial 30 01/07/19 01:57 70 16 98 Facial 30 01/07/19 00:00 99.8 65 20 105/66 (79) 99 01/06/19 23:01 76 13 98 Facial 30 01/06/19 21:00 Room Air 01/06/19 20:40 63 105/60 01/06/19 20:00 99.0 63 19 105/60 (75) 96 01/06/19 19:56 66 18 97 Room Air 21 01/06/19 16:00 98.4 65 19 113/80 (91) 97 Intake and Output 01/06/19 01/07/19 19:00 07:00 Intake Total 860 ml Output Total 900 ml Balance -40 ml Intake Oral 860 ml Output Urine Total 900 ml Laboratory Tests 01/07/19 05:19: Prothrombin Time 21.6H, Prothromb Time International Ratio 2.1H Height (Feet): 5 Height (Inches): 6.00 Weight (Pounds): 202 General Appearance: no apparent distress, obese Neck: supple Cardiovascular: normal rate Respiratory/Chest: lungs clear Abdomen: non tender Zac Aldridge MD Jan 07, 2019 13:10
--- NOTE | 2019-01-07 13:32 | NUR ---
*-* INSURANCE *-* UPDATED CLINICALS HAVE BEEN FAXED TO: [facility] F: [phone] P: [phone]
--- NOTE | 2019-01-07 13:44 | NUR ---
CASE MANAGEMENT:REVIEW 01/07/19 SI: ACS. CHF. PSEUDOMONAS UTI RECENT PULMONARY EMBOLI. RENAL MASS ON US 98.2 57 17 100/59 97% ON RA PT+21.6 INR+2.1 IS: COUMADIN 2MG PO QD NORCO PO Q6HRS PRN LASIX PO QD LACTULOSE PO QD PROTONIX PO QD K-DUR PO QD COREG PO Q12 : TELEMETRY STATUS DCP: FROM [facility]
--- NOTE | 2019-01-07 13:53 | NUR ---
DISCHARGE PLANNING CALLED [facility] @ [phone] GERALD IS COVERING FOR RIOS GAONA [facility] FOR GERALD REQUESTING ASSISTANCE WITH DISCHARGE WAITING FOR RETURN CALL
--- NOTE | 2019-01-07 15:03 | NUR ---
DISCHARGE PLANNING UPDATE RECEIVED CALL FROM GERALD @ [facility] NO AVAILABLE BEDS AT [facility] FOR THIS PATIENT GERALD REQUESTED NOTES STATING COLONIZATION FAXED COLONIZATION ORDER TO GERALD AND SHE WILL WORK ON SECURING A BED FOR PATIENT MENTION HE WOULD LIKE TO BE CLOSE EAST MD
[2019-01-07] MEDS ORDERED: Warfarin Sodium 1mg ORAL ONE (17:00)
--- NOTE | 2019-01-07 19:27 | NUR ---
HAND-OFF: Report given to Miki HOFFMAN.
--- NOTE | 2019-01-07 19:29 | Infectious Diseases Prog Note ---
Assessment/Plan Assessment/Plan Assessment: Chest pain - CXR:Borderline cardiomegaly. No acute process Afebrile No leukocytosis Probable UTI (+urinary hesitancy), sp Rx -CT abd/p: No evidence of renal mass lesion. Findings demonstrated on prior sonogram presumably artifactual. Equivocally thick-walled bladder, possibly artifact of under distention, but cystitis possible. Correlate with clinical and laboratory findings. Mild prostatomegaly. Scarring in the right inguinal region, suggestive of prior inguinal hernia repair. Equivocal cholelithiasis Thick-walled distal sigmoid and rectum with slight pericolonic fat stranding, concerning for proctitis/colitis. Correlate with clinical findings. Other findings as noted, including old healed right eighth rib fracture deformity, degenerative spondylosis, aortic valve prosthesis, posterior dependent pulmonary atelectatic changes -u/a wbc 2-4, nit neg, leuk +1; ucx >100k PsA (conde S), MDR K.pna (S Amikacin, Gentamicin) -Abd US: 1. 2.7 x 2.4 cm solid masslike lesion in the right lower renal pole. Recommend further evaluation with contrast-enhanced CT or MRI. Gallbladder wall thickening, measuring up to 6.5 mm. Mild pericholecystic fluid. No visible gallstones or sludge. Cannot exclude an acalculous cholecystitis. Spleen is enlarged, with a diameter of 13.8 cm. 1.2 x 0.8 cm simple-appearing cortical cyst in the mid right kidney. Diffusely echogenic liver, suggesting fatty infiltration. s/p TAVR 12/03/18 CKD CAD pHTN CVA CHF w/ EF 25-30% Afib GIB PUD w/ H. pylori infection AZUL on CPAP obesity hx of UTI 1st degree AV block PE on Coumadin Plan: -Continue to monitor off abx -01/06 SP Gentamicin #6 -01/01 SP ZOsyn #4 -12/28 SP Ceftriaxone x1 -f/u cx -Monitor CBC/CMP, temperatures Thank you for this consultation. Will continue to follow along with you. Discussed with RN Subjective Allergies: Coded Allergies: No Known Allergies (Unverified , 12/28/18) Subjective afebrile >48hrs no leucocytosis Objective Vital Signs Last 24 Hour Vital Signs Date Time Temp Pulse Resp B/P (MAP) Pulse Ox O2 Delivery O2 Flow Rate FiO2 01/07/19 16:00 98.3 62 17 111/63 (79) 97 01/07/19 12:00 98.2 57 17 100/59 (73) 97 01/07/19 10:07 98.3 01/07/19 08:57 Room Air 01/07/19 08:13 62 111/63 01/07/19 07:57 98.3 62 19 111/63 (79) 97 01/07/19 07:00 68 16 98 Room Air 21 01/07/19 05:05 71 19 98 Facial 30 01/07/19 04:00 98.9 68 20 118/69 (85) 01/07/19 02:53 68 17 97 Facial 30 01/07/19 01:57 70 16 98 Facial 30 01/07/19 00:00 99.8 65 20 105/66 (79) 99 01/06/19 23:01 76 13 98 Facial 30 01/06/19 21:00 Room Air 01/06/19 20:40 63 105/60 01/06/19 20:00 99.0 63 19 105/60 (75) 96 01/06/19 19:56 66 18 97 Room Air 21 Height (Feet): 5 Height (Inches): 6.00 Weight (Pounds): 202 Objective GENERAL: The patient is alert and responds appropriately in Hungarian. VITAL SIGNS: Stable. The inhalation therapy aides teacher shows sinus rhythm with PVC's. SKIN: Warm and dry. He is obese. HEENT: The head is normocephalic. CHEST: Clear. CARDIAC: Rhythm is irregular. ABDOMEN: Soft and nontender. EXTREMITIES: No clubbing, cyanosis, or edema. Laboratory Tests Test 01/07/19 05:19 Prothrombin Time 21.6 SEC (9.30-11.50) H Prothromb Time International Ratio 2.1 (0.9-1.1) H Current Medications Medications (Trade) Dose Ordered Sig/Chloe Route PRN Reason Start Time Stop Time Status Last Admin Dose Admin Acetaminophen/ Hydrocodone Bitart ([place] 10/325) 1 tab Q6H PRN ORAL Pain Scale (6-10) 01/04/19 11:45 01/11/19 11:44 01/07/19 09:37 Carvedilol (Coreg) 6.25 mg EVERY 12 HOURS ORAL 01/02/19 21:00 01/28/19 20:59 01/07/19 08:13 Docusate Sodium (Colace) 100 mg TWICE A DAY ORAL 01/02/19 18:00 01/27/19 08:59 01/07/19 08:12 Ferrous Sulfate (Feosol) 325 mg ACBREAKFAST ORAL 01/03/19 06:30 01/27/19 06:29 01/07/19 06:21 Furosemide (Lasix) 20 mg DAILY ORAL 01/03/19 09:00 01/27/19 08:59 01/07/19 08:13 Lactulose (Cephulac) 20 gm DAILY ORAL 01/03/19 09:00 01/27/19 08:59 01/07/19 08:14 Nitroglycerin (Ntg) 0.4 mg Q5M PRN SL Prn Chest Pain 01/02/19 09:50 01/27/19 04:44 Ondansetron HCl (Zofran) 4 mg Q6H PRN IVP Nausea & Vomiting 01/02/19 10:30 01/29/19 10:29 Pantoprazole (Protonix) 40 mg DAILY ORAL 01/03/19 09:00 01/27/19 08:59 01/07/19 08:13 Potassium Chloride (K-Dur) 40 meq DAILY ORAL 01/03/19 09:00 01/29/19 08:59 01/07/19 08:14 Sennosides (Senokot) 8.6 mg DAILY ORAL 01/03/19 09:00 01/27/19 08:59 01/07/19 08:13 Warfarin Sodium (Coumadin per pharmacy) 1 ea DAILY PRN MISC . 01/02/19 10:30 02/01/19 10:29 Nelli Jara M.D. Jan 07, 2019 19:29
--- NOTE | 2019-01-07 19:56 | NUR ---
NURSE NOTES: Received patient awake,alert,verbal,comfortably resting in bed without complaints.
[2019-01-08 04:00] VITALS: BP 109/63
--- NOTE | 2019-01-08 07:11 | NUR ---
HAND-OFF: Report given to Marita Fang RN.
--- NOTE | 2019-01-08 07:12 | NUR ---
nurse notes received patient in bed, patient sleeping no sign of distress, HL patent , on fall precaution observed, 4 P's in progress call light w/n reach, will continue to monitor patient condition kaushik seaman
--- NOTE | 2019-01-08 08:02 | NUR ---
CASE MANAGEMENT:REVIEW 01/08/19 SI: ACS. CHF. PSEUDOMONAS UTI RECENT PULMONARY EMBOLI. RENAL MASS ON US 97.7 54 16 109/63 95% ON RA IS: COUMADIN 2MG PO QD NORCO PO Q6HRS PRN LASIX PO QD LACTULOSE PO QD PROTONIX PO QD K-DUR PO QD COREG PO Q12 : TELEMETRY STATUS DCP: FROM [facility] PLAN: PATIENT HAS A DISCHARGE ORDER [facility] IS WORKING ON SECURING A SNF BED, PREFERABLY NEAR [facility] SOON BED IS SECURED PATIENT WILL DISCHARGE
[2019-01-08 08:10] VITALS: BP 123/59
[2019-01-08] MEDS: Docusate 100mg cap ORAL SCH ×2 (08:51→17:26)
[2019-01-08] MEDS: Lactulose 20gm/30ml UDC ORAL SCH (08:52)
[2019-01-08] MEDS: Sennosides 8.6mg tab ORAL SCH (08:52)
[2019-01-08] MEDS: Carvedilol 6.25mg Tab ORAL SCH ×2 (08:52→21:00)
[2019-01-08 12:18] VITALS: BP 93/62
--- NOTE | 2019-01-08 12:59 | NUR ---
DISCHARGE PLANNING CALLED [facility] THE DIE TRY OUT WORKER STAMPING ASSIGNED TODAY TO THIS CASE IS DELPHINE....LEFT [facility] REGARDING PLACEMENT WAITING FOR A RETURN CALL T: [phone] OPT#1
--- NOTE | 2019-01-08 13:11 | NUR ---
*-* INSURANCE *-* UPDATED CLINICALS AND REVIEWS HAVE BEEN FAXED TO: [facility] F: [phone] P: [phone]
--- NOTE | 2019-01-08 13:20 | Infectious Diseases Prog Note ---
Assessment/Plan Assessment/Plan Assessment: Chest pain - CXR:Borderline cardiomegaly. No acute process Fever, SP No leukocytosis Probable UTI (+urinary hesitancy), sp Rx -CT abd/p: No evidence of renal mass lesion. Findings demonstrated on prior sonogram presumably artifactual. Equivocally thick-walled bladder, possibly artifact of under distention, but cystitis possible. Correlate with clinical and laboratory findings. Mild prostatomegaly. Scarring in the right inguinal region, suggestive of prior inguinal hernia repair. Equivocal cholelithiasis Thick-walled distal sigmoid and rectum with slight pericolonic fat stranding, concerning for proctitis/colitis. Correlate with clinical findings. Other findings as noted, including old healed right eighth rib fracture deformity, degenerative spondylosis, aortic valve prosthesis, posterior dependent pulmonary atelectatic changes -u/a wbc 2-4, nit neg, leuk +1; ucx >100k PsA (conde S), MDR K.pna (S Amikacin, Gentamicin) -Abd US: 1. 2.7 x 2.4 cm solid masslike lesion in the right lower renal pole. Recommend further evaluation with contrast-enhanced CT or MRI. Gallbladder wall thickening, measuring up to 6.5 mm. Mild pericholecystic fluid. No visible gallstones or sludge. Cannot exclude an acalculous cholecystitis. Spleen is enlarged, with a diameter of 13.8 cm. 1.2 x 0.8 cm simple-appearing cortical cyst in the mid right kidney. Diffusely echogenic liver, suggesting fatty infiltration. s/p TAVR 12/03/18 CKD CAD pHTN CVA CHF w/ EF 25-30% Afib GIB PUD w/ H. pylori infection AZUL on CPAP obesity hx of UTI 1st degree AV block PE on Coumadin Plan: -Continue to monitor off abx -01/06 SP Gentamicin #6 -01/01 SP ZOsyn #4 -12/28 SP Ceftriaxone x1 -f/u cx -Monitor CBC/CMP, temperatures Thank you for this consultation. Will continue to follow along with you. Discussed with RN Subjective Allergies: Coded Allergies: No Known Allergies (Unverified , 12/28/18) Subjective afebrile >72hrs no leucocytosis Objective Vital Signs Last 24 Hour Vital Signs Date Time Temp Pulse Resp B/P (MAP) Pulse Ox O2 Delivery O2 Flow Rate FiO2 01/08/19 12:18 98.3 69 18 93/62 (72) 100 01/08/19 08:52 61 123/59 01/08/19 08:11 Room Air 01/08/19 08:10 98.1 61 17 123/59 (80) 100 01/08/19 08:07 60 16 97 Room Air 21 01/08/19 04:00 97.7 54 16 109/63 (78) 100 01/08/19 03:32 68 14 98 Facial 30 01/08/19 01:21 66 13 99 Facial 30 01/07/19 23:40 97.5 56 16 91/62 (72) 99 01/07/19 23:09 97.3 01/07/19 22:40 60 12 99 Facial 28 Room Air 01/07/19 20:49 62 111/72 01/07/19 20:39 62 15 96 Room Air 21 01/07/19 20:15 Room Air 01/07/19 20:00 97.3 62 15 111/72 (85) 94 01/07/19 16:00 98.3 62 17 111/63 (79) 97 Height (Feet): 5 Height (Inches): 6.00 Weight (Pounds): 202 Objective GENERAL: The patient is alert and responds appropriately in [place]. VITAL SIGNS: Stable. The property assessment monitor shows sinus rhythm with PVC's. SKIN: Warm and dry. He is obese. HEENT: The head is normocephalic. CHEST: Clear. CARDIAC: Rhythm is irregular. ABDOMEN: Soft and nontender. EXTREMITIES: No clubbing, cyanosis, or edema. Laboratory Tests Test 01/08/19 05:20 Prothrombin Time 20.3 SEC (9.30-11.50) H Prothromb Time International Ratio 2.0 (0.9-1.1) H Current Medications Medications (Trade) Dose Ordered Sig/Chloe Route PRN Reason Start Time Stop Time Status Last Admin Dose Admin Acetaminophen/ Hydrocodone Bitart ([place] 10/325) 1 tab Q6H PRN ORAL Pain Scale (6-10) 01/04/19 11:45 01/11/19 11:44 01/07/19 22:39 Carvedilol (Coreg) 6.25 mg EVERY 12 HOURS ORAL 01/02/19 21:00 01/28/19 20:59 01/08/19 08:52 Docusate Sodium (Colace) 100 mg TWICE A DAY ORAL 01/02/19 18:00 01/27/19 08:59 01/08/19 08:51 Ferrous Sulfate (Feosol) 325 mg ACBREAKFAST ORAL 01/03/19 06:30 01/27/19 06:29 01/08/19 06:09 Furosemide (Lasix) 20 mg DAILY ORAL 01/03/19 09:00 01/27/19 08:59 01/08/19 08:52 Lactulose (Cephulac) 20 gm DAILY ORAL 01/03/19 09:00 01/27/19 08:59 01/08/19 08:52 Nitroglycerin (Ntg) 0.4 mg Q5M PRN SL Prn Chest Pain 01/02/19 09:50 01/27/19 04:44 Ondansetron HCl (Zofran) 4 mg Q6H PRN IVP Nausea & Vomiting 01/02/19 10:30 01/29/19 10:29 Pantoprazole (Protonix) 40 mg DAILY ORAL 01/03/19 09:00 01/27/19 08:59 01/08/19 08:52 Potassium Chloride (K-Dur) 40 meq DAILY ORAL 01/03/19 09:00 01/29/19 08:59 01/08/19 08:51 Sennosides (Senokot) 8.6 mg DAILY ORAL 01/03/19 09:00 01/27/19 08:59 01/08/19 08:52 Warfarin Sodium (Coumadin per pharmacy) 1 ea DAILY PRN MISC . 01/02/19 10:30 02/01/19 10:29 Warfarin Sodium (Coumadin) 2 mg ONCE ORAL 01/08/19 17:00 01/08/19 19:00 Nelli Jara M.D. Jan 08, 2019 13:20
--- NOTE | 2019-01-08 13:43 | General Progress Note ---
Assessment/Plan Assessment/Plan: 1. Acute coronary syndrome with history of coronary heart disease. Details unknown. 2. Status post TAVR. 3. History of atrial fibrillation and PVC's, currently in sinus rhythm. 4. History of sepsis. 5. Recent GI bleed due to gastric ulcer. 6. Recent pulmonary embolism, on therapeutic Coumadin. 7. Congestive heart failure with reduced ejection fraction. 8. Hyperlipidemia. 9. History of stroke involving the right middle cerebral artery. 10. Aortic athersclerosis 11. PsA & Klebsiella UTI 12. Renal mass on US not seen on CT 13. Concern for proctitis/colitis on CT not confirmed Plan: cont coumadin - INR 2.0 CPAP qHS wound care d/w CM re: placement ready for dc Subjective ROS Limited/Unobtainable: Yes Allergies: Coded Allergies: No Known Allergies (Unverified , 12/28/18) Objective Last 24 Hour Vital Signs Date Time Temp Pulse Resp B/P (MAP) Pulse Ox O2 Delivery O2 Flow Rate FiO2 01/08/19 12:18 98.3 69 18 93/62 (72) 100 01/08/19 08:52 61 123/59 01/08/19 08:11 Room Air 01/08/19 08:10 98.1 61 17 123/59 (80) 100 01/08/19 08:07 60 16 97 Room Air 21 01/08/19 04:00 97.7 54 16 109/63 (78) 100 01/08/19 03:32 68 14 98 Facial 30 01/08/19 01:21 66 13 99 Facial 30 01/07/19 23:40 97.5 56 16 91/62 (72) 99 01/07/19 23:09 97.3 01/07/19 22:40 60 12 99 Facial 28 Room Air 01/07/19 20:49 62 111/72 01/07/19 20:39 62 15 96 Room Air 21 01/07/19 20:15 Room Air 01/07/19 20:00 97.3 62 15 111/72 (85) 94 01/07/19 16:00 98.3 62 17 111/63 (79) 97 Intake and Output 01/07/19 01/08/19 19:00 07:00 Intake Total 360 ml Output Total 550 ml Balance -190 ml Intake Oral 360 ml Output Urine Total 550 ml # Voids 3 2 # Bowel Movements 1 Laboratory Tests 8/27/19 05:20: Prothrombin Time 20.3H, Prothromb Time International Ratio 2.0H Height (Feet): 5 Height (Inches): 6.00 Weight (Pounds): 202 Zac Aldridge MD Jan 08, 2019 13:43
[2019-01-08 16:08] VITALS: BP 119/70
[2019-01-08] MEDS ORDERED: Warfarin Sodium 1mg ORAL SCH (17:00)
[2019-01-08] MEDS: HYDROcodone/Acetamin 10/325 tab ORAL PRN (17:33)
--- NOTE | 2019-01-08 17:47 | General Progress Note ---
Assessment/Plan Assessment/Plan: Assessment - Negative pelvic CT with rectal contrast - Had EGD/Colon at [facility] in November for evaluation of anemia - await results - abnormal LFT, ? fatty liver - anemia Recommendations - get EGD/Colon from [facility] - will instruct RN again - continue bowel regimen - monitor CBC - anticoagulation Subjective Allergies: Coded Allergies: No Known Allergies (Unverified , 12/28/18) Subjective feels OK no abdominal complaints no events overnight advised staffing analyst could not locate a recent colonoscopy at [facility] patient said he will d/w his family Objective Last 24 Hour Vital Signs Date Time Temp Pulse Resp B/P (MAP) Pulse Ox O2 Delivery O2 Flow Rate FiO2 01/08/19 16:08 98.5 62 18 119/70 (86) 100 01/08/19 12:18 98.3 69 18 93/62 (72) 100 01/08/19 08:52 61 123/59 01/08/19 08:11 Room Air 01/08/19 08:10 98.1 61 17 123/59 (80) 100 01/08/19 08:07 60 16 97 Room Air 21 01/08/19 04:00 97.7 54 16 109/63 (78) 100 01/08/19 03:32 68 14 98 Facial 30 01/08/19 01:21 66 13 99 Facial 30 01/07/19 23:40 97.5 56 16 91/62 (72) 99 01/07/19 23:09 97.3 01/07/19 22:40 60 12 99 Facial 28 Room Air 01/07/19 20:49 62 111/72 01/07/19 20:39 62 15 96 Room Air 21 01/07/19 20:15 Room Air 01/07/19 20:00 97.3 62 15 111/72 (85) 94 Intake and Output 01/07/19 01/08/19 19:00 07:00 Intake Total 360 ml Output Total 550 ml Balance -190 ml Intake Oral 360 ml Output Urine Total 550 ml # Voids 3 2 # Bowel Movements 1 Laboratory Tests 01/08/19 05:20: Prothrombin Time 20.3H, Prothromb Time International Ratio 2.0H Height (Feet): 5 Height (Inches): 6.00 Weight (Pounds): 202 Frankie Huynh MD Jan 08, 2019 17:47
--- NOTE | 2019-01-08 19:03 | NUR ---
HAND-OFF: Report given to YASMIN TOBAR accordingly YASMIN Jorgensen
--- NOTE | 2019-01-08 19:31 | NUR ---
NURSE NOTES: Received patient awake,alert,verbal,comfortably resting in bed without complaints.
[2019-01-08 20:00] VITALS: BP 97/53
--- NOTE | 2019-01-08 22:16 | NUR ---
RESPIRATORY NOTE: Pt placed on CPAP for nightly use. Pt is alert/awake, follows commands. Pt now on CPAP 10, 30%. Pt on a Facial mask, skin intact, no redness/breakdowns noted. Foam Tape applied on pt's nosebridge/cheeks/chin to prevent any irritations. B/S eduarda. diminished, nonproductive cough. CPAP machine plugged into red outlet, alarms on & audible. Pt in no apparent distress at this time. Will continue plan of care.
[2019-01-08 23:50] VITALS: BP 98/57
[2019-01-09 04:00] VITALS: BP 95/56
[2019-01-09 07:09] LABS: INR 2.3 (0.9-1.1)
--- NOTE | 2019-01-09 07:24 | NUR ---
HAND-OFF: Report given to YASMIN Clarke.
--- NOTE | 2019-01-09 07:25 | NUR ---
NURSE NOTES: Received patient awake, alert and oriented, lying comfortably in bed. IV site at left hand, 22 gauge, saline lock. Bed at lowest level with 3 side rails up. Call light within reach. In no apparent distress at this time. Will continue to monitor.
[2019-01-09 08:00] VITALS: BP 106/62
--- NOTE | 2019-01-09 08:17 | NUR ---
P.T WEEKLY PROGRESS NOTES: PATIENT HAS BEEN RECEIVING SKILLED P.T SERVICES FOR PAST WEEK TO IMPROVE HIS IN STRENGTH, BALANCE AND ENDURANCE TO INCREASE HIS LEVEL OF INDEPENDENCE AND SAFETY. PATIENT CURRENTLY REQUIRES MIN-MOD A X 1 FOR BED MOBILITY AND TRANSFER ACTIVITIES AND ABLE TO AMBULATE AND TOLERATE AVERAGE DISTANCE OF 100-150 FEET USING THE FWW WITH MIN-CGA X 1. PATIENT CONTINUE TO BE LIMITED BY GENERALIZED WEAKNESS AND PAIN FELT ON LOWER BACK, THIGH, BUTTOCKS AND B KNEES RANGING FROM 3-10/10. PATIENT IS HIGHLY MOTIVATED TO GET BETTER AND RETURN TO PLOF. WILL CONTINUE WITH POC WITH PROGRESSION OF ACTIVITIES. RECOMMENDING SNF FOR FURTHER REHAB OR HOME WITH CG ASSIST AND HOME P.T FOLLOW UP.
[2019-01-09] MEDS: Carvedilol 6.25mg Tab ORAL SCH ×2 (09:00→20:56)
--- NOTE | 2019-01-09 09:08 | NUR ---
CASE MANAGEMENT:REVIEW 01/09/19 SI: ACS. CHF. PSEUDOMONAS UTI RECENT PULMONARY EMBOLI. RENAL MASS ON US 97.7 54 16 109/63 95% ON RA IS: COUMADIN 2MG PO QD NORCO PO Q6HRS PRN LASIX PO QD LACTULOSE PO QD PROTONIX PO QD K-DUR PO QD COREG PO Q12 : TELEMETRY STATUS DCP: FROM [facility]
--- NOTE | 2019-01-09 09:10 | NUR ---
DISCHARGE PLANNING CALLED AND SPOKE WITH SURFACE SUPPLY BREATHING APPARATUS RIOS AT [facility] T: [phone] RIOS SAID PATIENT MAY HAVE TO RETURN TO [facility] IF SHE CANNOT FIND A BED AT ANOTHER FACILITY TODAY. RIOS WILL CALL THIS SURFACE SUPPLY BREATHING APPARATUS BACK Addendum: 01/09/19 at 1643 by MALCOLM MAURO LVN LVN STILL WAITING FOR [facility] TO FIND SNF PLACEMENT THEY MAY CALL DIRECTLY TO NURSES STATION AFTER HOURS
[2019-01-09] MEDS: Docusate 100mg cap ORAL SCH ×2 (09:16→17:38)
[2019-01-09] MEDS: Lactulose 20gm/30ml UDC ORAL SCH (09:16)
[2019-01-09] MEDS: Sennosides 8.6mg tab ORAL SCH (09:17)
[2019-01-09 12:00] VITALS: BP 103/67
--- NOTE | 2019-01-09 13:16 | NUR ---
*-* INSURANCE *-* UPDATED CLINICALS AND REVIEWS HAVE BEEN FAXED TO: [facility] F: [phone] P: [phone]
--- NOTE | 2019-01-09 13:38 | Infectious Diseases Prog Note ---
Assessment/Plan Assessment/Plan Assessment: Chest pain - CXR:Borderline cardiomegaly. No acute process Fever, SP No leukocytosis Probable UTI (+urinary hesitancy), sp Rx -CT abd/p: No evidence of renal mass lesion. Findings demonstrated on prior sonogram presumably artifactual. Equivocally thick-walled bladder, possibly artifact of under distention, but cystitis possible. Correlate with clinical and laboratory findings. Mild prostatomegaly. Scarring in the right inguinal region, suggestive of prior inguinal hernia repair. Equivocal cholelithiasis Thick-walled distal sigmoid and rectum with slight pericolonic fat stranding, concerning for proctitis/colitis. Correlate with clinical findings. Other findings as noted, including old healed right eighth rib fracture deformity, degenerative spondylosis, aortic valve prosthesis, posterior dependent pulmonary atelectatic changes -u/a wbc 2-4, nit neg, leuk +1; ucx >100k PsA (conde S), MDR K.pna (S Amikacin, Gentamicin) -Abd US: 1. 2.7 x 2.4 cm solid masslike lesion in the right lower renal pole. Recommend further evaluation with contrast-enhanced CT or MRI. Gallbladder wall thickening, measuring up to 6.5 mm. Mild pericholecystic fluid. No visible gallstones or sludge. Cannot exclude an acalculous cholecystitis. Spleen is enlarged, with a diameter of 13.8 cm. 1.2 x 0.8 cm simple-appearing cortical cyst in the mid right kidney. Diffusely echogenic liver, suggesting fatty infiltration. s/p TAVR 12/03/18 CKD CAD pHTN CVA CHF w/ EF 25-30% Afib GIB PUD w/ H. pylori infection AZUL on CPAP obesity hx of UTI 1st degree AV block PE on Coumadin Plan: -Continue to monitor off abx -01/06 SP Gentamicin #6 -01/01 SP ZOsyn #4 -12/28 SP Ceftriaxone x1 -f/u cx -Monitor CBC/CMP, temperatures Thank you for this consultation. Will continue to follow along with you. Discussed with RN Subjective Allergies: Coded Allergies: No Known Allergies (Unverified , 12/28/18) Subjective afebrile no leucocytosis Objective Vital Signs Last 24 Hour Vital Signs Date Time Temp Pulse Resp B/P (MAP) Pulse Ox O2 Delivery O2 Flow Rate FiO2 01/09/19 12:00 97.6 60 17 103/67 (79) 100 01/09/19 09:00 58 106/62 01/09/19 09:00 Room Air 01/09/19 08:00 97.4 58 18 106/62 (77) 96 01/09/19 07:36 67 18 97 Room Air 21 01/09/19 04:00 98.3 52 15 95/56 (69) 99 01/08/19 23:50 98.2 58 14 98/57 (71) 99 01/08/19 22:15 60 13 98 Facial 30 01/08/19 21:00 55 97/53 01/08/19 20:04 Room Air 01/08/19 20:00 98.4 55 16 97/53 (68) 99 01/08/19 19:38 65 18 96 Room Air 21 01/08/19 16:08 98.5 62 18 119/70 (86) 100 Height (Feet): 5 Height (Inches): 6.00 Weight (Pounds): 199 Objective GENERAL: The patient is alert and responds appropriately in Sami. VITAL SIGNS: Stable. The claims correspondence clerk shows sinus rhythm with PVC's. SKIN: Warm and dry. He is obese. HEENT: The head is normocephalic. CHEST: Clear. CARDIAC: Rhythm is irregular. ABDOMEN: Soft and nontender. EXTREMITIES: No clubbing, cyanosis, or edema. Laboratory Tests Test 01/09/19 05:35 Prothrombin Time 23.1 SEC (9.30-11.50) H Prothromb Time International Ratio 2.3 (0.9-1.1) H Current Medications Medications (Trade) Dose Ordered Sig/Chloe Route PRN Reason Start Time Stop Time Status Last Admin Dose Admin Acetaminophen/ Hydrocodone Bitart ([place] 10/325) 1 tab Q6H PRN ORAL Pain Scale (6-10) 01/04/19 11:45 01/11/19 11:44 01/08/19 17:33 Carvedilol (Coreg) 6.25 mg EVERY 12 HOURS ORAL 01/02/19 21:00 01/28/19 20:59 01/08/19 08:52 Docusate Sodium (Colace) 100 mg TWICE A DAY ORAL 01/02/19 18:00 01/27/19 08:59 01/09/19 09:16 Ferrous Sulfate (Feosol) 325 mg ACBREAKFAST ORAL 01/03/19 06:30 01/27/19 06:29 01/09/19 05:58 Furosemide (Lasix) 20 mg DAILY ORAL 01/03/19 09:00 01/27/19 08:59 01/09/19 09:17 Lactulose (Cephulac) 20 gm DAILY ORAL 01/03/19 09:00 01/27/19 08:59 01/09/19 09:16 Nitroglycerin (Ntg) 0.4 mg Q5M PRN SL Prn Chest Pain 01/02/19 09:50 01/27/19 04:44 Ondansetron HCl (Zofran) 4 mg Q6H PRN IVP Nausea & Vomiting 01/02/19 10:30 01/29/19 10:29 Pantoprazole (Protonix) 40 mg DAILY ORAL 01/03/19 09:00 01/27/19 08:59 01/09/19 09:17 Potassium Chloride (K-Dur) 40 meq DAILY ORAL 01/03/19 09:00 01/29/19 08:59 01/09/19 09:16 Sennosides (Senokot) 8.6 mg DAILY ORAL 01/03/19 09:00 01/27/19 08:59 01/09/19 09:17 Warfarin Sodium (Coumadin per pharmacy) 1 ea DAILY PRN MISC . 01/02/19 10:30 02/01/19 10:29 Warfarin Sodium (Coumadin) 2 mg ONCE ORAL 01/09/19 17:00 01/09/19 19:00 Nelli Jara M.D. Jan 09, 2019 13:38
[2019-01-09] MEDS: HYDROcodone/Acetamin 10/325 tab ORAL PRN (15:07)
[2019-01-09 16:00] VITALS: BP 103/60
[2019-01-09] MEDS ORDERED: Warfarin Sodium 1mg ORAL SCH (17:00)
--- NOTE | 2019-01-09 17:30 | General Progress Note ---
Assessment/Plan Assessment/Plan: 1. Acute coronary syndrome with history of coronary heart disease. Details unknown. 2. Status post TAVR. 3. History of atrial fibrillation and PVC's, currently in sinus rhythm. 4. History of sepsis. 5. Recent GI bleed due to gastric ulcer. 6. Recent pulmonary embolism, on therapeutic Coumadin. 7. Congestive heart failure with reduced ejection fraction. 8. Hyperlipidemia. 9. History of stroke involving the right middle cerebral artery. 10. Aortic atherosclerosis 11. PsA & Klebsiella UTI, resolved 12. Renal mass on US, not seen on CT 13. Concern for proctitis/colitis on CT, not confirmed Plan: cont coumadin CPAP qHS wound care d/w CM re: placement ready for dc Subjective ROS Limited/Unobtainable: Yes Allergies: Coded Allergies: No Known Allergies (Unverified , 12/28/18) Objective Last 24 Hour Vital Signs Date Time Temp Pulse Resp B/P (MAP) Pulse Ox O2 Delivery O2 Flow Rate FiO2 01/09/19 16:00 97.5 61 17 103/60 (74) 97 01/09/19 15:37 97.6 01/09/19 12:00 97.6 60 17 103/67 (79) 100 01/09/19 09:00 58 106/62 01/09/19 09:00 Room Air 01/09/19 08:00 97.4 58 18 106/62 (77) 96 01/09/19 07:36 67 18 97 Room Air 21 01/09/19 04:00 98.3 52 15 95/56 (69) 99 01/08/19 23:50 98.2 58 14 98/57 (71) 99 01/08/19 22:15 60 13 98 Facial 30 01/08/19 21:00 55 97/53 01/08/19 20:04 Room Air 01/08/19 20:00 98.4 55 16 97/53 (68) 99 01/08/19 19:38 65 18 96 Room Air 21 Intake and Output 01/08/19 01/09/19 19:00 07:00 Intake Total 800 ml 360 ml Balance 800 ml 360 ml Intake Oral 800 ml 360 ml # Voids 5 3 Laboratory Tests 01/09/19 05:35: Prothrombin Time 23.1H, Prothromb Time International Ratio 2.3H Height (Feet): 5 Height (Inches): 6.00 Weight (Pounds): 199 General Appearance: no apparent distress Cardiovascular: normal rate Respiratory/Chest: lungs clear Zac Aldridge MD Jan 09, 2019 17:30
--- NOTE | 2019-01-09 19:28 | NUR ---
HAND-OFF: Report given to YASMIN Christianson.
--- NOTE | 2019-01-09 19:48 | NUR ---
NURSE NOTES: Received patent in bed, awake, alert, oriented x4, Lithuanian speaking only, IV site is clean, dry and intact, patient is able to ambulate with a walker.Call light is within reach, bed is locked, lowered and alarm is on. Will continue to monitor for comfort and safety.
[2019-01-09 20:00] VITALS: BP 121/79
--- NOTE | 2019-01-09 22:31 | General Progress Note ---
Assessment/Plan Assessment/Plan: Assessment - Negative pelvic CT with rectal contrast - abnormal LFT, ? fatty liver - anemia Recommendations - continue bowel regimen - monitor CBC - anticoagulation Subjective Allergies: Coded Allergies: No Known Allergies (Unverified , 12/28/18) Subjective feels OK no abdominal complaints no events overnight Objective Last 24 Hour Vital Signs Date Time Temp Pulse Resp B/P (MAP) Pulse Ox O2 Delivery O2 Flow Rate FiO2 01/09/19 21:47 Room Air 01/09/19 20:56 89 121/79 01/09/19 20:00 64 18 97 Room Air 21 01/09/19 20:00 98.7 89 20 121/79 (93) 01/09/19 16:00 97.5 61 17 103/60 (74) 97 01/09/19 15:37 97.6 01/09/19 12:00 97.6 60 17 103/67 (79) 100 01/09/19 09:00 58 106/62 01/09/19 09:00 Room Air 01/09/19 08:00 97.4 58 18 106/62 (77) 96 01/09/19 07:36 67 18 97 Room Air 21 01/09/19 04:00 98.3 52 15 95/56 (69) 99 01/08/19 23:50 98.2 58 14 98/57 (71) 99 Intake and Output 01/08/19 01/09/19 19:00 07:00 Intake Total 800 ml 360 ml Balance 800 ml 360 ml Intake Oral 800 ml 360 ml # Voids 5 3 Laboratory Tests 01/09/19 05:35: Prothrombin Time 23.1H, Prothromb Time International Ratio 2.3H Height (Feet): 5 Height (Inches): 6.00 Weight (Pounds): 199 Frankie Huynh MD Jan 09, 2019 22:30
--- NOTE | 2019-01-09 22:48 | NUR ---
RESPIRATORY NOTE: Pt placed on CPAP for nightly use. Pt alert/awake, follows commands. Pt placed on CPAP 10, 30%. Pt on a Facial mask, skin intact, no redness/breakdowns noted. Foam Tape applied on pt's nosebridge/cheeks/chin to prevent any irritations. B/S eduarda. diminished, nonproductive cough. CPAP machine plugged into red outlet, alarms on & audible. Pt denies SOB/chest pain, in no apparent distress at this time. Will continue plan of care.
[2019-01-10] VITALS (7 sets, daily range): BP systolic 106–135; BP diastolic 64–85
--- NOTE | 2019-01-10 06:25 | NUR ---
CASE MANAGEMENT:REVIEW 01/10/19 SI: ACS. CHF. PSEUDOMONAS UTI RECENT PULMONARY EMBOLI. RENAL MASS ON US T 97.8 HR 75 RR 20 B/P 135/75 SATS 98% ON BIPAP FIO2 30 NO LABS TODAY IS: COUMADIN 2MG PO QD NORCO PO Q6HRS PRN LASIX PO QD LACTULOSE PO QD PROTONIX PO QD K-DUR PO QD COREG PO Q12 : MED/SURG STATUS DCP: FROM [facility]
[2019-01-10 07:01] LABS: INR 2.6 (0.9-1.1)
--- NOTE | 2019-01-10 07:12 | NUR ---
NURSE NOTES: PATIENT RECEIVED FROM YASMIN GARG. PATIENT SLEEPING IN BED WITH NO PHYSICAL SIGNS OF DISTRESS. PATIENT HAS IV SITE SALINE LOCKED, DRESSING IS CLEAN DRY AND INTACT. BED IS IN THE LOW AND LOCKED POSITION AND CALL LIGHT IN REACH. WILL CONTINUE TO MONITOR PATIENT.
--- NOTE | 2019-01-10 07:31 | NUR ---
HAND-OFF: Report given to Zach HOFFMAN.
--- NOTE | 2019-01-10 08:42 | NUR ---
NURSE NOTES: PATIENT COMPLAINED OF JOLTING AWAKE BECAUSE SOMETHING SCARED HIM. CHECKED HIS VITALS AND EVERYTHING IS STABLE. PATIENT DENIES ANY CHEST PAIN OR SHORTNESS OF BREATH.
[2019-01-10] MEDS: Carvedilol 6.25mg Tab ORAL SCH ×2 (08:59→20:29)
[2019-01-10] MEDS: Lactulose 20gm/30ml UDC ORAL SCH (08:59)
[2019-01-10] MEDS: Sennosides 8.6mg tab ORAL SCH (08:59)
[2019-01-10] MEDS: Docusate 100mg cap ORAL SCH ×2 (09:02→17:01)
--- NOTE | 2019-01-10 11:08 | NUR ---
RD ASSESSMENT & RECOMMENDATIONS SEE CARE ACTIVITY FOR COMPLETE ASSESSMENT DAILY ESTIMATED NEEDS: Needs based on cardiac, pulmonary 71kg adj 25-30 kcals/kg [id number] total kcals 1-1.5 g protein/kg 71-107 g total protein Fluid per MD, on lasix NUTRITION DIAGNOSIS: Altered nutrition related lab values r/t clinical status as evidenced by low Hgb (8.7), low Na (133), elev AST-> labs not updated. CURRENT DIET:Regular PO DIET RECOMMENDATIONS: CARDIAC DIET ADDITIONAL RECOMMENDATIONS: 1) Obtain a daily standing weight on lasix 2) Rec updated CBC and CMP as able (last lab done on 01/03) 3) Monitor Na (133), need for fluid restriction 4) Coumadin, FDI diet edu provided
--- NOTE | 2019-01-10 14:56 | NUR ---
*-* INSURANCE *-* UPDATED CLINICALS AND REVIEWS HAVE BEEN FAXED TO: [facility] F: [phone] P: [phone]
--- NOTE | 2019-01-10 15:06 | NUR ---
DISCHARGE PLANNING [facility] HAS SECURED A BED FOR PATIENT AT [facility] [address] [place], [address] T: [phone] SPOKE WITH PATIENT'S NIECE, BELLA VALLADARES T: [phone], WHO IS IN AGREEMENT WITH DISCHARGE DISPOSITION. BELLA IS ON HER WAY TO HOSPITAL TO INFORM HER UNCLE FOR DISCHARGE. IF PATIENT REFUSES THIS NEW NF HE WILL PROBABLY RECEIVE A DENIAL LETTER FROM [facility] WILL OBTAIN ROOM NUMBER AND ARRANGE AMBULANCE. ONCE THEY HAVE ARRANGED EVERYTHING THEY WILL CONTACT THE NURSES STATION [id number]
--- NOTE | 2019-01-10 16:29 | Infectious Diseases Prog Note ---
Assessment/Plan Assessment/Plan Assessment: Chest pain - CXR:Borderline cardiomegaly. No acute process Fever, SP No leukocytosis Probable UTI (+urinary hesitancy), sp Rx -CT abd/p: No evidence of renal mass lesion. Findings demonstrated on prior sonogram presumably artifactual. Equivocally thick-walled bladder, possibly artifact of under distention, but cystitis possible. Correlate with clinical and laboratory findings. Mild prostatomegaly. Scarring in the right inguinal region, suggestive of prior inguinal hernia repair. Equivocal cholelithiasis Thick-walled distal sigmoid and rectum with slight pericolonic fat stranding, concerning for proctitis/colitis. Correlate with clinical findings. Other findings as noted, including old healed right eighth rib fracture deformity, degenerative spondylosis, aortic valve prosthesis, posterior dependent pulmonary atelectatic changes -u/a wbc 2-4, nit neg, leuk +1; ucx >100k PsA (conde S), MDR K.pna (S Amikacin, Gentamicin) -Abd US: 1. 2.7 x 2.4 cm solid masslike lesion in the right lower renal pole. Recommend further evaluation with contrast-enhanced CT or MRI. Gallbladder wall thickening, measuring up to 6.5 mm. Mild pericholecystic fluid. No visible gallstones or sludge. Cannot exclude an acalculous cholecystitis. Spleen is enlarged, with a diameter of 13.8 cm. 1.2 x 0.8 cm simple-appearing cortical cyst in the mid right kidney. Diffusely echogenic liver, suggesting fatty infiltration. s/p TAVR 12/03/18 CKD CAD pHTN CVA CHF w/ EF 25-30% Afib GIB PUD w/ H. pylori infection AZUL on CPAP obesity hx of UTI 1st degree AV block PE on Coumadin Plan: -Continue to monitor off abx -01/06 SP Gentamicin #6 -01/01 SP ZOsyn #4 -12/28 SP Ceftriaxone x1 -f/u cx -Monitor CBC/CMP, temperatures Thank you for this consultation. Will continue to follow along with you. Discussed with RN Subjective Allergies: Coded Allergies: No Known Allergies (Unverified , 12/28/18) Subjective afebrile no leucocytosis Objective Vital Signs Last 24 Hour Vital Signs Date Time Temp Pulse Resp B/P (MAP) Pulse Ox O2 Delivery O2 Flow Rate FiO2 01/10/19 12:39 59 20 97 Room Air 21 01/10/19 12:00 97.8 79 18 110/69 (83) 99 01/10/19 09:00 Room Air 01/10/19 08:59 53 108/71 01/10/19 08:00 98.0 53 18 108/71 (83) 96 01/10/19 04:00 97.8 75 20 135/75 (95) 01/10/19 00:58 63 18 98 Facial 30 01/10/19 00:15 98.9 87 20 124/85 (98) 01/09/19 22:45 65 18 97 Facial 30 01/09/19 21:47 Room Air 01/09/19 20:56 89 121/79 01/09/19 20:00 64 18 97 Room Air 21 01/09/19 20:00 98.7 89 20 121/79 (93) Height (Feet): 5 Height (Inches): 6.00 Weight (Pounds): 199 Objective GENERAL: The patient is alert and responds appropriately in [place]. VITAL SIGNS: Stable. The library monitor shows sinus rhythm with PVC's. SKIN: Warm and dry. He is obese. HEENT: The head is normocephalic. CHEST: Clear. CARDIAC: Rhythm is irregular. ABDOMEN: Soft and nontender. EXTREMITIES: No clubbing, cyanosis, or edema. Laboratory Tests Test 01/10/19 06:24 Prothrombin Time 26.2 SEC (9.30-11.50) H Prothromb Time International Ratio 2.6 (0.9-1.1) H Current Medications Medications (Trade) Dose Ordered Sig/Chloe Route PRN Reason Start Time Stop Time Status Last Admin Dose Admin Acetaminophen/ Hydrocodone Bitart ([place] 10/325) 1 tab Q6H PRN ORAL Pain Scale (6-10) 01/04/19 11:45 01/11/19 11:44 01/09/19 15:07 Carvedilol (Coreg) 6.25 mg EVERY 12 HOURS ORAL 01/02/19 21:00 01/28/19 20:59 01/10/19 08:59 Docusate Sodium (Colace) 100 mg TWICE A DAY ORAL 01/02/19 18:00 01/27/19 08:59 01/10/19 09:02 Ferrous Sulfate (Feosol) 325 mg ACBREAKFAST ORAL 01/03/19 06:30 01/27/19 06:29 01/10/19 05:23 Furosemide (Lasix) 20 mg DAILY ORAL 01/03/19 09:00 01/27/19 08:59 01/10/19 09:02 Lactulose (Cephulac) 20 gm DAILY ORAL 01/03/19 09:00 01/27/19 08:59 01/10/19 08:59 Nitroglycerin (Ntg) 0.4 mg Q5M PRN SL Prn Chest Pain 01/02/19 09:50 01/27/19 04:44 Ondansetron HCl (Zofran) 4 mg Q6H PRN IVP Nausea & Vomiting 01/02/19 10:30 01/29/19 10:29 Pantoprazole (Protonix) 40 mg DAILY ORAL 01/03/19 09:00 01/27/19 08:59 01/10/19 09:02 Potassium Chloride (K-Dur) 40 meq DAILY ORAL 01/03/19 09:00 01/29/19 08:59 01/10/19 09:02 Sennosides (Senokot) 8.6 mg DAILY ORAL 01/03/19 09:00 01/27/19 08:59 01/10/19 08:59 Warfarin Sodium (Coumadin per pharmacy) 1 ea DAILY PRN MISC . 01/02/19 10:30 02/01/19 10:29 Warfarin Sodium (Coumadin) 1.5 mg COUMADIN ONCE ORAL 01/10/19 17:00 01/10/19 17:01 Nelli Jara M.D. Jan 10, 2019 16:29
[2019-01-10] MEDS ORDERED: Warfarin Sodium 1mg ORAL ONE (17:00)
--- NOTE | 2019-01-10 17:27 | General Progress Note ---
Assessment/Plan Assessment/Plan: 1. Acute coronary syndrome with history of coronary heart disease. Details unknown. 2. Status post TAVR. 3. History of atrial fibrillation and PVC's, currently in sinus rhythm. 4. History of sepsis. 5. Recent GI bleed due to gastric ulcer. 6. Recent pulmonary embolism, on therapeutic Coumadin. 7. Congestive heart failure with reduced ejection fraction. 8. Hyperlipidemia. 9. History of stroke involving the right middle cerebral artery. 10. Aortic atherosclerosis 11. PsA & Klebsiella UTI, resolved 12. Renal mass on US, not seen on CT 13. Concern for proctitis/colitis on CT, not confirmed Plan: cont coumadin - INR therapeutic CPAP qHS wound care d/w RN re:placement ready for dc Subjective ROS Limited/Unobtainable: Yes Allergies: Coded Allergies: No Known Allergies (Unverified , 12/28/18) Objective Last 24 Hour Vital Signs Date Time Temp Pulse Resp B/P (MAP) Pulse Ox O2 Delivery O2 Flow Rate FiO2 01/10/19 14:00 97.4 69 19 117/79 (92) 98 01/10/19 12:39 59 20 97 Room Air 21 01/10/19 12:00 97.8 79 18 110/69 (83) 99 01/10/19 09:00 Room Air 01/10/19 08:59 53 108/71 01/10/19 08:00 98.0 53 18 108/71 (83) 96 01/10/19 04:00 97.8 75 20 135/75 (95) 01/10/19 00:58 63 18 98 Facial 30 01/10/19 00:15 98.9 87 20 124/85 (98) 01/09/19 22:45 65 18 97 Facial 30 01/09/19 21:47 Room Air 01/09/19 20:56 89 121/79 01/09/19 20:00 64 18 97 Room Air 21 01/09/19 20:00 98.7 89 20 121/79 (93) Intake and Output 01/09/19 01/10/19 19:00 07:00 Intake Total 800 ml Output Total 400 ml 600 ml Balance 400 ml -600 ml Intake Oral 800 ml Output Urine Total 400 ml 600 ml # Voids 2 Laboratory Tests 01/10/19 06:24: Prothrombin Time 26.2H, Prothromb Time International Ratio 2.6H Height (Feet): 5 Height (Inches): 6.00 Weight (Pounds): 199 General Appearance: no apparent distress Cardiovascular: normal rate Zac Aldridge MD Jan 10, 2019 17:27
--- NOTE | 2019-01-10 18:45 | NUR ---
NURSE NOTES: PAPER AND PRINTS RESTORER INFORMED ME THAT [facility] CALLED TO INFORM US THAT THEY HAVE A BED FOR THE PATIENT AT THEIR FACILITY. I NOTIFIED MARY RUDD REGARDING PATIENT DISCHARGE TO [facility], DASHAWN AGREED TO DC PLAN. CONTACTED [facility] FACILITY TO GIVE REPORT. FACILITY STATED THAT THEY COULD NOT FIND THE PATIENT IN THEIR SYSTEM AND SAID THEY WOULD CALL BACK. CALL WAS PLACED AT 1840. WILL NOTIFY ONCOMING BUS REPAIR SUPERVISOR NURSE OF THE SITUATION.
--- NOTE | 2019-01-10 19:30 | NUR ---
NURSE NOTES: Received patient resting in bed. AAO x 4, on room air. Afghan speaking. IV site intact and dry. Cpap will apply at night time. YASMIN Serrano reported me that we are waiting call back from [facility] for transfer. Bed locked, lowest position, alarm on, side rails up x 2, call light within reach. Will continue to monitor.
--- NOTE | 2019-01-10 19:50 | NUR ---
HAND-OFF: Report given to YASMIN AKERS.
--- NOTE | 2019-01-10 20:43 | NUR ---
NURSE NOTES: Pt c/o L side chest pain 08/22. Nitroglycerin 1 tablet given as prn order. Addendum: 01/10/19 at 2048 by DELPHINE PRAKASH RN RN NURSE NOTES: Recheck 5 min after giving Nitroglycerin. Pt reported pain is calm down.
--- NOTE | 2019-01-10 21:50 | NUR ---
NURSE NOTES: Called RT to apply Cpap.
[2019-01-11] VITALS (7 sets, daily range): BP systolic 95–128; BP diastolic 61–75
[2019-01-11 06:46] LABS: INR 2.5 (0.9-1.1)
--- NOTE | 2019-01-11 07:30 | NUR ---
HAND-OFF: Report given to YASMIN Bryant.
--- NOTE | 2019-01-11 08:02 | NUR ---
NURSE NOTES: Received report from Kaye Andrade. Pt sitting in chair at bedside eating breakfast, awake, calm, talkative, no apparent distress noted, call light within reach, discussed plan of care.
[2019-01-11] MEDS: Carvedilol 6.25mg Tab ORAL SCH (09:00)
[2019-01-11] MEDS: Lactulose 20gm/30ml UDC ORAL SCH (09:15)
[2019-01-11] MEDS: Sennosides 8.6mg tab ORAL SCH (09:15)
[2019-01-11] MEDS: Docusate 100mg cap ORAL SCH ×2 (09:16→17:38)
--- NOTE | 2019-01-11 09:21 | NUR ---
NURSE NOTES: BP at 0800 95/62 HR 63, RN rechecked BP now 99/65 HR 67. RN held Carvedilol 6.25mg and lasix 20mg. Left message for Dr. Aldridge regarding BP and holding meds, asked to call 4E if he wants RN to give meds
--- NOTE | 2019-01-11 09:34 | NUR ---
CASE MANAGEMENT:REVIEW 01/11/19 SI: ACS. CHF. PSEUDOMONAS UTI RECENT PULMONARY EMBOLI. RENAL MASS ON US 97.9 63 18 95/62 98% ON RA PT+25.6 INR+2.5 IS: COUMADIN PO PER PHARMACY NORCO PO Q6HRS PRN LASIX PO QD LACTULOSE PO QD PROTONIX PO QD K-DUR PO QD COREG PO Q12 : MED/SURG STATUS 4 [facility]: INFORMED BY [employer] CONFERENCE MANAGER THAT PATIENT NO LONGER MEETS CRITERIA FOR SNF PLACEMENT SINCE HE IS AMBULATING 175FT. EXPLAINED THAT PATIENT IS UNSTEADY AND NOT FULLY INDEPENDENT REFERRED TO [facility] SNF...THEY CANNOT ACCEPT UNDER RETIREMENT BECAUSE [employer] PLAN IS CONTROLLING BOTH THE MEDICARE AND MEDI-JOANNA UPDATED DR BLANTON AND PATIENT'S NIECE
--- NOTE | 2019-01-11 09:41 | NUR ---
DISCHARGE PLANNING INFORMED BY [employer] TILE SHADER THAT PATIENT NO LONGER MEETS CRITERIA FOR SNF PLACEMENT SINCE HE IS AMBULATING 175FT. EXPLAINED THAT PATIENT IS UNSTEADY AND NOT FULLY INDEPENDENT THEY WILL NOT GIVE AUTHORIZATION FOR ANY CARE HOME REFERRED TO [facility]...THEY CANNOT ACCEPT UNDER LONG-TERM BECAUSE [facility] [employer] PLAN IS CONTROLLING BOTH THE MEDICARE AND MEDI-JOANNA UPDATED DR BLANTON AND PATIENT'S NIECE NIECE BELLA IS TRYING TO MAKE ARRANGEMENTS TO BRING PATIENT HOME TOMORROW. BELLA IS PATIENT'S ONLY FAMILY IN [place]
--- NOTE | 2019-01-11 12:41 | General Progress Note ---
Assessment/Plan Assessment/Plan: 1. Acute coronary syndrome with history of coronary heart disease. Details unknown. 2. Status post TAVR. 3. History of atrial fibrillation and PVC's, currently in sinus rhythm. 4. History of sepsis. 5. Recent GI bleed due to gastric ulcer. 6. Recent pulmonary embolism, on therapeutic Coumadin. 7. Congestive heart failure with reduced ejection fraction, diastolic dysfunction 8. Hyperlipidemia. 9. History of stroke involving the right middle cerebral artery. 10. Aortic atherosclerosis 11. PsA & Klebsiella UTI, resolved 12. Renal mass on US, not seen on CT 13. Concern for proctitis/colitis on CT, not confirmed Plan: cont coumadin - INR therapeutic CPAP qHS wound care d/w CM; no suth for snf DC home ready for dc Subjective Allergies: Coded Allergies: No Known Allergies (Unverified , 12/28/18) Objective Last 24 Hour Vital Signs Date Time Temp Pulse Resp B/P (MAP) Pulse Ox O2 Delivery O2 Flow Rate FiO2 01/11/19 09:00 63 95/62 01/11/19 08:55 69 20 98 Room Air 21 01/11/19 08:00 97.9 63 18 95/62 (73) 98 01/11/19 05:47 62 15 98 Facial 30 01/11/19 04:00 97.3 57 16 121/75 (90) 100 01/11/19 03:30 60 14 97 Facial 30 01/11/19 01:00 61 17 98 Facial 30 01/11/19 00:00 98.0 53 14 128/73 (91) 100 01/10/19 22:13 67 17 98 Facial 30 01/10/19 21:00 Room Air 01/10/19 20:42 106/64 01/10/19 20:29 58 106/64 01/10/19 20:03 58 20 97 Room Air 21 01/10/19 20:00 98.1 58 18 106/64 (78) 98 01/10/19 16:00 97.4 69 19 117/79 (92) 98 01/10/19 14:00 97.4 69 19 117/79 (92) 98 01/10/19 12:39 59 20 97 Room Air 21 Intake and Output 01/10/19 01/11/19 19:00 07:00 Intake Total 800 ml Output Total 700 ml Balance 800 ml -700 ml Other 800 ml Output Urine Total 700 ml # Voids 3 # Bowel Movements 1 Laboratory Tests 01/11/19 05:22: Prothrombin Time 25.6H, Prothromb Time International Ratio 2.5H Height (Feet): 5 Height (Inches): 6.00 Weight (Pounds): 199 Zac Aldridge MD Jan 11, 2019 12:41
--- NOTE | 2019-01-11 14:47 | Infectious Diseases Prog Note ---
Assessment/Plan Assessment/Plan Assessment: Chest pain - CXR:Borderline cardiomegaly. No acute process Fever, SP No leukocytosis Probable UTI (+urinary hesitancy), sp Rx -CT abd/p: No evidence of renal mass lesion. Findings demonstrated on prior sonogram presumably artifactual. Equivocally thick-walled bladder, possibly artifact of under distention, but cystitis possible. Correlate with clinical and laboratory findings. Mild prostatomegaly. Scarring in the right inguinal region, suggestive of prior inguinal hernia repair. Equivocal cholelithiasis Thick-walled distal sigmoid and rectum with slight pericolonic fat stranding, concerning for proctitis/colitis. Correlate with clinical findings. Other findings as noted, including old healed right eighth rib fracture deformity, degenerative spondylosis, aortic valve prosthesis, posterior dependent pulmonary atelectatic changes -u/a wbc 2-4, nit neg, leuk +1; ucx >100k PsA (conde S), MDR K.pna (S Amikacin, Gentamicin) -Abd US: 1. 2.7 x 2.4 cm solid masslike lesion in the right lower renal pole. Recommend further evaluation with contrast-enhanced CT or MRI. Gallbladder wall thickening, measuring up to 6.5 mm. Mild pericholecystic fluid. No visible gallstones or sludge. Cannot exclude an acalculous cholecystitis. Spleen is enlarged, with a diameter of 13.8 cm. 1.2 x 0.8 cm simple-appearing cortical cyst in the mid right kidney. Diffusely echogenic liver, suggesting fatty infiltration. s/p TAVR 12/03/18 CKD CAD pHTN CVA CHF w/ EF 25-30% Afib GIB PUD w/ H. pylori infection AZUL on CPAP obesity hx of UTI 1st degree AV block PE on Coumadin Plan: -Continue to monitor off abx -01/06 SP Gentamicin #6 -01/01 SP ZOsyn #4 -12/28 SP Ceftriaxone x1 -f/u cx -Monitor CBC/CMP, temperatures Thank you for this consultation. Will continue to follow along with you. Discussed with RN Subjective Allergies: Coded Allergies: No Known Allergies (Unverified , 12/28/18) Subjective afebrile no leucocytosis Objective Vital Signs Last 24 Hour Vital Signs Date Time Temp Pulse Resp B/P (MAP) Pulse Ox O2 Delivery O2 Flow Rate FiO2 01/11/19 12:00 97.5 70 17 101/70 (80) 96 01/11/19 09:00 63 95/62 01/11/19 09:00 Room Air 01/11/19 08:55 69 20 98 Room Air 21 01/11/19 08:00 97.9 63 18 95/62 (73) 98 01/11/19 05:47 62 15 98 Facial 30 01/11/19 04:00 97.3 57 16 121/75 (90) 100 01/11/19 03:30 60 14 97 Facial 30 01/11/19 01:00 61 17 98 Facial 30 01/11/19 00:00 98.0 53 14 128/73 (91) 100 01/10/19 22:13 67 17 98 Facial 30 01/10/19 21:00 Room Air 01/10/19 20:42 106/64 01/10/19 20:29 58 106/64 01/10/19 20:03 58 20 97 Room Air 21 01/10/19 20:00 98.1 58 18 106/64 (78) 98 01/10/19 16:00 97.4 69 19 117/79 (92) 98 Height (Feet): 5 Height (Inches): 6.00 Weight (Pounds): 199 Objective GENERAL: The patient is alert and responds appropriately in Japanese. VITAL SIGNS: Stable. The display department manager shows sinus rhythm with PVC's. SKIN: Warm and dry. He is obese. HEENT: The head is normocephalic. CHEST: Clear. CARDIAC: Rhythm is irregular. ABDOMEN: Soft and nontender. EXTREMITIES: No clubbing, cyanosis, or edema. Laboratory Tests Test 01/11/19 05:22 Prothrombin Time 25.6 SEC (9.30-11.50) H Prothromb Time International Ratio 2.5 (0.9-1.1) H Current Medications Medications (Trade) Dose Ordered Sig/Chloe Route PRN Reason Start Time Stop Time Status Last Admin Dose Admin Carvedilol (Coreg) 6.25 mg EVERY 12 HOURS ORAL 01/02/19 21:00 01/28/19 20:59 01/10/19 20:29 Docusate Sodium (Colace) 100 mg TWICE A DAY ORAL 01/02/19 18:00 01/27/19 08:59 01/11/19 09:16 Ferrous Sulfate (Feosol) 325 mg ACBREAKFAST ORAL 01/03/19 06:30 01/27/19 06:29 01/11/19 05:44 Furosemide (Lasix) 20 mg DAILY ORAL 01/03/19 09:00 01/27/19 08:59 01/10/19 09:02 Lactulose (Cephulac) 20 gm DAILY ORAL 01/03/19 09:00 01/27/19 08:59 01/11/19 09:15 Nitroglycerin (Ntg) 0.4 mg Q5M PRN SL Prn Chest Pain 01/02/19 09:50 01/27/19 04:44 01/10/19 20:42 Ondansetron HCl (Zofran) 4 mg Q6H PRN IVP Nausea & Vomiting 01/02/19 10:30 01/29/19 10:29 Pantoprazole (Protonix) 40 mg DAILY ORAL 01/03/19 09:00 01/27/19 08:59 01/11/19 09:16 Potassium Chloride (K-Dur) 40 meq DAILY ORAL 01/03/19 09:00 01/29/19 08:59 01/11/19 09:16 Sennosides (Senokot) 8.6 mg DAILY ORAL 01/03/19 09:00 01/27/19 08:59 01/11/19 09:15 Warfarin Sodium (Coumadin per pharmacy) 1 ea DAILY PRN MISC . 01/02/19 10:30 02/01/19 10:29 Warfarin Sodium (Coumadin) 1.5 mg ONCE ORAL 01/11/19 17:00 01/11/19 19:00 Nelli Jara M.D. Jan 11, 2019 14:47
--- NOTE | 2019-01-11 14:57 | NUR ---
*-* INSURANCE *-* UPDATED CLINICALS AND REVIEWS HAVE BEEN FAXED TO: [facility] F: [phone] P: [phone]
--- NOTE | 2019-01-11 15:52 | NUR ---
DISCHARGE PLANNED PATIENT IS DISCHARGING TO [facility] [address] [facility] T: [phone] FOR NURSE TO NURSE REPORT [facility] HAS BEEN ARRANGED FOR [address] [employer] SPOKE WITH BELLA LEON, WHO IS IN AGREEMENT WITH DISCHARGE DISPOSITION
[2019-01-11] MEDS ORDERED: Warfarin Sodium 1mg ORAL SCH (17:00)
--- NOTE | 2019-01-11 17:08 | General Progress Note ---
Assessment/Plan Assessment/Plan: Assessment - Negative pelvic CT with rectal contrast - abnormal LFT, ? fatty liver - anemia Recommendations - continue bowel regimen - monitor CBC - anticoagulation - I will sign off. Please re-consult PRN Subjective Allergies: Coded Allergies: No Known Allergies (Unverified , 12/28/18) Subjective feels OK no abdominal complaints no events overnight Objective Last 24 Hour Vital Signs Date Time Temp Pulse Resp B/P (MAP) Pulse Ox O2 Delivery O2 Flow Rate FiO2 01/11/19 16:00 97.7 81 19 113/75 (88) 97 01/11/19 12:00 97.5 70 17 101/70 (80) 96 01/11/19 09:00 63 95/62 01/11/19 09:00 Room Air 01/11/19 08:55 69 20 98 Room Air 21 01/11/19 08:00 97.9 63 18 95/62 (73) 98 01/11/19 05:47 62 15 98 Facial 30 01/11/19 04:00 97.3 57 16 121/75 (90) 100 01/11/19 03:30 60 14 97 Facial 30 01/11/19 01:00 61 17 98 Facial 30 01/11/19 00:00 98.0 53 14 128/73 (91) 100 01/10/19 22:13 67 17 98 Facial 30 01/10/19 21:00 Room Air 01/10/19 20:42 106/64 01/10/19 20:29 58 106/64 01/10/19 20:03 58 20 97 Room Air 21 01/10/19 20:00 98.1 58 18 106/64 (78) 98 Intake and Output 01/10/19 01/11/19 19:00 07:00 Intake Total 800 ml Output Total 700 ml Balance 800 ml -700 ml Other 800 ml Output Urine Total 700 ml # Voids 3 # Bowel Movements 1 Laboratory Tests 01/11/19 05:22: Prothrombin Time 25.6H, Prothromb Time International Ratio 2.5H Height (Feet): 5 Height (Inches): 6.00 Weight (Pounds): 199 Frankie Huynh MD Jan 11, 2019 17:08
--- NOTE | 2019-01-11 17:15 | NUR ---
NURSE NOTES: Called report to YASMIN May at [facility]. Lalo aware of need for CPAP. They cannot accommodate for CPAP. RN called LUIS Amador
--- NOTE | 2019-01-11 19:46 | NUR ---
HAND-OFF: Report given to YASMIN Queen. Pt is awaing ambulance for DC.
--- NOTE | 2019-01-11 19:47 | NUR ---
NURSE NOTES: Received patient in bed. A&OX4. IV site patent and intact. Patient is waiting for discharge. Bed in lowest position. Call light within reach. Will continue to monitor.
--- NOTE | 2019-01-11 22:02 | NUR ---
RESPIRATORY NOTE: Pt placed on CPAP for night time use. Pt alert/awake, follows commands. Pt placed on CPAP 10, 30%. Pt on a Facial mask, skin intact, no redness/breakdowns noted. Foam Tape applied on pt's nosebridge/cheeks/chin to prevent any irritations. B/S eduarda. diminished, nonproductive cough. CPAP machine plugged into red outlet, alarms on & audible. Pt denies SOB/chest pain at this time. Will continue plan of care.
--- NOTE | 2019-01-11 22:33 | NUR ---
NURSE NOTES: Patient discharged [facility] with stable condition. Picked up by ambulance staff. Belongings are sent with patient. IV and ID band removed.
--- NOTE | 2019-01-14 14:58 | Discharge Summary ---
Discharge Summary Discharge Summary _ DATE OF ADMISSION: 12/28/2018 DATE OF DISCHARGE: 01/11/2019 DISCHARGED BY: Dr. Zac Aldridge CONSULTANTS: Dr. Frankie Diaz BRIEF HOSPITAL COURSE: Patient is a 68-year-old male who was hospitalized recently at another facility for sepsis and was [facility] he [facility] for several weeks getting rehabilitation therapy. He developed severe chest pain across the right anterior chest. He was transported to emergency department by paramedics. Chest pain was resolved after nitroglycerin. He has medical history significant for hypertension, possible coronary artery disease, congestive heart failure with ejection fraction of 20%, cardiomyopathy, paroxysmal atrial fibrillation with rapid ventricular response. Recently he was admitted with sepsis due to urinary tract infection and GI bleed due to gastric ulcer. He had right lower lobe pulmonary embolism and is on anticoagulant. He has severe aortic stenosis and underwent transcutaneous aortic valve replacement on December 03, 2018. He has past stroke and difficulty ambulating. Details of the coronary disease were not known. He has pulmonary hypertension and sleep apnea on CPAP. On evaluation at the ED, vital signs were stable. Blood work did not show any leukocytosis. Hemoglobin 9, hematocrit 28. Troponin was negative. EKG showed normal sinus rhythm with nonspecific ST changes. Urinalysis showed +1 leukocyte esterase, 40-60 urine RBC, 2-4 urine WBC. Chest x-ray did not show any acute disease. He was given IV hydration. He was started empirically on ceftriaxone. He was then admitted for evaluation of acute coronary syndrome. He was admitted to monitored floor. Cardiac enzymes were monitored. [employer] was consulted. EKG showed left bundle branch block with PVCs and has been nondiagnostic. Echocardiogram showed mildly reduced LV ejection fraction with ejection fraction of 40 to 45% with aortic replacement. Aortic valve area was reduced with aortic valve area of 0.7 cm consistent with severe stenosis. There was mild tricuspid and mitral regurgitation. The tricuspid velocities suggest systolic pressure of 38 mmHg consistent with mild pulmonary hypertension. Patient patient still with increased aortic valve gradient despite status post TAVR, which may be due to valve structure and presence of aortic insufficiency. Coumadin dose was reduced. Patient was recommended Lexiscan nuclear stress test to rule out ischemia. He had an episode of PVCs and 4 beats of V. tach. Magnesium level 1.4. He was given mag supplementation. Coreg was increased to 6.25 mg twice daily. He was continued on CPAP nightly He was given Zosyn empirically for UTI. Urine culture showed growth of Pseudomonas MDR Klebsiella pneumonia. Zosyn was changed to gentamicin. Abdominal ultrasound showed a solid masslike lesion in the right lower renal pole. Gallbladder wall thickening. No visible gallstones. CT of the abdomen and pelvis did not show any evidence of renal mass lesion. Thick-walled bladder , possibly artifact of under distention, cystitis possible. Mild prostatomegaly. Thick walled distal sigmoid and rectum with slight pericolonic fat stranding, concerning for proctitis/colitis. Nuclear stress test was negative for ischemia. He was ruled out for MD. Patient refused to return to prior SNF. GI was consulted for questionable thickening distal colon. Patient stated he had endoscopy and colonoscopy done in November of this year at [facility] who was noted to have any abnormalities in examination. He was given bowel regimen. He was recommended repeat CT with rectal contrast. He came in with a stage I sacral ulcer. He was given wound care. He completed antibiotic treatment and was monitored off antibiotics. Repeat CT of the pelvis was negative. Patient had a lengthy stay due to placement issues. Finally, patient was accepted to [facility]. Patient was eventually discharged to a SNF. FINAL DIAGNOSES: Acute coronary syndrome with history of coronary heart disease Status post TAVR Paroxysmal atrial fibrillation, currently in sinus rhythm History of sepsis Recent GI bleed due to gastric ulcer Recent pulmonary embolism, on Coumadin Chronic congestive heart failure with diastolic dysfunction Hyperlipidemia Old stroke involving the right middle cerebral artery Pseudomonas and Klebsiella UTI, resolved Renal mass on ultrasound, not seen on CT Concern for proctitis colitis H therapy, not confirmed Sleep apnea on CPAP Pulmonary hypertension DISPOSITION: DC to SNF DISCHARGE MEDICATIONS: Refer to Discharge Medication List. I have been assigned to complete a discharge summary on this account, I was not involved with the patient's management.--SISSY Andrews Jacqueline Robles NP Jan 14, 2019 14:58
--- NOTE | 2019-01-15 13:38 | NUR ---
*-* INSURANCE *-* UPDATED CLINICALS AND REVIEWS HAVE BEEN FAXED TO: [facility] F: [phone] P: [phone] Addendum: 01/15/19 at 1339 by TERESA SESAY CM DISCHARGE SUMMARY
== END 2019-01-11 22:30 | DRG 303 ==
LOC: EDBD 01:55 → EMR 02:05 → 2E 02:54 → EDBEDREQ 03:14 → 4E 01-02 09:41
DX: I25.119 Atherosclerotic heart disease of native coronary artery with unspecified angina pectoris (principal); N39.0 Urinary tract infection, site not specified; I50.32 Chronic diastolic (congestive) heart failure; I48.0 Paroxysmal atrial fibrillation; E66.9 Obesity, unspecified; Z68.33 Body mass index [BMI] 33.0-33.9, adult; I44.0 Atrioventricular block, first degree; I44.7 Left bundle-branch block, unspecified; Z86.711 Personal history of pulmonary embolism; G47.33 Obstructive sleep apnea (adult) (pediatric); Z79.01 Long term (current) use of anticoagulants; I27.20 Pulmonary hypertension, unspecified; B96.1 Klebsiella pneumoniae [K. pneumoniae] as the cause of diseases classified elsewhere; B96.5 Pseudomonas (aeruginosa) (mallei) (pseudomallei) as the cause of diseases classified elsewhere; I35.0 Nonrheumatic aortic (valve) stenosis; I25.10 Atherosclerotic heart disease of native coronary artery without angina pectoris; Z86.73 Personal history of transient ischemic attack (TIA), and cerebral infarction without residual deficits; Z95.4 Presence of other heart-valve replacement; E78.5 Hyperlipidemia, unspecified; D64.9 Anemia, unspecified; L89.151 Pressure ulcer of sacral region, stage 1; K25.7 Chronic gastric ulcer without hemorrhage or perforation; I34.0 Nonrheumatic mitral (valve) insufficiency; I36.1 Nonrheumatic tricuspid (valve) insufficiency; K25.9 Gastric ulcer, unspecified as acute or chronic, without hemorrhage or perforation; I12.9 Hypertensive chronic kidney disease with stage 1 through stage 4 chronic kidney disease, or unspecified chronic kidney disease; N18.9 Chronic kidney disease, unspecified
CPT/HCPCS: 36415; 71045; 72192; 74178; 76700; 78452; 80048; 80053; 80170; 81003; 82550; 82553; 83735; 84484; 85025; 85610; 87081; 87086; 87181; 93005; 93017; 93306; 94660; 94664; 96365; 99285; J2405; J2785; J8499